=== PATIENT | male | born 1935 | race Caucasian/White ===

== ENCOUNTER → 2018-05-06 | Outpatient (REF) | payer MEDICARE, OTHER ==
[2018-05-06 18:35] LABS: APPEARANCE, URINE TURBID (CLEAR); BACTERIA, URINE AUTO 1+ (NEGATIVE); BILIRUBIN, URINE AUTO NEGATIVE (NEGATIVE); BLOOD, URINE BLOOD 2+ (NEGATIVE); COLOR, URINE YELLOW (YELLOW); GLUCOSE, URINE (UA) AUTO 2+ mg/dL (NEGATIVE); KETONE, URINE AUTO NEGATIVE (NEGATIVE); LEUKOCYTE ESTERASE, URINE AUTO 2+ (NEGATIVE); NITRITE, URINE AUTO POSITIVE (NEGATIVE); PROTEIN, URINE AUTO 2+ mg/dL (NEGATIVE); RBC, URINE AUTO 34 /HPF (0-3); SPECIFIC GRAVITY URINE AUTO 1.017 (1.002-1.035); SQUAMOUS EPITHELIAL CELL UR AU 0 /HPF (0-6); UROBILINOGEN, URINE AUTO 0.2 mg/dL (0.0-2.0); WBC, URINE AUTO TNTC /HPF (0-3)
== END ==
LOC: M SMT 16:51
DX: R35.0 Frequency of micturition (principal); R30.0 Dysuria
CPT/HCPCS: 81001

== ENCOUNTER 2018-05-11 14:02 | Inpatient (IN) | payer MEDICARE, OTHER ==
[2018-05-11 17:15] LABS: BASO # 0.1 10^3/uL (0.0-0.2); BASO % 0.5 % (0.0-1.0); EOS % 0.1 % (0.0-3.0); HEMATOCRIT 40.3 % (42.0-52.0); HEMOGLOBIN 13.3 g/dl (13.5-17.5); IMMATURE GRANULOCYTE % 0.7 % (0-3.0); LYMPH # 1.4 10^3/uL (1.5-4.5); LYMPH % 11.5 % (24.0-44.0); MEAN CORPUSCULAR HEMOGLOBIN 30.8 pg (27.0-33.0); MEAN CORPUSCULAR VOLUME 93.3 fl (80.0-96.0); MONO # 0.9 10^3/uL (0.0-0.8); MONO % 7.4 % (0.0-5.0); NEUTROPHILS # 9.8 10^3/uL (1.8-7.7); NEUTROPHILS % 79.8 % (36.0-66.0); PLATELET COUNT, AUTOMATED 272 10^3/uL (150-450); RED BLOOD COUNT 4.32 10^6/uL (4.30-6.10); RED CELL DISTRIBUTION WIDTH 12.8 % (11.5-14.5); WHITE BLOOD COUNT 12.2 10^3/uL (4.0-10.0)
[2018-05-11 17:39] LABS: ALBUMIN 3.1 GM/DL (3.2-5.2); ALKALINE PHOSPHATASE 93 U/L (45-117); ALT/SGPT 15 U/L (12-78); ANION GAP 5 MEQ/L (8-16); AST/SGOT 10 U/L (7-37); BILIRUBIN,DIRECT 0.2 MG/DL (0.0-0.2); BILIRUBIN,TOTAL 0.8 MG/DL (0.2-1.0); BLOOD UREA NITROGEN 14 MG/DL (7-18); CALCIUM LEVEL 8.6 MG/DL (8.8-10.2); CARBON DIOXIDE LEVEL 30 MEQ/L (21-32); CHLORIDE LEVEL 103 MEQ/L (98-107); CPK CREATINE PHOSPHOKINASE 40 U/L (39-308); CREATININE FOR GFR 0.97 MG/DL (0.70-1.30); GLOMERULAR FILTRATION RATE > 60.0 (>35); GLUCOSE, FASTING 208 MG/DL (70-100); POTASSIUM SERUM 3.8 MEQ/L (3.5-5.1); SODIUM LEVEL 138 MEQ/L (136-145); TOTAL PROTEIN 7.5 GM/DL (6.4-8.2)
[2018-05-11 17:52] LABS: ERYTHROCYTE SEDIMENTATION RATE 59 mm/hr (0-30)
[2018-05-11] MEDS: PIPERACILLIN/TAZOBACTAM SOD 3.375 GM in D5W MINI-BAG PLUS 50 ML IV (19:23)
[2018-05-11] MEDS: HumaLOG INSULIN (NovoLOG) PER UNIT SC (21:00)
[2018-05-11 21:22] LABS: KETONE, URINE AUTO RFX NEGATIVE (NEGATIVE); NITRITE, URINE AUTO RFX NEGATIVE (NEGATIVE); RBC, URINE AUTO RFX 8 /HPF (0-3); SPECIFIC GRAVITY UR AUTO RFX 1.016 (1.002-1.035); SQUAM EPITHELIAL CELL UR AURFX 1 /HPF (0-6)
[2018-05-11 21:26] LABS: LEUKOCYTE ESTERASE UR AUTO RFX 3+ (NEGATIVE); WBC, URINE AUTO RFX 130 /HPF (0-3)
[2018-05-12] MEDS ORDERED: GLUCAGON FOR INJ 1 MG VIAL (J1610) SC (00:15)
[2018-05-12] MEDS ORDERED: GLUCOSE 4 GM CHEW TABLET PO (00:15)
[2018-05-12] MEDS ORDERED: DEXTROSE 50% 50 ML SYRINGE IV (00:15)
[2018-05-12 00:28] LABS: URIC ACID 4.1 MG/DL (3.5-7.2)
[2018-05-12] MEDS ORDERED: cefTRIAXone SOD 2 GM VIAL (J0696) IM (02:00)
[2018-05-12] MEDS: VANCOMYCIN HCL 1,000 MG, VIAL MATE ADAPTER 1 EACH in D5W 250 ML IV ×2 (02:10→12:20)
[2018-05-12] MEDS: NS 1,000 ML IV ×3 (02:10→19:53)
[2018-05-12 02:15] LABS: BEDSIDE GLUCOSE 176 MG/DL (83-110)
[2018-05-12] MEDS: TAMSULOSIN 0.4 MG CAP PO ×2 (02:27→20:02)
[2018-05-12] MEDS: ATORVASTATIN 20 MG TAB PO ×2 (02:27→20:02)
[2018-05-12] MEDS: FINASTERIDE 5 MG TAB PO ×2 (02:27→20:02)
[2018-05-12] MEDS: cefTRIAXone SOD 2 GM in D5W MINI-BAG PLUS 50 ML IV (03:25)
[2018-05-12 06:14] LABS: BASO % 0.3 % (0.0-1.0); HEMATOCRIT 36.9 % (42.0-52.0); HEMOGLOBIN 12.5 g/dl (13.5-17.5); LYMPH # 1.2 10^3/uL (1.5-4.5); LYMPH % 8.7 % (24.0-44.0); MEAN CORPUSCULAR HEMOGLOBIN 30.9 pg (27.0-33.0); MEAN CORPUSCULAR HGB CONC 33.9 g/dl (32.0-36.5); MEAN CORPUSCULAR VOLUME 91.1 fl (80.0-96.0); MONO # 1.1 10^3/uL (0.0-0.8); MONO % 8.1 % (0.0-5.0); NEUTROPHILS # 11.4 10^3/uL (1.8-7.7); NEUTROPHILS % 81.9 % (36.0-66.0); PLATELET COUNT, AUTOMATED 252 10^3/uL (150-450); RED BLOOD COUNT 4.05 10^6/uL (4.30-6.10); RED CELL DISTRIBUTION WIDTH 12.8 % (11.5-14.5); WHITE BLOOD COUNT 13.9 10^3/uL (4.0-10.0)
[2018-05-12 06:39] LABS: ANION GAP 10 MEQ/L (8-16); BLOOD UREA NITROGEN 13 MG/DL (7-18); CALCIUM LEVEL 8.3 MG/DL (8.8-10.2); CARBON DIOXIDE LEVEL 26 MEQ/L (21-32); CHLORIDE LEVEL 102 MEQ/L (98-107); CREATININE FOR GFR 0.81 MG/DL (0.70-1.30); GLOMERULAR FILTRATION RATE > 60.0 (>35); GLUCOSE, FASTING 179 MG/DL (70-100); POTASSIUM SERUM 3.5 MEQ/L (3.5-5.1); SODIUM LEVEL 138 MEQ/L (136-145)
[2018-05-12] MEDS ORDERED: LIDOCAINE 1% MDV 20ML VIAL As Ordered (08:08)
[2018-05-12] MEDS: LIDOCAINE 1% MDV 20ML VIAL SC (08:23)
[2018-05-12] MEDS: ENOXAPARIN 40 MG/0.4 ML SYRINGE (J1650) SC (09:09)
[2018-05-12] MEDS: HumaLOG INSULIN (NovoLOG) PER UNIT SC ×4 (09:09→20:14)
[2018-05-12] MEDS: FOLIC ACID 1 MG TAB PO (09:22)
[2018-05-12] MEDS: OMEGA-3 1050MG CAPSULE PO (09:22)
[2018-05-12] MEDS: CEFEPIME HCL 1 GM in D5W MINI-BAG PLUS 50 ML IV ×2 (09:23→20:02)
[2018-05-12] MEDS: ACETAMINOPHEN TAB 650MG DOSE (2X325MG) PO (09:23)
[2018-05-12 09:34] LABS: CRYSTALS, BODY FLUID NONE SEEN (NONE SEEN); SOURCE, BODY FLUID CRYSTALS LFT KNEE
[2018-05-12 09:35] LABS: SOURCE, BODY FLUID GLUCOSE LFT KNEE; SOURCE, BODY FLUID URIC ACID LFT KNEE; URIC ACID, BODY FLUID 4.7 MG/DL (NOT ESTABLISHED)
[2018-05-12] MEDS: ASPIRIN 81 MG ENTERIC TAB PO (09:46)
[2018-05-12 09:54] LABS: RBC BODY FLUID 8 10^3/uL (<2); WBC BODY FLUID 42691 /uL (0-10)
[2018-05-12 09:57] LABS: APPEARANCE, BODY FLUID TURBID (CLEAR); BF DIFF IF INDICATED? YES (NO); SYNOVIAL FLUID COLOR YELLOW (YELLOW)
[2018-05-12 09:58] LABS: SOURCE, BODY FLUID LFT KNEE
[2018-05-12] MEDS ORDERED: NS 1,000 ML IV (10:45)
[2018-05-12 11:07] LABS: BF MONONUCLEAR CELL % 8.2 % (0-0); BF POLYMORPHONUCLEAR CELL % 91.8 % (0-0); RBC BODY FLUID 3 10^3/uL (<2); WBC BODY FLUID 27794 /uL (0-10)
[2018-05-12 11:09] LABS: APPEARANCE, BODY FLUID TURBID (CLEAR); BF DIFF IF INDICATED? YES (NO); SOURCE, BODY FLUID RT KNEE; SYNOVIAL FLUID COLOR YELLOW (YELLOW)
[2018-05-12 11:28] LABS: CRYSTALS, BODY FLUID NONE SEEN (NONE SEEN); SOURCE, BODY FLUID CRYSTALS RT KNEE
[2018-05-12 11:33] LABS: BEDSIDE GLUCOSE 187 MG/DL (83-110)
[2018-05-12 11:40] LABS: SOURCE, BODY FLUID GLUCOSE RT KNEE; SOURCE, BODY FLUID URIC ACID RT KNEE; URIC ACID, BODY FLUID 4.6 MG/DL (NOT ESTABLISHED)
[2018-05-12] MEDS: PERCOCET 5MG/325MG TAB PO (12:21)
[2018-05-12 14:03] LABS: BODY FLUID RHEUMATOID SCREEN NEGATIVE (NEGATIVE); MUCIN CLOT TEST 4+ (4+)
[2018-05-12 14:04] LABS: BODY FLUID RHEUMATOID SCREEN NEGATIVE (NEGATIVE); MUCIN CLOT TEST 4+ (4+)
[2018-05-12 16:38] LABS: BEDSIDE GLUCOSE 194 MG/DL (83-110)
[2018-05-12 19:57] LABS: BEDSIDE GLUCOSE 152 MG/DL (83-110)
[2018-05-13] MEDS: NS 1,000 ML IV ×2 (01:52→15:00)
[2018-05-13 06:07] LABS: BEDSIDE GLUCOSE 149 MG/DL (83-110)
[2018-05-13 08:35] LABS: HEMATOCRIT 34.9 % (42.0-52.0); HEMOGLOBIN 11.5 g/dl (13.5-17.5); MEAN CORPUSCULAR HEMOGLOBIN 30.2 pg (27.0-33.0); MEAN CORPUSCULAR VOLUME 91.6 fl (80.0-96.0); PLATELET COUNT, AUTOMATED 231 10^3/uL (150-450); RED BLOOD COUNT 3.81 10^6/uL (4.30-6.10); RED CELL DISTRIBUTION WIDTH 12.7 % (11.5-14.5); WHITE BLOOD COUNT 10.8 10^3/uL (4.0-10.0)
[2018-05-13 08:40] LABS: ANION GAP 8 MEQ/L (8-16); BLOOD UREA NITROGEN 14 MG/DL (7-18); CALCIUM LEVEL 7.8 MG/DL (8.8-10.2); CARBON DIOXIDE LEVEL 25 MEQ/L (21-32); CHLORIDE LEVEL 107 MEQ/L (98-107); CREATININE FOR GFR 0.71 MG/DL (0.70-1.30); GLOMERULAR FILTRATION RATE > 60.0 (>35); GLUCOSE, FASTING 148 MG/DL (70-100); POTASSIUM SERUM 3.4 MEQ/L (3.5-5.1); RHEUMATOID FACTOR QUANT 10.6 IU/ML (<15.0); SODIUM LEVEL 140 MEQ/L (136-145)
[2018-05-13 08:54] LABS: ERYTHROCYTE SEDIMENTATION RATE 84 mm/hr (0-30)
[2018-05-13] MEDS: ENOXAPARIN 40 MG/0.4 ML SYRINGE (J1650) SC (09:23)
[2018-05-13] MEDS: ACETAMINOPHEN TAB 650MG DOSE (2X325MG) PO (09:23)
[2018-05-13] MEDS: HumaLOG INSULIN (NovoLOG) PER UNIT SC ×4 (09:23→21:00)
[2018-05-13] MEDS: OMEGA-3 1050MG CAPSULE PO (09:24)
[2018-05-13] MEDS: CEFEPIME HCL 1 GM in D5W MINI-BAG PLUS 50 ML IV ×2 (09:24→21:23)
[2018-05-13] MEDS: ASPIRIN 81 MG ENTERIC TAB PO (09:24)
[2018-05-13] MEDS: FOLIC ACID 1 MG TAB PO (09:24)
[2018-05-13 11:31] LABS: BEDSIDE GLUCOSE 160 MG/DL (83-110)
[2018-05-13 11:49] LABS: VANCOMYCIN LEVEL TROUGH 3.6 UG/ML (10.0-20.0)
[2018-05-13 12:05] LABS: BEDSIDE GLUCOSE 154 MG/DL (83-110)
[2018-05-13] MEDS: DICLOFENAC EPOLAMINE 1.3 % PATCH TOP ×2 (12:22→21:25)
[2018-05-13] MEDS: VANCOMYCIN HCL 1,000 MG, VIAL MATE ADAPTER 1 EACH in D5W 250 ML IV (12:22)
[2018-05-13 16:31] LABS: BEDSIDE GLUCOSE 148 MG/DL (83-110)
[2018-05-13 20:33] LABS: BEDSIDE GLUCOSE 197 MG/DL (83-110)
[2018-05-13] MEDS: TAMSULOSIN 0.4 MG CAP PO (21:25)
[2018-05-13] MEDS: ATORVASTATIN 20 MG TAB PO (21:25)
[2018-05-13] MEDS: FINASTERIDE 5 MG TAB PO (21:25)
[2018-05-14 00:07] LABS: Lyme Disease IgG/IgM Antibodie <0.91 ISR (0.00-0.90); Lyme Disease IgM Ab Quantitati <0.80 index (0.00-0.79)
[2018-05-14] MEDS: NS 1,000 ML IV ×2 (00:14→13:39)
[2018-05-14 06:25] LABS: HEMATOCRIT 33.8 % (42.0-52.0); HEMOGLOBIN 11.3 g/dl (13.5-17.5); MEAN CORPUSCULAR HEMOGLOBIN 30.1 pg (27.0-33.0); MEAN CORPUSCULAR HGB CONC 33.4 g/dl (32.0-36.5); MEAN CORPUSCULAR VOLUME 90.1 fl (80.0-96.0); PLATELET COUNT, AUTOMATED 228 10^3/uL (150-450); RED BLOOD COUNT 3.75 10^6/uL (4.30-6.10); RED CELL DISTRIBUTION WIDTH 12.7 % (11.5-14.5); WHITE BLOOD COUNT 8.7 10^3/uL (4.0-10.0)
[2018-05-14 06:58] LABS: ANION GAP 7 MEQ/L (8-16); BLOOD UREA NITROGEN 13 MG/DL (7-18); CALCIUM LEVEL 7.9 MG/DL (8.8-10.2); CARBON DIOXIDE LEVEL 25 MEQ/L (21-32); CHLORIDE LEVEL 108 MEQ/L (98-107); GLOMERULAR FILTRATION RATE > 60.0 (>35); GLUCOSE, FASTING 161 MG/DL (70-100); POTASSIUM SERUM 3.4 MEQ/L (3.5-5.1); SODIUM LEVEL 140 MEQ/L (136-145)
[2018-05-14 07:12] LABS: ERYTHROCYTE SEDIMENTATION RATE 73 mm/hr (0-30)
[2018-05-14] MEDS: OMEGA-3 1050MG CAPSULE PO (08:04)
[2018-05-14] MEDS: DICLOFENAC EPOLAMINE 1.3 % PATCH TOP ×2 (08:04→20:34)
[2018-05-14] MEDS: FOLIC ACID 1 MG TAB PO (08:04)
[2018-05-14] MEDS: CEFEPIME HCL 1 GM in D5W MINI-BAG PLUS 50 ML IV ×2 (08:04→20:34)
[2018-05-14] MEDS: ASPIRIN 81 MG ENTERIC TAB PO (08:04)
[2018-05-14] MEDS: ENOXAPARIN 40 MG/0.4 ML SYRINGE (J1650) SC (08:04)
[2018-05-14] MEDS: POTASSIUM CHLORIDE 10 MEQ SR TABLET PO (08:23)
[2018-05-14] MEDS: HumaLOG INSULIN (NovoLOG) PER UNIT SC ×4 (08:24→20:33)
[2018-05-14 11:26] LABS: BEDSIDE GLUCOSE 180 MG/DL (83-110)
[2018-05-14 16:37] LABS: BEDSIDE GLUCOSE 154 MG/DL (83-110)
[2018-05-14 20:19] LABS: BEDSIDE GLUCOSE 290 MG/DL (83-110)
[2018-05-14] MEDS: FINASTERIDE 5 MG TAB PO (20:33)
[2018-05-14] MEDS: ATORVASTATIN 20 MG TAB PO (20:33)
[2018-05-14] MEDS: amLODIPine 5 MG TAB PO (20:33)
[2018-05-14] MEDS: TAMSULOSIN 0.4 MG CAP PO (20:33)
[2018-05-14] MEDS: ACETAMINOPHEN TAB 650MG DOSE (2X325MG) PO (22:18)
[2018-05-15] MEDS: ACETAMINOPHEN TAB 650MG DOSE (2X325MG) PO (03:11)
[2018-05-15] MEDS: NS 1,000 ML IV ×2 (05:09→22:07)
[2018-05-15 05:54] LABS: ANION GAP 7 MEQ/L (8-16); BLOOD UREA NITROGEN 14 MG/DL (7-18); CALCIUM LEVEL 7.8 MG/DL (8.8-10.2); CARBON DIOXIDE LEVEL 27 MEQ/L (21-32); CHLORIDE LEVEL 110 MEQ/L (98-107); CREATININE FOR GFR 0.61 MG/DL (0.70-1.30); GLOMERULAR FILTRATION RATE > 60.0 (>35); GLUCOSE, FASTING 172 MG/DL (70-100); POTASSIUM SERUM 3.7 MEQ/L (3.5-5.1); SODIUM LEVEL 144 MEQ/L (136-145)
[2018-05-15] MEDS: ASPIRIN 81 MG ENTERIC TAB PO (08:09)
[2018-05-15] MEDS: amLODIPine 10 MG TAB PO (08:09)
[2018-05-15] MEDS: FOLIC ACID 1 MG TAB PO (08:09)
[2018-05-15] MEDS: OMEGA-3 1050MG CAPSULE PO (08:09)
[2018-05-15] MEDS: HumaLOG INSULIN (NovoLOG) PER UNIT SC ×4 (08:10→21:05)
[2018-05-15] MEDS: DICLOFENAC EPOLAMINE 1.3 % PATCH TOP ×2 (08:10→21:06)
[2018-05-15] MEDS: traMADol 50 MG TAB PO (09:58)
[2018-05-15 11:37] LABS: BEDSIDE GLUCOSE 290 MG/DL (83-110)
[2018-05-15 12:12] LABS: HEMOGLOBIN 11.4 g/dl (13.5-17.5); MEAN CORPUSCULAR HEMOGLOBIN 30.3 pg (27.0-33.0); MEAN CORPUSCULAR HGB CONC 33.5 g/dl (32.0-36.5); MEAN CORPUSCULAR VOLUME 90.4 fl (80.0-96.0); PLATELET COUNT, AUTOMATED 233 10^3/uL (150-450); RED BLOOD COUNT 3.76 10^6/uL (4.30-6.10); RED CELL DISTRIBUTION WIDTH 12.8 % (11.5-14.5); WHITE BLOOD COUNT 7.9 10^3/uL (4.0-10.0)
[2018-05-15 12:32] LABS: ERYTHROCYTE SEDIMENTATION RATE 77 mm/hr (0-30)
[2018-05-15] MEDS: HYDROCORTISONE 1% CREAM 30 GM TOP ×2 (13:21→21:06)
[2018-05-15] MEDS: ACETAMINOPHEN 500 MG TAB PO (15:12)
[2018-05-15 16:51] LABS: BEDSIDE GLUCOSE 135 MG/DL (83-110)
[2018-05-15 20:21] LABS: BEDSIDE GLUCOSE 245 MG/DL (83-110)
[2018-05-15] MEDS: TAMSULOSIN 0.4 MG CAP PO (21:05)
[2018-05-15] MEDS: FINASTERIDE 5 MG TAB PO (21:05)
[2018-05-15] MEDS: ATORVASTATIN 20 MG TAB PO (21:05)
[2018-05-16] MEDS: ACETAMINOPHEN 500 MG TAB PO ×2 (04:54→22:08)
[2018-05-16 06:58] LABS: HEMATOCRIT 32.4 % (42.0-52.0); HEMOGLOBIN 10.9 g/dl (13.5-17.5); MEAN CORPUSCULAR HEMOGLOBIN 30.1 pg (27.0-33.0); MEAN CORPUSCULAR HGB CONC 33.6 g/dl (32.0-36.5); MEAN CORPUSCULAR VOLUME 89.5 fl (80.0-96.0); PLATELET COUNT, AUTOMATED 250 10^3/uL (150-450); RED BLOOD COUNT 3.62 10^6/uL (4.30-6.10); RED CELL DISTRIBUTION WIDTH 12.6 % (11.5-14.5); WHITE BLOOD COUNT 7.3 10^3/uL (4.0-10.0)
[2018-05-16 07:21] LABS: ANION GAP 8 MEQ/L (8-16); BLOOD UREA NITROGEN 13 MG/DL (7-18); C REACTIVE PROTEIN QUANTITATIV 9.31 MG/DL (0.00-0.30); CALCIUM LEVEL 8.3 MG/DL (8.8-10.2); CARBON DIOXIDE LEVEL 25 MEQ/L (21-32); CHLORIDE LEVEL 105 MEQ/L (98-107); CREATININE FOR GFR 0.56 MG/DL (0.70-1.30); GLOMERULAR FILTRATION RATE > 60.0 (>35); GLUCOSE, FASTING 176 MG/DL (70-100); POTASSIUM SERUM 3.7 MEQ/L (3.5-5.1); SODIUM LEVEL 138 MEQ/L (136-145)
[2018-05-16 07:31] LABS: ERYTHROCYTE SEDIMENTATION RATE 77 mm/hr (0-30)
[2018-05-16] MEDS: OMEGA-3 1050MG CAPSULE PO (07:42)
[2018-05-16] MEDS: ASPIRIN 81 MG ENTERIC TAB PO (07:42)
[2018-05-16] MEDS: HYDROCORTISONE 1% CREAM 30 GM TOP ×2 (07:43→20:20)
[2018-05-16] MEDS: FOLIC ACID 1 MG TAB PO (07:43)
[2018-05-16] MEDS: amLODIPine 10 MG TAB PO (07:43)
[2018-05-16] MEDS: HumaLOG INSULIN (NovoLOG) PER UNIT SC ×4 (07:44→20:19)
[2018-05-16] MEDS: DICLOFENAC EPOLAMINE 1.3 % PATCH TOP ×2 (07:44→20:20)
[2018-05-16] MEDS: PERCOCET 5MG/325MG TAB PO (07:45)
[2018-05-16] MEDS ORDERED: traMADol 50 MG TAB PO (08:30)
[2018-05-16 11:47] LABS: BEDSIDE GLUCOSE 214 MG/DL (83-110)
[2018-05-16 16:15] LABS: BEDSIDE GLUCOSE 256 MG/DL (83-110)
[2018-05-16 20:13] LABS: BEDSIDE GLUCOSE 146 MG/DL (83-110)
[2018-05-16] MEDS: FINASTERIDE 5 MG TAB PO (20:19)
[2018-05-16] MEDS: TAMSULOSIN 0.4 MG CAP PO (20:19)
[2018-05-16] MEDS: ATORVASTATIN 20 MG TAB PO (20:19)
[2018-05-17] MEDS: ACETAMINOPHEN 500 MG TAB PO (06:30)
[2018-05-17 06:45] LABS: HEMATOCRIT 35.3 % (42.0-52.0); HEMOGLOBIN 11.7 g/dl (13.5-17.5); MEAN CORPUSCULAR HEMOGLOBIN 30.1 pg (27.0-33.0); MEAN CORPUSCULAR HGB CONC 33.1 g/dl (32.0-36.5); MEAN CORPUSCULAR VOLUME 90.7 fl (80.0-96.0); PLATELET COUNT, AUTOMATED 300 10^3/uL (150-450); RED BLOOD COUNT 3.89 10^6/uL (4.30-6.10); RED CELL DISTRIBUTION WIDTH 12.7 % (11.5-14.5); WHITE BLOOD COUNT 6.5 10^3/uL (4.0-10.0)
[2018-05-17 07:07] LABS: ANION GAP 9 MEQ/L (8-16); BLOOD UREA NITROGEN 13 MG/DL (7-18); C REACTIVE PROTEIN QUANTITATIV 7.22 MG/DL (0.00-0.30); CALCIUM LEVEL 8.5 MG/DL (8.8-10.2); CARBON DIOXIDE LEVEL 29 MEQ/L (21-32); CHLORIDE LEVEL 106 MEQ/L (98-107); CREATININE FOR GFR 0.66 MG/DL (0.70-1.30); GLOMERULAR FILTRATION RATE > 60.0 (>35); GLUCOSE, FASTING 165 MG/DL (70-100); POTASSIUM SERUM 3.7 MEQ/L (3.5-5.1); SODIUM LEVEL 144 MEQ/L (136-145)
[2018-05-17 07:10] LABS: ERYTHROCYTE SEDIMENTATION RATE 73 mm/hr (0-30)
[2018-05-17] MEDS: ASPIRIN 81 MG ENTERIC TAB PO (08:08)
[2018-05-17] MEDS: OMEGA-3 1050MG CAPSULE PO (08:08)
[2018-05-17] MEDS: FOLIC ACID 1 MG TAB PO (08:09)
[2018-05-17] MEDS: amLODIPine 10 MG TAB PO (08:09)
[2018-05-17] MEDS: HumaLOG INSULIN (NovoLOG) PER UNIT SC ×2 (08:10→12:48)
[2018-05-17] MEDS: DICLOFENAC EPOLAMINE 1.3 % PATCH TOP (08:10)
[2018-05-17] MEDS: HYDROCORTISONE 1% CREAM 30 GM TOP (08:11)
[2018-05-17 11:58] LABS: BEDSIDE GLUCOSE 205 MG/DL (83-110)
== END 2018-05-17 14:34 | DRG 872 ==
LOC: M ED INP 23:53 → M MSPAV 05-12 00:52 → M ED 14:02
PROC: 0S9D3ZZ Drainage of Left Knee Joint, Percutaneous Approach (ICD-10-PCS; principal; 2018-05-12)
PROC: 0S9C3ZZ Drainage of Right Knee Joint, Percutaneous Approach (ICD-10-PCS; 2018-05-12)
DX: A41.9 Sepsis, unspecified organism (principal); N39.0 Urinary tract infection, site not specified; E11.9 Type 2 diabetes mellitus without complications; N40.0 Benign prostatic hyperplasia without lower urinary tract symptoms; Z79.82 Long term (current) use of aspirin; Z79.84 Long term (current) use of oral hypoglycemic drugs; Z79.899 Other long term (current) drug therapy; Z88.2 Allergy status to sulfonamides; Z98.1 Arthrodesis status; M25.461 Effusion, right knee; M25.462 Effusion, left knee; M17.0 Bilateral primary osteoarthritis of knee

== ENCOUNTER 2018-05-17 14:38 | Inpatient (IN) | payer MEDICARE, OTHER ==
[2018-05-17] MEDS ORDERED: BISACODYL 10 MG SUPP PR (15:15)
[2018-05-17] MEDS ORDERED: ONDANSETRON 4 MG TAB (S0181) PO (15:15)
[2018-05-17] MEDS ORDERED: FLEET ENEMA PR (15:15)
[2018-05-17] MEDS ORDERED: SIMETHICONE 80 MG CHEW TAB PO (15:15)
[2018-05-17] MEDS: MAGNESIUM CITRATE 300 ML BTL PO (17:00)
[2018-05-17] MEDS: ACETAMINOPHEN 500 MG TAB PO ×2 (17:01→21:51)
[2018-05-17] MEDS: MIRALAX *UNIT DOSE* 17GM PACKET PO (17:01)
[2018-05-17] MEDS: metFORMIN (GLUCOPHAGE) 500 MG TAB PO (17:01)
[2018-05-17] MEDS: ATORVASTATIN 20 MG TAB PO (21:50)
[2018-05-17] MEDS: DICLOFENAC EPOLAMINE 1.3 % PATCH TOP (21:51)
[2018-05-17] MEDS: HEPARIN SOD (PORCINE) 5000 UNITS/ML VIAL SC (21:51)
[2018-05-17] MEDS: FINASTERIDE 5 MG TAB PO (21:51)
[2018-05-17] MEDS: SENOKOT S TAB PO (21:51)
[2018-05-17] MEDS: TAMSULOSIN 0.4 MG CAP PO (21:51)
[2018-05-18 07:03] LABS: BASO # 0.1 10^3/uL (0.0-0.2); BASO % 0.7 % (0.0-1.0); EOS # 0.5 10^3/uL (0.0-0.50); EOS % 6.2 % (0.0-3.0); HEMATOCRIT 35.9 % (42.0-52.0); HEMOGLOBIN 11.9 g/dl (13.5-17.5); IMMATURE GRANULOCYTE % 0.4 % (0-3.0); LYMPH # 1.5 10^3/uL (1.5-4.5); LYMPH % 19.6 % (24.0-44.0); MEAN CORPUSCULAR HGB CONC 33.1 g/dl (32.0-36.5); MEAN CORPUSCULAR VOLUME 90.4 fl (80.0-96.0); MONO # 0.6 10^3/uL (0.0-0.8); MONO % 7.3 % (0.0-5.0); NEUTROPHILS % 65.8 % (36.0-66.0); PLATELET COUNT, AUTOMATED 360 10^3/uL (150-450); RED BLOOD COUNT 3.97 10^6/uL (4.30-6.10); RED CELL DISTRIBUTION WIDTH 12.8 % (11.5-14.5); WHITE BLOOD COUNT 7.5 10^3/uL (4.0-10.0)
[2018-05-18 07:34] LABS: ALBUMIN 2.1 GM/DL (3.2-5.2); ALBUMIN/GLOBULIN RATIO 0.46 (1.00-1.93); ALKALINE PHOSPHATASE 88 U/L (45-117); ALT/SGPT 43 U/L (12-78); ANION GAP 6 MEQ/L (8-16); AST/SGOT 28 U/L (7-37); BILIRUBIN,TOTAL 0.4 MG/DL (0.2-1.0); BLOOD UREA NITROGEN 12 MG/DL (7-18); CALCIUM LEVEL 8.5 MG/DL (8.8-10.2); CARBON DIOXIDE LEVEL 31 MEQ/L (21-32); CHLORIDE LEVEL 105 MEQ/L (98-107); CREATININE FOR GFR 0.64 MG/DL (0.70-1.30); GLOMERULAR FILTRATION RATE > 60.0 (>35); GLUCOSE, FASTING 159 MG/DL (70-100); SODIUM LEVEL 142 MEQ/L (136-145); TOTAL PROTEIN 6.7 GM/DL (6.4-8.2)
[2018-05-18] MEDS: DICLOFENAC EPOLAMINE 1.3 % PATCH TOP ×2 (08:04→21:26)
[2018-05-18] MEDS: HEPARIN SOD (PORCINE) 5000 UNITS/ML VIAL SC ×2 (08:04→21:26)
[2018-05-18] MEDS: metFORMIN (GLUCOPHAGE) 500 MG TAB PO ×2 (08:05→17:08)
[2018-05-18] MEDS: ACETAMINOPHEN 500 MG TAB PO ×3 (08:05→21:25)
[2018-05-18] MEDS: amLODIPine 10 MG TAB PO (08:05)
[2018-05-18] MEDS: SENOKOT S TAB PO ×2 (08:05→21:00)
[2018-05-18] MEDS: OMEGA-3 1050MG CAPSULE PO (08:05)
[2018-05-18] MEDS: MIRALAX *UNIT DOSE* 17GM PACKET PO (08:06)
[2018-05-18] MEDS: ASPIRIN 81 MG ENTERIC TAB PO (08:06)
[2018-05-18] MEDS: FOLIC ACID 1 MG TAB PO (08:06)
[2018-05-18] MEDS ORDERED: traZODone 50 MG TAB PO (15:15)
[2018-05-18] MEDS: traZODone 50 MG TAB PO (21:25)
[2018-05-18] MEDS: FINASTERIDE 5 MG TAB PO (21:25)
[2018-05-18] MEDS: ATORVASTATIN 20 MG TAB PO (21:25)
[2018-05-18] MEDS: TAMSULOSIN 0.4 MG CAP PO (21:25)
[2018-05-19] MEDS: metFORMIN (GLUCOPHAGE) 500 MG TAB PO ×2 (07:59→17:58)
[2018-05-19] MEDS: HEPARIN SOD (PORCINE) 5000 UNITS/ML VIAL SC ×2 (07:59→20:39)
[2018-05-19] MEDS: amLODIPine 10 MG TAB PO (07:59)
[2018-05-19] MEDS: OMEGA-3 1050MG CAPSULE PO (07:59)
[2018-05-19] MEDS: FOLIC ACID 1 MG TAB PO (07:59)
[2018-05-19] MEDS: ACETAMINOPHEN 500 MG TAB PO ×3 (08:00→20:38)
[2018-05-19] MEDS: DICLOFENAC EPOLAMINE 1.3 % PATCH TOP ×2 (08:00→20:38)
[2018-05-19] MEDS: MIRALAX *UNIT DOSE* 17GM PACKET PO (08:00)
[2018-05-19] MEDS: ASPIRIN 81 MG ENTERIC TAB PO (08:00)
[2018-05-19] MEDS: SENOKOT S TAB PO ×2 (08:01→20:39)
[2018-05-19] MEDS: ANUSOL HC CREAM 30GM TOP (11:20)
[2018-05-19] MEDS: HYDROCORTISONE 1% CREAM 30 GM TOP ×2 (12:10→20:40)
[2018-05-19] MEDS ORDERED: PILL CRUSHER/CUTTER 1 EACH XX (14:45)
[2018-05-19] MEDS: zolPIDEM TARTRATE 5 MG TAB PO (20:39)
[2018-05-19] MEDS: FINASTERIDE 5 MG TAB PO (20:39)
[2018-05-19] MEDS: ATORVASTATIN 20 MG TAB PO (20:39)
[2018-05-19] MEDS: TAMSULOSIN 0.4 MG CAP PO (20:39)
[2018-05-19] MEDS ORDERED: zolPIDEM TARTRATE 5 MG TAB PO (21:00)
[2018-05-20] MEDS: SENOKOT S TAB PO ×2 (08:40→21:44)
[2018-05-20] MEDS: metFORMIN (GLUCOPHAGE) 500 MG TAB PO ×2 (08:40→18:55)
[2018-05-20] MEDS: amLODIPine 10 MG TAB PO (08:40)
[2018-05-20] MEDS: ASPIRIN 81 MG ENTERIC TAB PO (08:40)
[2018-05-20] MEDS: ACETAMINOPHEN 500 MG TAB PO ×3 (08:40→18:56)
[2018-05-20] MEDS: OMEGA-3 1050MG CAPSULE PO (08:40)
[2018-05-20] MEDS: FOLIC ACID 1 MG TAB PO (08:41)
[2018-05-20] MEDS: MIRALAX *UNIT DOSE* 17GM PACKET PO (08:41)
[2018-05-20] MEDS: DICLOFENAC EPOLAMINE 1.3 % PATCH TOP ×2 (08:42→21:44)
[2018-05-20] MEDS: HYDROCORTISONE 1% CREAM 30 GM TOP ×2 (08:42→21:44)
[2018-05-20] MEDS: HEPARIN SOD (PORCINE) 5000 UNITS/ML VIAL SC ×2 (08:42→21:44)
[2018-05-20] MEDS: traMADol 50 MG TAB PO (11:55)
[2018-05-20] MEDS: FINASTERIDE 5 MG TAB PO (21:44)
[2018-05-20] MEDS: ATORVASTATIN 20 MG TAB PO (21:44)
[2018-05-20] MEDS: zolPIDEM TARTRATE 5 MG TAB PO (21:44)
[2018-05-20] MEDS: TAMSULOSIN 0.4 MG CAP PO (21:44)
[2018-05-21] MEDS: ACETAMINOPHEN 500 MG TAB PO ×3 (06:47→17:45)
[2018-05-21] MEDS: HYDROCORTISONE 1% CREAM 30 GM TOP ×2 (09:00→20:57)
[2018-05-21] MEDS: HEPARIN SOD (PORCINE) 5000 UNITS/ML VIAL SC ×2 (09:01→20:55)
[2018-05-21] MEDS: DICLOFENAC EPOLAMINE 1.3 % PATCH TOP ×2 (09:01→20:56)
[2018-05-21] MEDS: MIRALAX *UNIT DOSE* 17GM PACKET PO (09:02)
[2018-05-21] MEDS: FOLIC ACID 1 MG TAB PO (09:02)
[2018-05-21] MEDS: SENOKOT S TAB PO ×2 (09:02→20:55)
[2018-05-21] MEDS: metFORMIN (GLUCOPHAGE) 500 MG TAB PO ×2 (09:02→17:45)
[2018-05-21] MEDS: OMEGA-3 1050MG CAPSULE PO (09:02)
[2018-05-21] MEDS: ASPIRIN 81 MG ENTERIC TAB PO (09:02)
[2018-05-21] MEDS: amLODIPine 10 MG TAB PO (09:02)
[2018-05-21] MEDS: ATORVASTATIN 20 MG TAB PO (20:55)
[2018-05-21] MEDS: FINASTERIDE 5 MG TAB PO (20:55)
[2018-05-21] MEDS: TAMSULOSIN 0.4 MG CAP PO (20:56)
[2018-05-21] MEDS: zolPIDEM TARTRATE 5 MG TAB PO (21:00)
[2018-05-22] MEDS: traMADol 50 MG TAB PO ×2 (05:07→18:14)
[2018-05-22] MEDS: ACETAMINOPHEN 500 MG TAB PO ×3 (06:27→18:13)
[2018-05-22] MEDS: HEPARIN SOD (PORCINE) 5000 UNITS/ML VIAL SC ×2 (08:39→21:16)
[2018-05-22] MEDS: SENOKOT S TAB PO ×2 (08:39→21:15)
[2018-05-22] MEDS: MIRALAX *UNIT DOSE* 17GM PACKET PO (08:39)
[2018-05-22] MEDS: metFORMIN (GLUCOPHAGE) 500 MG TAB PO ×2 (08:40→18:14)
[2018-05-22] MEDS: amLODIPine 10 MG TAB PO (08:40)
[2018-05-22] MEDS: FOLIC ACID 1 MG TAB PO (08:40)
[2018-05-22] MEDS: ASPIRIN 81 MG ENTERIC TAB PO (08:40)
[2018-05-22] MEDS: OMEGA-3 1050MG CAPSULE PO (08:40)
[2018-05-22] MEDS: HYDROCORTISONE 1% CREAM 30 GM TOP ×2 (08:40→21:16)
[2018-05-22] MEDS: DICLOFENAC EPOLAMINE 1.3 % PATCH TOP ×2 (08:41→21:16)
[2018-05-22] MEDS: BISACODYL 5 MG TAB PO (18:13)
[2018-05-22] MEDS: TAMSULOSIN 0.4 MG CAP PO (21:15)
[2018-05-22] MEDS: zolPIDEM TARTRATE 5 MG TAB PO (21:15)
[2018-05-22] MEDS: FINASTERIDE 5 MG TAB PO (21:15)
[2018-05-22] MEDS: ATORVASTATIN 20 MG TAB PO (21:15)
[2018-05-23] MEDS: ACETAMINOPHEN 500 MG TAB PO ×3 (06:14→17:28)
[2018-05-23] MEDS: amLODIPine 10 MG TAB PO (09:47)
[2018-05-23] MEDS: metFORMIN (GLUCOPHAGE) 500 MG TAB PO ×2 (09:47→17:28)
[2018-05-23] MEDS: OMEGA-3 1050MG CAPSULE PO (09:48)
[2018-05-23] MEDS: HEPARIN SOD (PORCINE) 5000 UNITS/ML VIAL SC ×2 (09:48→21:02)
[2018-05-23] MEDS: MOM 30ML SUSPENSION UDC PO (09:48)
[2018-05-23] MEDS: MIRALAX *UNIT DOSE* 17GM PACKET PO (09:48)
[2018-05-23] MEDS: ASPIRIN 81 MG ENTERIC TAB PO (09:48)
[2018-05-23] MEDS: SENOKOT S TAB PO ×2 (09:48→21:02)
[2018-05-23] MEDS: FOLIC ACID 1 MG TAB PO (09:48)
[2018-05-23] MEDS: DICLOFENAC EPOLAMINE 1.3 % PATCH TOP ×2 (09:49→21:11)
[2018-05-23] MEDS: HYDROCORTISONE 1% CREAM 30 GM TOP ×2 (09:49→21:12)
[2018-05-23] MEDS: MAGNESIUM CITRATE 300 ML BTL PO (11:38)
[2018-05-23] MEDS: FINASTERIDE 5 MG TAB PO (21:02)
[2018-05-23] MEDS: ATORVASTATIN 20 MG TAB PO (21:02)
[2018-05-23] MEDS: TAMSULOSIN 0.4 MG CAP PO (21:02)
[2018-05-24] MEDS: ACETAMINOPHEN 500 MG TAB PO ×3 (06:02→18:02)
[2018-05-24] MEDS: MOM 30ML SUSPENSION UDC PO (08:37)
[2018-05-24] MEDS: OMEGA-3 1050MG CAPSULE PO (08:38)
[2018-05-24] MEDS: amLODIPine 10 MG TAB PO (08:38)
[2018-05-24] MEDS: DICLOFENAC EPOLAMINE 1.3 % PATCH TOP ×2 (08:38→20:52)
[2018-05-24] MEDS: SENOKOT S TAB PO ×2 (08:38→20:50)
[2018-05-24] MEDS: BISACODYL 5 MG TAB PO (08:38)
[2018-05-24] MEDS: HEPARIN SOD (PORCINE) 5000 UNITS/ML VIAL SC ×2 (08:38→20:51)
[2018-05-24] MEDS: ASPIRIN 81 MG ENTERIC TAB PO (08:38)
[2018-05-24] MEDS: MIRALAX *UNIT DOSE* 17GM PACKET PO (08:39)
[2018-05-24] MEDS: metFORMIN (GLUCOPHAGE) 500 MG TAB PO ×2 (08:39→18:02)
[2018-05-24] MEDS: HYDROCORTISONE 1% CREAM 30 GM TOP ×2 (08:39→20:51)
[2018-05-24] MEDS: FOLIC ACID 1 MG TAB PO (08:39)
[2018-05-24] MEDS: MAGNESIUM CITRATE 300 ML BTL PO (10:26)
[2018-05-24] MEDS: MECLIZINE 12.5 MG TAB PO (10:26)
[2018-05-24] MEDS: FINASTERIDE 5 MG TAB PO (20:50)
[2018-05-24] MEDS: ATORVASTATIN 20 MG TAB PO (20:50)
[2018-05-24] MEDS: TAMSULOSIN 0.4 MG CAP PO (20:50)
[2018-05-25] MEDS: ACETAMINOPHEN 500 MG TAB PO ×3 (06:08→17:53)
[2018-05-25] MEDS: DICLOFENAC EPOLAMINE 1.3 % PATCH TOP ×2 (08:33→20:57)
[2018-05-25] MEDS: HEPARIN SOD (PORCINE) 5000 UNITS/ML VIAL SC ×2 (08:34→20:56)
[2018-05-25] MEDS: ASPIRIN 81 MG ENTERIC TAB PO (08:34)
[2018-05-25] MEDS: SENOKOT S TAB PO ×2 (08:34→20:56)
[2018-05-25] MEDS: OMEGA-3 1050MG CAPSULE PO (08:34)
[2018-05-25] MEDS: HYDROCORTISONE 1% CREAM 30 GM TOP ×2 (08:34→20:57)
[2018-05-25] MEDS: MIRALAX *UNIT DOSE* 17GM PACKET PO (08:34)
[2018-05-25] MEDS: FOLIC ACID 1 MG TAB PO (08:34)
[2018-05-25] MEDS: amLODIPine 10 MG TAB PO (08:34)
[2018-05-25] MEDS: metFORMIN (GLUCOPHAGE) 500 MG TAB PO ×2 (08:34→17:53)
[2018-05-25] MEDS: FINASTERIDE 5 MG TAB PO (20:56)
[2018-05-25] MEDS: ATORVASTATIN 20 MG TAB PO (20:57)
[2018-05-25] MEDS: TAMSULOSIN 0.4 MG CAP PO (20:57)
[2018-05-26] MEDS: ACETAMINOPHEN 500 MG TAB PO ×3 (06:09→17:41)
[2018-05-26] MEDS: DICLOFENAC EPOLAMINE 1.3 % PATCH TOP ×2 (08:53→20:13)
[2018-05-26] MEDS: MIRALAX *UNIT DOSE* 17GM PACKET PO (08:53)
[2018-05-26] MEDS: metFORMIN (GLUCOPHAGE) 500 MG TAB PO ×2 (08:54→17:42)
[2018-05-26] MEDS: OMEGA-3 1050MG CAPSULE PO (08:54)
[2018-05-26] MEDS: ASPIRIN 81 MG ENTERIC TAB PO (08:54)
[2018-05-26] MEDS: SENOKOT S TAB PO ×2 (08:54→20:12)
[2018-05-26] MEDS: FOLIC ACID 1 MG TAB PO (08:54)
[2018-05-26] MEDS: amLODIPine 10 MG TAB PO (08:56)
[2018-05-26] MEDS: HEPARIN SOD (PORCINE) 5000 UNITS/ML VIAL SC ×2 (08:56→20:13)
[2018-05-26] MEDS: HYDROCORTISONE 1% CREAM 30 GM TOP ×2 (08:59→20:14)
[2018-05-26] MEDS: FINASTERIDE 5 MG TAB PO (20:12)
[2018-05-26] MEDS: TAMSULOSIN 0.4 MG CAP PO (20:12)
[2018-05-26] MEDS: ATORVASTATIN 20 MG TAB PO (20:12)
[2018-05-27] MEDS: SENOKOT S TAB PO ×2 (10:42→20:56)
[2018-05-27] MEDS: ASPIRIN 81 MG ENTERIC TAB PO (10:43)
[2018-05-27] MEDS: HEPARIN SOD (PORCINE) 5000 UNITS/ML VIAL SC ×2 (10:43→20:55)
[2018-05-27] MEDS: amLODIPine 5 MG TAB PO (10:43)
[2018-05-27] MEDS: OMEGA-3 1050MG CAPSULE PO (10:43)
[2018-05-27] MEDS: metFORMIN (GLUCOPHAGE) 500 MG TAB PO ×2 (10:43→18:25)
[2018-05-27] MEDS: MIRALAX *UNIT DOSE* 17GM PACKET PO (10:44)
[2018-05-27] MEDS: FOLIC ACID 1 MG TAB PO (10:44)
[2018-05-27] MEDS: HYDROCORTISONE 1% CREAM 30 GM TOP ×2 (10:44→20:57)
[2018-05-27] MEDS: DICLOFENAC EPOLAMINE 1.3 % PATCH TOP ×2 (10:44→20:56)
[2018-05-27] MEDS: ATORVASTATIN 20 MG TAB PO (20:55)
[2018-05-27] MEDS: FINASTERIDE 5 MG TAB PO (20:55)
[2018-05-27] MEDS: TAMSULOSIN 0.4 MG CAP PO (20:56)
[2018-05-28] MEDS: SENOKOT S TAB PO ×2 (09:48→20:12)
[2018-05-28] MEDS: OMEGA-3 1050MG CAPSULE PO (09:48)
[2018-05-28] MEDS: HEPARIN SOD (PORCINE) 5000 UNITS/ML VIAL SC ×2 (09:48→20:13)
[2018-05-28] MEDS: MIRALAX *UNIT DOSE* 17GM PACKET PO (09:48)
[2018-05-28] MEDS: ASPIRIN 81 MG ENTERIC TAB PO (09:49)
[2018-05-28] MEDS: metFORMIN (GLUCOPHAGE) 500 MG TAB PO ×2 (09:49→18:23)
[2018-05-28] MEDS: FOLIC ACID 1 MG TAB PO (09:49)
[2018-05-28] MEDS: DICLOFENAC EPOLAMINE 1.3 % PATCH TOP ×2 (09:50→20:13)
[2018-05-28] MEDS: amLODIPine 5 MG TAB PO (09:50)
[2018-05-28] MEDS: HYDROCORTISONE 1% CREAM 30 GM TOP ×2 (09:51→20:14)
[2018-05-28] MEDS: ATORVASTATIN 20 MG TAB PO (20:12)
[2018-05-28] MEDS: FINASTERIDE 5 MG TAB PO (20:12)
[2018-05-28] MEDS: TAMSULOSIN 0.4 MG CAP PO (20:12)
[2018-05-29] MEDS: HYDROCORTISONE 1% CREAM 30 GM TOP ×2 (09:00→21:17)
[2018-05-29] MEDS: amLODIPine 5 MG TAB PO (10:14)
[2018-05-29] MEDS: OMEGA-3 1050MG CAPSULE PO (10:14)
[2018-05-29] MEDS: metFORMIN (GLUCOPHAGE) 500 MG TAB PO ×2 (10:14→17:42)
[2018-05-29] MEDS: ASPIRIN 81 MG ENTERIC TAB PO (10:14)
[2018-05-29] MEDS: MIRALAX *UNIT DOSE* 17GM PACKET PO (10:14)
[2018-05-29] MEDS: FOLIC ACID 1 MG TAB PO (10:15)
[2018-05-29] MEDS: HEPARIN SOD (PORCINE) 5000 UNITS/ML VIAL SC ×2 (10:15→21:16)
[2018-05-29] MEDS: SENOKOT S TAB PO ×2 (10:15→21:15)
[2018-05-29] MEDS: BISACODYL 5 MG TAB PO (10:18)
[2018-05-29] MEDS: DICLOFENAC EPOLAMINE 1.3 % PATCH TOP ×2 (10:23→21:16)
[2018-05-29] MEDS: FINASTERIDE 5 MG TAB PO (21:15)
[2018-05-29] MEDS: ATORVASTATIN 20 MG TAB PO (21:15)
[2018-05-29] MEDS: TAMSULOSIN 0.4 MG CAP PO (21:15)
[2018-05-30] MEDS: OMEGA-3 1050MG CAPSULE PO (08:23)
[2018-05-30] MEDS: FOLIC ACID 1 MG TAB PO (08:23)
[2018-05-30] MEDS: metFORMIN (GLUCOPHAGE) 500 MG TAB PO (08:23)
[2018-05-30] MEDS: HYDROCORTISONE 1% CREAM 30 GM TOP (08:25)
[2018-05-30] MEDS: DICLOFENAC EPOLAMINE 1.3 % PATCH TOP (08:25)
[2018-05-30] MEDS: ASPIRIN 81 MG ENTERIC TAB PO (08:25)
[2018-05-30] MEDS: SENOKOT S TAB PO (08:25)
[2018-05-30] MEDS: HEPARIN SOD (PORCINE) 5000 UNITS/ML VIAL SC (08:25)
[2018-05-30] MEDS: amLODIPine 5 MG TAB PO (08:25)
[2018-05-30] MEDS: MIRALAX *UNIT DOSE* 17GM PACKET PO (09:00)
== END 2018-05-30 14:20 | disposition home health service (06) | DRG 948 ==
LOC: M PM&R 14:38
DX: R53.81 Other malaise (principal); M25.461 Effusion, right knee; M25.462 Effusion, left knee; M17.0 Bilateral primary osteoarthritis of knee; E11.9 Type 2 diabetes mellitus without complications; I10 Essential (primary) hypertension; E78.5 Hyperlipidemia, unspecified; R91.8 Other nonspecific abnormal finding of lung field; R32 Unspecified urinary incontinence; N40.1 Benign prostatic hyperplasia with lower urinary tract symptoms; G47.00 Insomnia, unspecified; K59.00 Constipation, unspecified; H91.93 Unspecified hearing loss, bilateral; Z79.82 Long term (current) use of aspirin; Z79.84 Long term (current) use of oral hypoglycemic drugs; Z79.899 Other long term (current) drug therapy; Z88.2 Allergy status to sulfonamides; Z97.4 Presence of external hearing-aid; Z98.1 Arthrodesis status

== ENCOUNTER → 2018-06-16 | Outpatient (REF) | payer MEDICARE, OTHER ==
[2018-06-16 19:57] LABS: APPEARANCE, URINE TURBID (CLEAR); BACTERIA, URINE AUTO 2+ (NEGATIVE); BILIRUBIN, URINE AUTO NEGATIVE (NEGATIVE); BLOOD, URINE BLOOD NEGATIVE (NEGATIVE); COLOR, URINE YELLOW (YELLOW); GLUCOSE, URINE (UA) AUTO NEGATIVE (NEGATIVE); KETONE, URINE AUTO NEGATIVE (NEGATIVE); LEUKOCYTE ESTERASE, URINE AUTO 3+ (NEGATIVE); MUCUS, URINE SMALL (NEGATIVE); NITRITE, URINE AUTO POSITIVE (NEGATIVE); PROTEIN, URINE AUTO 2+ mg/dL (NEGATIVE); RBC, URINE AUTO 15 /HPF (0-3); SPECIFIC GRAVITY URINE AUTO 1.013 (1.002-1.035); SQUAMOUS EPITHELIAL CELL UR AU 6 /HPF (0-6); UROBILINOGEN, URINE AUTO 0.2 mg/dL (0.0-2.0); WBC, URINE AUTO TNTC /HPF (0-3)
== END ==
LOC: M SMT 16:59
DX: R35.0 Frequency of micturition (principal)
CPT/HCPCS: 81001

== ENCOUNTER → 2018-06-27 | Outpatient (CLI) | payer MEDICARE, OTHER ==
[2018-06-27 16:55] LABS: BASO # 0.1 10^3/uL (0.0-0.2); BASO % 0.9 % (0.0-1.0); EOS # 0.2 10^3/uL (0.0-0.50); EOS % 2.8 % (0.0-3.0); HEMATOCRIT 38.2 % (42.0-52.0); HEMOGLOBIN 12.2 g/dl (13.5-17.5); IMMATURE GRANULOCYTE % 0.4 % (0-3.0); LYMPH # 1.8 10^3/uL (1.5-4.5); LYMPH % 25.8 % (24.0-44.0); MEAN CORPUSCULAR HEMOGLOBIN 29.8 pg (27.0-33.0); MEAN CORPUSCULAR HGB CONC 31.9 g/dl (32.0-36.5); MEAN CORPUSCULAR VOLUME 93.4 fl (80.0-96.0); MONO # 0.8 10^3/uL (0.0-0.8); MONO % 11.3 % (0.0-5.0); NEUTROPHILS % 58.8 % (36.0-66.0); PLATELET COUNT, AUTOMATED 321 10^3/uL (150-450); RED BLOOD COUNT 4.09 10^6/uL (4.30-6.10); WHITE BLOOD COUNT 6.8 10^3/uL (4.0-10.0)
[2018-06-27 17:06] LABS: ANION GAP 10 MEQ/L (8-16); BLOOD UREA NITROGEN 10 MG/DL (7-18); CALCIUM LEVEL 8.8 MG/DL (8.8-10.2); CARBON DIOXIDE LEVEL 29 MEQ/L (21-32); CHLORIDE LEVEL 104 MEQ/L (98-107); CREATININE FOR GFR 1.02 MG/DL (0.70-1.30); GLOMERULAR FILTRATION RATE > 60.0 (>35); GLUCOSE, FASTING 116 MG/DL (70-100); POTASSIUM SERUM 4.5 MEQ/L (3.5-5.1); SODIUM LEVEL 143 MEQ/L (136-145)
== END ==
LOC: M WUC 13:40
DX: I95.89 Other hypotension (principal); S20.211A Contusion of right front wall of thorax, initial encounter; X58.XXXA Exposure to other specified factors, initial encounter; Y92.89 Other specified places as the place of occurrence of the external cause; Y93.9 Activity, unspecified; Y99.9 Unspecified external cause status
CPT/HCPCS: 80048

== ENCOUNTER → 2018-07-07 | Outpatient (CLI) | payer MEDICARE, OTHER | LOC: M RAD 15:46 | DX: N39.0 Urinary tract infection, site not specified (principal); Z85.46 Personal history of malignant neoplasm of prostate; N40.1 Benign prostatic hyperplasia with lower urinary tract symptoms | CPT/HCPCS: 74176 ==

== ENCOUNTER → 2018-07-07 | Outpatient (REF) | payer MEDICARE, OTHER | LOC: M SMT 16:09 | DX: N39.0 Urinary tract infection, site not specified (principal) | CPT/HCPCS: 87186 ==

== ENCOUNTER 2018-07-15 11:13 | Outpatient (CLI) | payer MEDICARE, OTHER ==
[2018-07-15] MEDS: SODIUM CHLORIDE 0.9% INJ 10 ML SYR IV (11:20)
[2018-07-15] MEDS: CEFEPIME HCL 1 GM in D5W MINI-BAG PLUS 50 ML IV (11:21)
[2018-07-15] MEDS ORDERED: SODIUM CHLORIDE 0.9% INJ 10 ML SYR IV (18:00)
== END 2018-07-15 12:00 | disposition home or self-care (01) ==
LOC: M INFU 11:13 → M MSPAV 20:50
DX: N39.0 Urinary tract infection, site not specified (principal); Z79.899 Other long term (current) drug therapy; Z88.2 Allergy status to sulfonamides

== ENCOUNTER 2018-07-15 21:06 | Outpatient (CLI) | payer MEDICARE, OTHER ==
[2018-07-15] MEDS: SODIUM CHLORIDE 0.9% INJ 10 ML SYR IV (21:37)
[2018-07-15] MEDS: CEFEPIME HCL 1 GM in D5W MINI-BAG PLUS 50 ML IV (21:37)
[2018-07-16] MEDS ORDERED: SODIUM CHLORIDE 0.9% INJ 10 ML SYR IV (06:00)
== END 2018-07-15 22:24 | disposition home or self-care (01) ==
LOC: M OPCLIPED 21:06 → M MSPAV 21:06 → M OPCLIPED 22:24
DX: N39.0 Urinary tract infection, site not specified (principal); Z79.899 Other long term (current) drug therapy; Z88.2 Allergy status to sulfonamides
CPT/HCPCS: J0692

== ENCOUNTER → 2018-07-15 | Outpatient (CLI) | payer MEDICARE, OTHER | LOC: M RADPRO 09:44 | DX: N39.0 Urinary tract infection, site not specified (principal) | CPT/HCPCS: 36569 ==

== ENCOUNTER 2018-07-16 08:49 | Outpatient (CLI) | payer MEDICARE, OTHER ==
[2018-07-16] MEDS: CEFEPIME HCL 1 GM in D5W MINI-BAG PLUS 50 ML IV (09:40)
[2018-07-16] MEDS: SODIUM CHLORIDE 0.9% INJ 10 ML SYR IV (10:27)
[2018-07-16] MEDS ORDERED: CEFEPIME HCL 1 GM in D5W MINI-BAG PLUS 50 ML IV ×2 (12:00→21:00)
== END 2018-07-16 10:37 | disposition home or self-care (01) ==
LOC: M OPCLIPED 08:49 → M MSPAV 09:00 → M OPCLIPED 10:37
DX: N39.0 Urinary tract infection, site not specified (principal); Z79.899 Other long term (current) drug therapy; Z79.82 Long term (current) use of aspirin

== ENCOUNTER 2018-07-16 20:34 | Outpatient (CLI) | payer MEDICARE, OTHER ==
[2018-07-16] MEDS: SODIUM CHLORIDE 0.9% INJ 10 ML SYR IV (21:00)
[2018-07-16] MEDS: CEFEPIME HCL 1 GM in D5W MINI-BAG PLUS 50 ML IV (21:00)
[2018-07-17] MEDS ORDERED: SODIUM CHLORIDE 0.9% INJ 10 ML SYR IV (06:00)
== END 2018-07-16 21:45 | disposition home or self-care (01) ==
LOC: M OPCLI4PV 20:34 → M MSPAV 20:44 → M OPCLI4PV 21:45
DX: N39.0 Urinary tract infection, site not specified (principal); Z79.899 Other long term (current) drug therapy; Z79.82 Long term (current) use of aspirin
CPT/HCPCS: J0692

== ENCOUNTER 2018-07-17 08:48 | Outpatient (CLI) | payer MEDICARE, OTHER ==
[2018-07-17] MEDS: CEFEPIME HCL 1 GM in D5W MINI-BAG PLUS 50 ML IV (10:12)
[2018-07-17] MEDS ORDERED: SODIUM CHLORIDE 0.9% INJ 10 ML SYR IV (10:45)
[2018-07-17] MEDS: SODIUM CHLORIDE 0.9% INJ 10 ML SYR IV (11:02)
== END 2018-07-17 11:11 | disposition home or self-care (01) ==
LOC: M OPCLI4PV 08:48 → M MSPAV 08:56 → M OPCLI4PV 11:11
DX: N39.0 Urinary tract infection, site not specified (principal)

== ENCOUNTER 2018-07-17 20:37 | Outpatient (CLI) | payer MEDICARE, OTHER ==
[2018-07-17] MEDS: CEFEPIME HCL 1 GM in D5W MINI-BAG PLUS 50 ML IV (21:13)
[2018-07-17] MEDS: SODIUM CHLORIDE 0.9% INJ 10 ML SYR IV (21:14)
[2018-07-18] MEDS ORDERED: SODIUM CHLORIDE 0.9% INJ 10 ML SYR IV (06:00)
== END 2018-07-17 22:15 | disposition home or self-care (01) ==
LOC: M OPCLI4PV 20:37 → M MSPAV 20:45 → M OPCLI4PV 22:15
DX: N39.0 Urinary tract infection, site not specified (principal); Z79.899 Other long term (current) drug therapy; Z79.82 Long term (current) use of aspirin; Z79.84 Long term (current) use of oral hypoglycemic drugs; Z88.2 Allergy status to sulfonamides
CPT/HCPCS: J0692

== ENCOUNTER 2018-07-18 08:32 | Outpatient (CLI) | payer MEDICARE, OTHER ==
[2018-07-18] MEDS: CEFEPIME HCL 1 GM in D5W MINI-BAG PLUS 50 ML IV (09:22)
[2018-07-18] MEDS: SODIUM CHLORIDE 0.9% INJ 10 ML SYR IV (09:52)
[2018-07-18] MEDS ORDERED: SODIUM CHLORIDE 0.9% INJ 10 ML SYR IV (18:00)
== END 2018-07-18 10:10 | disposition home or self-care (01) ==
LOC: M INFU 08:32
DX: N39.0 Urinary tract infection, site not specified (principal); Z88.2 Allergy status to sulfonamides; Z79.82 Long term (current) use of aspirin; Z79.899 Other long term (current) drug therapy; Z79.84 Long term (current) use of oral hypoglycemic drugs

== ENCOUNTER 2018-07-18 20:31 | Outpatient (CLI) | payer MEDICARE, OTHER ==
[~2018-07-18 20:31] MED LIST: CEFEPIME HCL 1 GM in D5W MINI-BAG PLUS 50 ML IV; SODIUM CHLORIDE 0.9% INJ 10 ML SYR IV
[2018-07-18] MEDS: CEFEPIME HCL 1 GM in D5W MINI-BAG PLUS 50 ML IV (21:11)
[2018-07-18] MEDS: SODIUM CHLORIDE 0.9% INJ 10 ML SYR IV (21:13)
[2018-07-19] MEDS ORDERED: SODIUM CHLORIDE 0.9% INJ 10 ML SYR IV (06:00)
== END 2018-07-18 22:08 | disposition home or self-care (01) ==
LOC: M OPCLI4PV 20:31 → M MSPAV 20:37 → M OPCLI4PV 22:08
DX: N39.0 Urinary tract infection, site not specified (principal); Z88.2 Allergy status to sulfonamides; Z79.82 Long term (current) use of aspirin; Z79.899 Other long term (current) drug therapy; Z79.84 Long term (current) use of oral hypoglycemic drugs
CPT/HCPCS: J0692

== ENCOUNTER 2018-07-19 08:35 | Outpatient (CLI) | payer MEDICARE, OTHER ==
[2018-07-19] MEDS ORDERED: SODIUM CHLORIDE 0.9% INJ 10 ML SYR IV (09:00)
[2018-07-19] MEDS: CEFEPIME HCL 1 GM in D5W MINI-BAG PLUS 50 ML IV (09:05)
[2018-07-19] MEDS: SODIUM CHLORIDE 0.9% INJ 10 ML SYR IV (09:06)
== END 2018-07-19 09:45 | disposition home or self-care (01) ==
LOC: M INFU 08:35
DX: N39.0 Urinary tract infection, site not specified (principal)

== ENCOUNTER 2018-07-19 20:22 | Outpatient (CLI) | payer MEDICARE, OTHER ==
[2018-07-19] MEDS: CEFEPIME HCL 1 GM in D5W MINI-BAG PLUS 50 ML IV (21:00)
[2018-07-19] MEDS: SODIUM CHLORIDE 0.9% INJ 10 ML SYR IV (21:57)
[2018-07-20] MEDS ORDERED: SODIUM CHLORIDE 0.9% INJ 10 ML SYR IV (06:00)
== END 2018-07-19 22:01 | disposition home or self-care (01) ==
LOC: M OPCLI4PV 20:22 → M MSPAV 20:35 → M OPCLI4PV 22:01
DX: N39.0 Urinary tract infection, site not specified (principal); Z79.82 Long term (current) use of aspirin; Z79.84 Long term (current) use of oral hypoglycemic drugs; Z79.899 Other long term (current) drug therapy
CPT/HCPCS: J0692

== ENCOUNTER 2018-07-20 08:32 | Outpatient (CLI) | payer MEDICARE, OTHER ==
[2018-07-20] MEDS ORDERED: SODIUM CHLORIDE 0.9% INJ 10 ML SYR IV (08:45)
[2018-07-20] MEDS: CEFEPIME HCL 1 GM in D5W MINI-BAG PLUS 50 ML IV (08:54)
[2018-07-20] MEDS: SODIUM CHLORIDE 0.9% INJ 10 ML SYR IV (09:02)
== END 2018-07-20 09:40 | disposition home or self-care (01) ==
LOC: M INFU 08:32
DX: N39.0 Urinary tract infection, site not specified (principal); Z88.2 Allergy status to sulfonamides; Z79.82 Long term (current) use of aspirin; Z79.899 Other long term (current) drug therapy; Z79.84 Long term (current) use of oral hypoglycemic drugs

== ENCOUNTER 2018-07-20 20:30 | Outpatient (CLI) | payer MEDICARE, OTHER ==
[2018-07-20] MEDS: SODIUM CHLORIDE 0.9% INJ 10 ML SYR IV ×2 (21:16→21:47)
[2018-07-20] MEDS: CEFEPIME HCL 1 GM in D5W MINI-BAG PLUS 50 ML IV (21:16)
[2018-07-21] MEDS ORDERED: SODIUM CHLORIDE 0.9% INJ 10 ML SYR IV (06:00)
== END 2018-07-20 22:00 | disposition home or self-care (01) ==
LOC: M OPCLI4PV 20:30 → M MSPAV 20:34 → M OPCLI4PV 22:00
DX: N39.0 Urinary tract infection, site not specified (principal); Z88.2 Allergy status to sulfonamides; Z79.899 Other long term (current) drug therapy; Z79.82 Long term (current) use of aspirin; Z79.84 Long term (current) use of oral hypoglycemic drugs
CPT/HCPCS: J0692

== ENCOUNTER 2018-07-21 08:40 | Outpatient (CLI) | payer MEDICARE, OTHER ==
[2018-07-21] MEDS: CEFEPIME HCL 1 GM in D5W MINI-BAG PLUS 50 ML IV (09:05)
[2018-07-21] MEDS: SODIUM CHLORIDE 0.9% INJ 10 ML SYR IV ×2 (09:06→09:40)
[2018-07-21] MEDS ORDERED: SODIUM CHLORIDE 0.9% INJ 10 ML SYR IV (18:00)
== END 2018-07-21 09:45 | disposition home or self-care (01) ==
LOC: M INFU 08:40
DX: N39.0 Urinary tract infection, site not specified (principal); Z88.2 Allergy status to sulfonamides; Z79.899 Other long term (current) drug therapy; Z79.82 Long term (current) use of aspirin; Z79.84 Long term (current) use of oral hypoglycemic drugs

== ENCOUNTER 2018-07-21 20:37 | Outpatient (CLI) | payer MEDICARE, OTHER ==
[2018-07-21] MEDS: CEFEPIME HCL 1 GM in D5W MINI-BAG PLUS 50 ML IV (21:20)
[2018-07-21] MEDS: SODIUM CHLORIDE 0.9% INJ 10 ML SYR IV ×2 (21:20→22:06)
[2018-07-22] MEDS ORDERED: SODIUM CHLORIDE 0.9% INJ 10 ML SYR IV (06:00)
== END 2018-07-21 22:11 | disposition home or self-care (01) ==
LOC: M OPCLI4PV 20:37 → M MSPAV 20:40 → M OPCLI4PV 22:11
DX: N39.0 Urinary tract infection, site not specified (principal); Z88.2 Allergy status to sulfonamides; Z79.82 Long term (current) use of aspirin; Z79.899 Other long term (current) drug therapy; Z79.84 Long term (current) use of oral hypoglycemic drugs
CPT/HCPCS: J0692

== ENCOUNTER 2018-07-22 08:33 | Outpatient (CLI) | payer MEDICARE, OTHER ==
[~2018-07-22 08:33] MED LIST changes: -CEFEPIME HCL 1 GM in D5W MINI-BAG PLUS 50 ML IV
[2018-07-22] MEDS: CEFEPIME HCL 1 GM in D5W MINI-BAG PLUS 50 ML IV (08:42)
[2018-07-22] MEDS: SODIUM CHLORIDE 0.9% INJ 10 ML SYR IV (08:43)
== END 2018-07-22 09:35 | disposition home or self-care (01) ==
LOC: M INFU 08:33
DX: N39.0 Urinary tract infection, site not specified (principal); Z88.2 Allergy status to sulfonamides; Z79.899 Other long term (current) drug therapy; Z79.82 Long term (current) use of aspirin; Z79.84 Long term (current) use of oral hypoglycemic drugs
CPT/HCPCS: J0692

== ENCOUNTER 2018-07-22 20:36 | Outpatient (CLI) | payer MEDICARE, OTHER ==
[2018-07-22] MEDS: SODIUM CHLORIDE 0.9% INJ 10 ML SYR IV ×2 (21:00→22:04)
[2018-07-22] MEDS: CEFEPIME HCL 1 GM in D5W MINI-BAG PLUS 50 ML IV (21:00)
[2018-07-23] MEDS ORDERED: SODIUM CHLORIDE 0.9% INJ 10 ML SYR IV (06:00)
== END 2018-07-22 22:08 | disposition home or self-care (01) ==
LOC: M OPCLI4PV 20:36 → M MSPAV 20:39
DX: N39.0 Urinary tract infection, site not specified (principal)

== ENCOUNTER 2018-07-23 08:50 | Outpatient (CLI) | payer MEDICARE, OTHER ==
[2018-07-23] MEDS: CEFEPIME HCL 1 GM in D5W MINI-BAG PLUS 50 ML IV (09:30)
[2018-07-23] MEDS: SODIUM CHLORIDE 0.9% INJ 10 ML SYR IV (09:51)
== END 2018-07-23 22:15 | disposition home or self-care (01) ==
LOC: M OPCLI4PV 08:50 → M MSPAV 08:55 → M OPCLI4PV 11:20
DX: N39.0 Urinary tract infection, site not specified (principal); C61 Malignant neoplasm of prostate; Z79.899 Other long term (current) drug therapy; Z79.82 Long term (current) use of aspirin; Z79.84 Long term (current) use of oral hypoglycemic drugs; Z88.2 Allergy status to sulfonamides

== ENCOUNTER 2018-07-23 20:30 | Outpatient (CLI) | payer MEDICARE, OTHER ==
[2018-07-23] MEDS ORDERED: SODIUM CHLORIDE 0.9% INJ 10 ML SYR IV (21:00)
[2018-07-23] MEDS: CEFEPIME HCL 1 GM in D5W MINI-BAG PLUS 50 ML IV (21:34)
[2018-07-23] MEDS: SODIUM CHLORIDE 0.9% INJ 10 ML SYR IV (22:09)
== END 2018-07-23 22:15 ==
LOC: M OPCLI4PV 22:15 → M MSPAV 20:45
DX: N39.0 Urinary tract infection, site not specified (principal); C61 Malignant neoplasm of prostate; Z88.2 Allergy status to sulfonamides; Z79.899 Other long term (current) drug therapy; Z79.82 Long term (current) use of aspirin; Z79.84 Long term (current) use of oral hypoglycemic drugs
CPT/HCPCS: J0692

== ENCOUNTER 2018-07-24 08:35 | Outpatient (CLI) | payer MEDICARE, OTHER ==
[2018-07-24] MEDS ORDERED: SODIUM CHLORIDE 0.9% INJ 10 ML SYR IV (09:00)
[2018-07-24] MEDS: CEFEPIME HCL 1 GM in D5W MINI-BAG PLUS 50 ML IV (09:21)
== END 2018-07-24 10:10 | disposition home or self-care (01) ==
LOC: M OPCLI4PV 08:35 → M MSPAV 08:44 → M OPCLI4PV 10:10
DX: N39.0 Urinary tract infection, site not specified (principal)

== ENCOUNTER 2018-07-24 20:33 | Outpatient (CLI) | payer MEDICARE, OTHER ==
[2018-07-24] MEDS ORDERED: SODIUM CHLORIDE 0.9% INJ 10 ML SYR IV (21:15)
[2018-07-24] MEDS: CEFEPIME HCL 1 GM in D5W MINI-BAG PLUS 50 ML IV (21:38)
[2018-07-24] MEDS: SODIUM CHLORIDE 0.9% INJ 10 ML SYR IV (21:39)
== END 2018-07-24 22:15 | disposition home or self-care (01) ==
LOC: M OPCLI4PV 20:33 → M MSPAV 21:10
DX: N39.0 Urinary tract infection, site not specified (principal); C61 Malignant neoplasm of prostate; Z79.899 Other long term (current) drug therapy; Z79.82 Long term (current) use of aspirin; Z79.84 Long term (current) use of oral hypoglycemic drugs; Z88.2 Allergy status to sulfonamides
CPT/HCPCS: J0692

== ENCOUNTER → 2018-08-08 | Outpatient (REF) | payer MEDICARE, OTHER | LOC: M SMT 17:12 | DX: N39.0 Urinary tract infection, site not specified (principal) | CPT/HCPCS: 88108 ==

== ENCOUNTER → 2018-08-22 | Outpatient (CLI) | payer MEDICARE, OTHER ==
[2018-08-22 14:34] LABS: PROSTATIC SPECIFIC AG MONITOR < 0.01 NG/ML (< 4.0)
== END ==
LOC: M SMT 10:25
DX: N39.0 Urinary tract infection, site not specified (principal); Z85.46 Personal history of malignant neoplasm of prostate; N40.1 Benign prostatic hyperplasia with lower urinary tract symptoms
CPT/HCPCS: 84153

== ENCOUNTER → 2018-08-23 | Outpatient (REF) | payer MEDICARE, OTHER ==
[2018-08-23 19:03] LABS: APPEARANCE, URINE HAZY (CLEAR); BACTERIA, URINE AUTO 1+ (NEGATIVE); BILIRUBIN, URINE AUTO NEGATIVE (NEGATIVE); BLOOD, URINE BLOOD NEGATIVE (NEGATIVE); COLOR, URINE YELLOW (YELLOW); GLUCOSE, URINE (UA) AUTO 1+ mg/dL (NEGATIVE); KETONE, URINE AUTO NEGATIVE (NEGATIVE); LEUKOCYTE ESTERASE, URINE AUTO 3+ (NEGATIVE); MUCUS, URINE SMALL (NEGATIVE); NITRITE, URINE AUTO NEGATIVE (NEGATIVE); PROTEIN, URINE AUTO NEGATIVE (NEGATIVE); RBC, URINE AUTO 1 /HPF (0-3); SPECIFIC GRAVITY URINE AUTO 1.013 (1.002-1.035); SQUAMOUS EPITHELIAL CELL UR AU 0 /HPF (0-6); UROBILINOGEN, URINE AUTO 0.2 mg/dL (0.0-2.0); WBC, URINE AUTO 75 /HPF (0-3)
== END ==
LOC: M SMT 17:14
DX: N39.0 Urinary tract infection, site not specified (principal)
CPT/HCPCS: 81001

== ENCOUNTER → 2018-08-29 | Outpatient (REF) | payer MEDICARE, OTHER ==
[2018-08-29 18:50] LABS: APPEARANCE, URINE CLEAR (CLEAR); BACTERIA, URINE AUTO NEGATIVE (NEGATIVE); BILIRUBIN, URINE AUTO NEGATIVE (NEGATIVE); BLOOD, URINE BLOOD NEGATIVE (NEGATIVE); COLOR, URINE YELLOW (YELLOW); GLUCOSE, URINE (UA) AUTO NEGATIVE (NEGATIVE); KETONE, URINE AUTO NEGATIVE (NEGATIVE); LEUKOCYTE ESTERASE, URINE AUTO NEGATIVE (NEGATIVE); NITRITE, URINE AUTO NEGATIVE (NEGATIVE); PROTEIN, URINE AUTO NEGATIVE (NEGATIVE); RBC, URINE AUTO 0 /HPF (0-3); SPECIFIC GRAVITY URINE AUTO 1.009 (1.002-1.035); SQUAMOUS EPITHELIAL CELL UR AU 0 /HPF (0-6); UROBILINOGEN, URINE AUTO 0.2 mg/dL (0.0-2.0); WBC, URINE AUTO 8 /HPF (0-3)
== END ==
LOC: M SMT 17:13
DX: N39.0 Urinary tract infection, site not specified (principal)
CPT/HCPCS: 81001

== ENCOUNTER → 2018-12-01 | Outpatient (REF) | payer MEDICARE, OTHER ==
[~2018-12-01] MED LIST changes: +AMLO5TAB6 PO; +ASPI81TAEC PO; +ATOR40TA75 PO; +BISA10SU PR; +BISAC5TA PO; +CINN500C9 PO; +CINN500T PO; +CIPR500T3; +CIPR500T3 PO; +DICL13PA TOP; +ECOT81TA5 PO; +FINA5TAB2; +FINA5TAB2 PO; +FLOM0.4C39 PO; +FOLI1TAB11; +FOLI1TAB11 PO; +MAPA500T2 PO; +METF500T13 PO; +MILK120011 PO; +OMEG100011 PO; +PEG1POW PO; +SENN1TAB2 PO; -SODIUM CHLORIDE 0.9% INJ 10 ML SYR IV; +TAMSULOSIN PO; +TRAM50TA2 PO
[2018-12-01 19:44] LABS: APPEARANCE, URINE MANUAL HAZY (CLEAR); COLOR, URINE MANUAL YELLOW (YELLOW)
[2018-12-01 19:45] LABS: BILIRUBIN, URINE MANUAL NEGATIVE (NEGATIVE); BLOOD URINE MANUAL POSITIVE (NEGATIVE); GLUCOSE, URINE (UA) MANUAL TRACE(50 MG/DL) mg/dL (NEGATIVE); KETONE, URINE MANUAL NEGATIVE (NEGATIVE); LEUKOCYTE ESTERASE, URINE MAN POSITIVE (NEGATIVE); NITRITE, URINE MANUAL NEGATIVE (NEGATIVE); PROTEIN, URINE MANUAL 3+ mg/dL (NEGATIVE); UROBILINOGEN, URINE MANUAL NORMAL (NORMAL); WBC, URINE TNTC /hpf (0-3)
[2018-12-01 19:46] LABS: BACTERIA, URINE SMALL AMOUNT; HYALINE CAST, URINE NONE SEEN /lpf (0-1); SQUAMOUS EPITHELIAL CELL URINE NONE SEEN /hpf (SMALL AMT); WHITE BLOOD CELL CAST, URINE 0-1 /lpf
== END ==
LOC: M SMT 18:09
PROVIDERS: ATTEND Nurse Practitioner Women's Health
DX: N28.89 Other specified disorders of kidney and ureter (principal)

== ENCOUNTER → 2019-01-26 | Outpatient (REF) | payer MEDICARE, OTHER | LOC: M SMT 16:55 | PROVIDERS: ATTEND Nurse Practitioner Women's Health | DX: N28.89 Other specified disorders of kidney and ureter (principal) ==

== ENCOUNTER → 2019-02-23 | Outpatient (REF) | payer MEDICARE, OTHER ==
[~2019-02-23] MED LIST changes: -SENN1TAB2 PO; +SENN1TAB40 PO
== END ==
LOC: M SMT 12:59
PROVIDERS: ATTEND Nurse Practitioner Women's Health
DX: N39.0 Urinary tract infection, site not specified (principal)

== ENCOUNTER 2019-05-30 17:37 | Inpatient (IN) | payer MEDICARE, OTHER ==
[~2019-05-30] VITALS: Ht 188 cm; Wt 91.4 kg
[2019-05-30] MEDS ORDERED: CEFEPIME HCL 2 GM in D5W MINI-BAG PLUS 50 ML IV ONE (18:30)
[2019-05-30 18:49] LABS: BASO # 0.1 10^3/uL (0.0-0.2); BASO % 1.2 % (0.0-1.0); EOS # 0.3 10^3/uL (0.0-0.50); HEMATOCRIT 41.7 % (42.0-52.0); HEMOGLOBIN 13.6 g/dl (13.5-17.5); LYMPH # 2.2 10^3/uL (1.5-4.5); LYMPH % 32.3 % (24.0-44.0); MEAN CORPUSCULAR HEMOGLOBIN 31.1 pg (27.0-33.0); MEAN CORPUSCULAR HGB CONC 32.6 g/dl (32.0-36.5); MEAN CORPUSCULAR VOLUME 95.4 fl (80.0-96.0); MONO # 0.7 10^3/uL (0.0-0.8); MONO % 9.8 % (0.0-5.0); NEUTROPHILS # 3.6 10^3/uL (1.8-7.7); NEUTROPHILS % 52.1 % (36.0-66.0); PLATELET COUNT, AUTOMATED 265 10^3/uL (150-450); RED BLOOD COUNT 4.37 10^6/uL (4.30-6.10); WHITE BLOOD COUNT 6.9 10^3/uL (4.0-10.0)
[2019-05-30] MEDS ORDERED: CINN500C12 PO (18:54)
[2019-05-30] MEDS ORDERED: METF500T13 PO (18:54)
[2019-05-30] MEDS ORDERED: RAPA8CAP4 PO (18:54)
[2019-05-30] MEDS ORDERED: VITMTA PO (18:54)
[2019-05-30] MEDS ORDERED: BAYE325T13 PO (18:54)
[2019-05-30] MEDS ORDERED: VITA100014 PO (18:54)
[2019-05-30] MEDS ORDERED: ASCO500T PO (18:54)
[2019-05-30] MEDS ORDERED: IBUP200T45 PO (18:55)
[2019-05-30] MEDS ORDERED: NEOSOI EXT (18:56)
[2019-05-30 19:29] LABS: ALBUMIN 3.5 GM/DL (3.2-5.2); ALT/SGPT 15 U/L (12-78); BILIRUBIN,DIRECT 0.1 MG/DL (0.0-0.2); BILIRUBIN,TOTAL 0.6 MG/DL (0.2-1.0); BLOOD UREA NITROGEN 16 MG/DL (7-18); CARBON DIOXIDE LEVEL 28 MEQ/L (21-32); CHLORIDE LEVEL 106 MEQ/L (98-107); GLOMERULAR FILTRATION RATE > 60.0 (>35); GLUCOSE, FASTING 87 MG/DL (70-100); SODIUM LEVEL 140 MEQ/L (136-145)
[2019-05-30] MEDS ORDERED: MAALOX 30 ML SUSP *UDC PO PRN (19:30)
[2019-05-30] MEDS ORDERED: ACETAMINOPHEN TAB 650MG DOSE (2X325MG) PO PRN (19:30)
[2019-05-30] MEDS ORDERED: MOM 30ML SUSPENSION UDC PO PRN (19:30)
[2019-05-30] MEDS ORDERED: GLUCAGON FOR INJ 1 MG VIAL (J1610) SC PRN (19:45)
[2019-05-30] MEDS ORDERED: GLUCOSE 4 GM CHEW TABLET PO PRN (19:45)
[2019-05-30] MEDS ORDERED: DEXTROSE 50% 50 ML SYRINGE IV PRN (19:45)
[2019-05-30] MEDS: HumaLOG INSULIN (NovoLOG) PER UNIT SC SCH (21:00)
[2019-05-30] MEDS: DOCUSATE SODIUM 100 MG CAP PO SCH (21:00)
[2019-05-30 21:05] LABS: APPEARANCE, URINE TURBID (CLEAR); BACTERIA, URINE AUTO NEGATIVE (NEGATIVE); BILIRUBIN, URINE AUTO NEGATIVE (NEGATIVE); BLOOD, URINE BLOOD 1+ (NEGATIVE); COLOR, URINE AMBER (YELLOW); GLUCOSE, URINE (UA) AUTO NEGATIVE (NEGATIVE); KETONE, URINE AUTO NEGATIVE (NEGATIVE); LEUKOCYTE ESTERASE, URINE AUTO 3+ (NEGATIVE); MUCUS, URINE SMALL (NEGATIVE); NITRITE, URINE AUTO NEGATIVE (NEGATIVE); PROTEIN, URINE AUTO 1+ mg/dL (NEGATIVE); RBC, URINE AUTO 36 /HPF (0-3); RENAL EPITHELIAL CELLS 1 /HPF; SQUAMOUS EPITHELIAL CELL UR AU 0 /HPF (0-6); UROBILINOGEN, URINE AUTO 0.2 mg/dL (0.0-2.0); WBC, URINE AUTO TNTC /HPF (0-3)
[2019-05-30 21:20] VITALS: BP 180/100
[2019-05-30] MEDS ORDERED: IBUPROFEN 200 MG TAB PO PRN (21:45)
[2019-05-30] MEDS ORDERED: **hydrALAZINE** 10 MG TAB PO PRN (21:45)
[2019-05-30] MEDS: PHENAZOPYRIDINE 100 MG TAB PO SCH (22:25)
[2019-05-30] MEDS: NEOSPORIN TOP OINT 15GM TOP SCH (22:25)
[2019-05-31 00:10] VITALS: BP 175/109
[2019-05-31] MEDS: CEFEPIME HCL 2 GM in D5W MINI-BAG PLUS 50 ML IV SCH ×3 (03:21→18:09)
[2019-05-31 03:30] VITALS: BP 163/114
[2019-05-31] MEDS ORDERED: METOPROLOL TART 12.5 MG PER 1/2 TAB PO ONE (05:00)
[2019-05-31 05:10] VITALS: BP 157/112
--- NOTE | 2019-05-31 05:34 | HPEPDOC ---
General Date of Admission 05/30/19 Date of Service: May 30, 2019 Primary Care Physician: Jr Hooks Collins Attending Physician: GRISELDA PAINTER DO Chief Complaint The patient is a 84-year-old male admitted with a reason for visit of Urinary Symptoms. Source: Patient Exam Limitations: No limitations Timing/Duration: Week(s), Getting worse Severity: Moderate Associated Symptoms: Other (dysuria, urgency, hesitency) History of Present Illness 84 yo male with history of urinary retention, present with increasing dysuria over the past 6 months and worsening urinary incontinence. Patient is followed by urology - Dr Domenico Chavez and states that wymna cath first placed in Sep 2018 because of urine retention, then 1 week ago cathetar removed because of pain at the tip of penis. He states he was told the dysuria was due to penile irritation from prior foleyFriday he had repeat urine culture and notified today that he had psueodomonas . Patient sent for ID consult and Dr Mao sent over for ER evaluation and admission for IV Cefepime and PICC line.. Patient is adamantly refusing wyman, post void residual bladder scan or straight cath. Patient states no fever, no back pain. normal stool this AM without difficulty. Home Medications Scheduled Ascorbic Acid (Ascorbic Acid) 500 Mg Tablet, 500 MG PO DAILY, (Reported) Aspirin (Aspirin) 325 Mg Tablet, 325 MG PO DAILY, (Reported) Atorvastatin Calcium (Atorvastatin Calcium) 40 Mg Tab, 40 MG PO DAILY, (Reported) Cinnamon Bark (Cinnamon) 500 Mg Capsule, 500 MG PO QPM, (Reported) Cyanocobalamin (Vitamin B-12) (Vitamin B-12) 1,000 Mcg Tablet, 1,000 MCG PO DAILY, (Reported) Finasteride (Finasteride) 5 Mg Tab, 5 MG PO DAILY, (Reported) Folic Acid (Folic Acid) 1 Mg Tab, 1 MG PO DAILY, (Reported) Metformin HCl (Metformin HCl) 500 Mg Tab, 500 MG PO QAM, (Reported) Metformin HCl (Metformin HCl) 500 Mg Tablet, 1,000 MG PO QPM, (Reported) Multivitamins (Thera M Plus Tablet) 1 Each Tablet, 1 TAB PO DAILY, (Reported) [place]-3 Fatty Acids/Fish Oil ([place] 3 1,000 mg Softgel) 1 Cap Cap, 1 CAP PO DAILY, (Reported) Silodosin (Rapaflo) 8 Mg Capsule, 8 MG PO DAILY, (Reported) Scheduled PRN Ibuprofen (Ibu-200) 200 Mg Tablet, 200 MG PO Q4H PRN for PAIN, (Reported) Neomycin/Bacitracin/Polymyxinb (Triple Antibiotic Ointment) 1 Each Oint.pack, 1 APLCT EXT DAILY PRN for URINARY CATHETER IRRITATION, (Reported) Allergies Coded Allergies: Sulfa (Sulfonamide Antibiotics) (Verified Allergy, Severe, MOUTH SWELLING, 05/30/19) ciprofloxacin (Verified Allergy, Severe, JOINT PAIN/SWELLING, 05/30/19) Past Medical History Medical History HTN BPH NIDDM Hyperlipidemia PSHX: Cervical spinal fusion Left trigger finger repair Family History: Mother/father from "heart problems" Social History: no tobacco use, occasional glass wine with dinner A-FIB/CHADSVASC A-FIB History Current/History of A-Fib/PAF?: No Current PO Anticoag Therapy: No Review of Systems Other systems 10 comprehensive systems reviewed and negative except as per HPI Physical Examination General Exam: Positive: Alert, Cooperative, Mild Distress Eye Exam: Positive: PERRLA, Conjunctiva & lids normal, EOMI ENT Exam: Positive: Atraumatic, Mucous membr. moist/pink, Pharynx Normal Neck Exam: Positive: Supple, +2 carotid pulse wo bruit Chest Exam: Positive: Clear to auscultation, Normal air movement; Negative: Rales, Rhonchi, Wheezing Heart Exam: Positive: Rate Normal, Regular Rhythm Abdomen Exam: Positive: Normal bowel sounds, Soft (NT ND, no CVA tenderness) Extremity Exam: Positive: Edema (trace ankle edema non pitting), Normal pulses; Negative: Clubbing, Cyanosis Skin Exam: Positive: Nl turgor and temperature Neuro Exam: Positive: Normal Gait (seen walking to and from ED restroom across the cameron), Normal Speech, Strength at 5/5 X4 ext, Normal Tone, Sensation Intact Psych Exam: Positive: Mental status NL, Mood NL, Oriented x 3 Other physical findings EXAM: uncircumsized male, tip of penis with mild irritation, no phimosis, no bleeding Vital Signs Vital Signs Date Time Temp Pulse Resp B/P (MAP) Pulse Ox O2 Delivery O2 Flow Rate FiO2 05/30/19 18:26 05/30/19 17:37 96.6 87 16 95 Room Air Laboratory Data Labs 24H Laboratory Tests 2 05/30/19 18:40: Immature Granulocyte % (Auto) 0.6, White Blood Count 6.9, Red Blood Count 4.37, Hemoglobin 13.6, Hematocrit 41.7L, Mean Corpuscular Volume 95.4, Mean Corpuscular Hemoglobin 31.1, Mean Corpuscular Hemoglobin Concent 32.6, Red Cell Distribution Width 13.0, Platelet Count 265, Neutrophils (%) (Auto) 52.1, Lymphocytes (%) (Auto) 32.3, Monocytes (%) (Auto) 9.8H, Eosinophils (%) (Auto) 4.0H, Basophils (%) (Auto) 1.2H, Neutrophils # (Auto) 3.6, Lymphocytes # (Auto) 2.2, Monocytes # (Auto) 0.7, Eosinophils # (Auto) 0.3, Basophils # (Auto) 0.1, Nucleated Red Blood Cells % (auto) 0.0, Anion Gap 6L, Glomerular Filtration Rate > 60.0, Calcium Level 9.0, Aspartate Amino Transf (AST/SGOT) 21, Alanine Aminotransferase (ALT/SGPT) 15, Alkaline Phosphatase 79, Total Bilirubin 0.6, Direct Bilirubin 0.1, Total Protein 7.0, Albumin 3.5, Albumin/Globulin Ratio 1.00 CBC/BMP Laboratory Tests 05/30/19 18:40 Red Blood Count 4.37, Mean Corpuscular Volume 95.4, Mean Corpuscular Hemoglobin 31.1, Mean Corpuscular Hemoglobin Concent 32.6, Red Cell Distribution Width 13.0, Neutrophils (%) (Auto) 52.1, Lymphocytes (%) (Auto) 32.3, Monocytes (%) (Auto) 9.8 H, Eosinophils (%) (Auto) 4.0 H, Basophils (%) (Auto) 1.2 H, Neutrophils # (Auto) 3.6, Lymphocytes # (Auto) 2.2, Monocytes # (Auto) 0.7, Eosinophils # (Auto) 0.3, Basophils # (Auto) 0.1 RAD Interpretation STUDY: no imaging performed Assessment/Plan OBSERVATION 1) Pseudomonas UTI Sent into hospital by Dr Mao who is currently out of town and recommended PICC line and IV cefepime based on urine culture from [facility]. Urine culture report requested prn pyridium Possible discharge after PICC line and home infusion/outpatient infusion [place] PFS consult 2) HTN - prn hydralazine and scheduled low dose metoprolol with hold parameters. Patient is on NSAID for pain and may need to be adjusted if Blood pressure elevated despite pain control 3) DM - continue SSI, hold oral agents CODE STATUS: FULL DVT PROPHYLAXIS: enoxaprin Plan / VTE VTE Prophylaxis Ordered?: Yes GRISELDA PAINTER DO May 30, 2019 19:32
[2019-05-31] MEDS: PHENAZOPYRIDINE 100 MG TAB PO SCH ×3 (06:43→21:07)
[2019-05-31 07:14] LABS: BLOOD UREA NITROGEN 15 MG/DL (7-18); CARBON DIOXIDE LEVEL 26 MEQ/L (21-32); CHLORIDE LEVEL 107 MEQ/L (98-107); CREATININE FOR GFR 1.02 MG/DL (0.70-1.30); GLOMERULAR FILTRATION RATE > 60.0 (>35); GLUCOSE, FASTING 120 MG/DL (70-100); POTASSIUM SERUM 3.8 MEQ/L (3.5-5.1); SODIUM LEVEL 140 MEQ/L (136-145)
[2019-05-31] MEDS: HumaLOG INSULIN (NovoLOG) PER UNIT SC SCH ×4 (07:30→20:06)
[2019-05-31] MEDS: FINASTERIDE 5 MG TAB PO SCH (08:05)
[2019-05-31] MEDS: FOLIC ACID 1 MG TAB PO SCH (08:05)
[2019-05-31] MEDS: ATORVASTATIN 20 MG TAB PO SCH (08:06)
[2019-05-31] MEDS: MULTIVITAMINS/MINERALS THERAP 1 TAB PO SCH (08:06)
[2019-05-31] MEDS: OMEGA-3 1000MG CAPSULE PO SCH (08:06)
[2019-05-31] MEDS: ASPIRIN 325 MG TAB PO SCH (08:07)
[2019-05-31] MEDS: METOPROLOL TART 12.5 MG PER 1/2 TAB PO SCH ×2 (08:07→20:07)
[2019-05-31] MEDS: ASCORBIC ACID 500 MG TAB PO SCH (08:07)
[2019-05-31] MEDS: TAMSULOSIN 0.4 MG CAP PO SCH (08:07)
[2019-05-31] MEDS: NEOSPORIN TOP OINT 15GM TOP SCH ×3 (08:08→20:08)
[2019-05-31] MEDS: DOCUSATE SODIUM 100 MG CAP PO SCH ×2 (08:08→20:08)
[2019-05-31 08:09] VITALS: BP 154/80
[2019-05-31] MEDS ORDERED: KETOROLAC 30 MG/ML VIAL (J1885) IV PRN (10:15)
[2019-05-31 10:43] LABS: HEMATOCRIT 40.4 % (42.0-52.0); HEMOGLOBIN 13.2 g/dl (13.5-17.5); MEAN CORPUSCULAR HEMOGLOBIN 31.1 pg (27.0-33.0); MEAN CORPUSCULAR HGB CONC 32.7 g/dl (32.0-36.5); MEAN CORPUSCULAR VOLUME 95.3 fl (80.0-96.0); PLATELET COUNT, AUTOMATED 265 10^3/uL (150-450); RED BLOOD COUNT 4.24 10^6/uL (4.30-6.10); WHITE BLOOD COUNT 7.4 10^3/uL (4.0-10.0)
[2019-05-31 13:00] VITALS: BP 129/75
[2019-05-31] MEDS ORDERED: LIDOCAINE 1% MDV 20ML VIAL As Ordered ONE (14:45)
[2019-05-31] MEDS ORDERED: SODIUM CHLORIDE 0.9% INJ 10 ML SYR IV PRN (15:45)
[2019-05-31] MEDS: SODIUM CHLORIDE 0.9% INJ 10 ML SYR IV SCH (18:09)
[2019-05-31 22:00] VITALS: BP 125/77
[2019-06-01] MEDS: CEFEPIME HCL 2 GM in D5W MINI-BAG PLUS 50 ML IV SCH ×3 (03:10→17:23)
[2019-06-01 06:00] VITALS: BP 125/82
[2019-06-01] MEDS: PHENAZOPYRIDINE 100 MG TAB PO SCH ×2 (06:04→15:19)
[2019-06-01] MEDS: SODIUM CHLORIDE 0.9% INJ 10 ML SYR IV SCH ×2 (06:04→17:24)
[2019-06-01 06:05] VITALS: BP 125/82
[2019-06-01] MEDS: HumaLOG INSULIN (NovoLOG) PER UNIT SC SCH ×4 (07:30→20:18)
[2019-06-01] MEDS: OMEGA-3 1000MG CAPSULE PO SCH (08:58)
[2019-06-01] MEDS: ASPIRIN 325 MG TAB PO SCH (08:58)
[2019-06-01] MEDS: FINASTERIDE 5 MG TAB PO SCH (08:58)
[2019-06-01] MEDS: METOPROLOL TART 12.5 MG PER 1/2 TAB PO SCH ×2 (08:58→20:17)
[2019-06-01] MEDS: TAMSULOSIN 0.4 MG CAP PO SCH (08:59)
[2019-06-01] MEDS: DOCUSATE SODIUM 100 MG CAP PO SCH ×2 (08:59→20:18)
[2019-06-01] MEDS: ASCORBIC ACID 500 MG TAB PO SCH (08:59)
[2019-06-01] MEDS: FOLIC ACID 1 MG TAB PO SCH (08:59)
[2019-06-01] MEDS: ATORVASTATIN 20 MG TAB PO SCH (08:59)
[2019-06-01] MEDS: MULTIVITAMINS/MINERALS THERAP 1 TAB PO SCH (08:59)
[2019-06-01] MEDS: NEOSPORIN TOP OINT 15GM TOP SCH ×3 (09:00→20:18)
[2019-06-01 14:00] VITALS: BP 133/74
--- NOTE | 2019-06-01 19:02 | IPNPDOC ---
Text Note Date of Service The patient was seen on 06/01/19. NOTE Pt was seen and examined at bedside. Pt is afebrile. Denies any tachypnea dyspnea. Pt is comfortable. No new complaints. PHE General Exam: Positive: Alert, Cooperative, Mild Distress Eye Exam: Positive: PERRLA, Conjunctiva & lids normal, EOMI ENT Exam: Positive: Atraumatic, Mucous membr. moist/pink, Pharynx Normal Neck Exam: Positive: Supple, +2 carotid pulse wo bruit Chest Exam: Positive: Clear to auscultation, Normal air movement; Negative: Rales, Rhonchi, Wheezing Heart Exam: Positive: Rate Normal, Regular Rhythm Abdomen Exam: Positive: Normal bowel sounds, Soft (NT ND, no CVA tenderness) Extremity Exam: Positive: Edema (trace ankle edema non pitting), Normal pulses; Negative: Clubbing, Cyanosis Skin Exam: Positive: Nl turgor and temperature Neuro Exam: Positive: Normal Gait (seen walking to and from ED restroom across the cameron), Normal Speech, Strength at 5/5 X4 ext, Normal Tone, Sensation Intact Psych Exam: Positive: Mental status NL, Mood NL, Oriented x 3 Other physical findings EXAM: uncircumsized male, tip of penis with mild irritation, no phimosis, no bleeding Vital Signs Date Time Temp Pulse Resp B/P (MAP) Pulse Ox O2 Delivery O2 Flow Rate FiO2 06/01/19 14:00 98.7 63 17 133/74 (93) 95 06/01/19 08:58 78 125/82 06/01/19 06:00 97.2 78 18 125/82 (96) 94 05/31/19 22:00 97.3 80 18 125/77 (93) 97 05/31/19 20:07 88 125/77 Intake & Output 06/01/19 06:00 Intake Total 1910 ml Output Total 1100 ml Balance 810 ml Laboratory Tests 05/31/19 20:06: Bedside Glucose (Misc Panel) 238H 06/01/19 06:07: Bedside Glucose (Misc Panel) 151H 06/01/19 11:54: Bedside Glucose (Misc Panel) 131H 06/01/19 16:47: Bedside Glucose (Misc Panel) 156H Microbiology 05/30/19 Urine Culture - Final, Complete Pseudomonas Aeruginosa Current Medications Medications (Trade) Dose Ordered Sig/Taqueria Route PRN Reason Start Time Stop Time Status Last Admin Dose Admin Acetaminophen (Tylenol Tab) 650 mg Q4H PRN PO PAIN OR FEVER 05/30/19 19:30 05/31/19 06:38 650 MG Ascorbic Acid (Vitamin C) 500 mg DAILY PO 05/31/19 09:00 06/01/19 08:59 500 MG Aspirin (Aspirin) 325 mg DAILY PO 05/31/19 09:00 06/01/19 08:58 325 MG Atorvastatin Calcium (Lipitor) 40 mg DAILY PO 05/31/19 09:00 06/01/19 08:59 40 MG Cefepime HCl 2 gm/ Dextrose 50 ml @ 100 mls/hr Q8H IV 05/31/19 03:00 06/01/19 17:23 100 MLS/HR Docusate Sodium (Colace) 100 mg BID PO 05/30/19 21:00 06/01/19 08:59 100 MG Finasteride (Proscar) 5 mg DAILY PO 05/31/19 09:00 06/01/19 08:58 5 MG Fish Oil ([place]-3 (1000mg)) 1 cap DAILY PO 05/31/19 09:00 06/01/19 08:58 1 CAP Folic Acid (Folic Acid) 1 mg DAILY PO 05/31/19 09:00 06/01/19 08:59 1 MG Heparin Sodium (Heparin (Flush)) 200 units PICC IV 05/31/19 18:00 06/01/19 17:24 200 UNITS Hydralazine HCl (Apresoline) 10 mg BID PRN PO SBP above 170 05/30/19 21:45 05/31/19 00:14 10 MG Metoprolol Tartrate (Lopressor) 12.5 mg BID PO 05/31/19 09:00 06/01/19 08:58 12.5 MG Multivitamins (Theragram-M) 1 tab DAILY PO 05/31/19 09:00 06/01/19 08:59 1 TAB Neomycin/ Polymyxin/ Bacitracin (Neosporin) 1 dose TID TOP 05/30/19 21:00 06/01/19 15:19 1 DOSE Phenazopyridine HCl (Pyridium) 200 mg Q8H PO 05/30/19 22:00 06/01/19 21:59 06/01/19 15:19 200 MG Sodium Chloride (Saline Lock Flush) 10 ML PICC IV 05/31/19 18:00 06/01/19 17:24 10 ML Tamsulosin HCl (Flomax) 0.8 mg DAILY PO 05/31/19 09:00 06/01/19 08:59 0.8 MG A/P 1-Complicated UTI sec to Pseudomonas referred into hospital by Dr Mao who is currently out of town and recommended PICC line and IV cefepime based on urine culture from [facility]. Urine culture report requested prn pyridium Possible discharge after PICC line and home infusion/outpatient infusion arrange d PFS consult 2-HTN - prn hydralazine and scheduled low dose metoprolol with hold parameters. Patient is on NSAID for pain and may need to be adjusted if Blood pressure elevated despite pain control 3-T2DM - continue SSI, hold oral agents CODE STATUS: FULL DVT PROPHYLAXIS: enoxaprin VS,Fishbone, I+O VS, Fishbone, I+O Vital Signs Date Time Temp Pulse Resp B/P (MAP) Pulse Ox O2 Delivery O2 Flow Rate FiO2 06/01/19 14:00 98.7 63 17 133/74 (93) 95 05/30/19 17:37 Room Air I&O- Last 24 Hours up to 6 AM 06/01/19 06:00 Intake Total 1910 ml Output Total 1100 ml Balance 810 ml LAMIN KENNEDY MD Jun 01, 2019 19:02
[2019-06-01 19:43] VITALS: BP 132/71
[2019-06-01 19:44] VITALS: BP 132/71
[2019-06-02] MEDS: CEFEPIME HCL 2 GM in D5W MINI-BAG PLUS 50 ML IV SCH ×2 (03:23→11:19)
[2019-06-02] MEDS: SODIUM CHLORIDE 0.9% INJ 10 ML SYR IV SCH (05:43)
[2019-06-02 06:50] VITALS: BP 130/71
[2019-06-02] MEDS: HumaLOG INSULIN (NovoLOG) PER UNIT SC SCH ×2 (07:30→13:16)
[2019-06-02] MEDS: FOLIC ACID 1 MG TAB PO SCH (09:24)
[2019-06-02] MEDS: MULTIVITAMINS/MINERALS THERAP 1 TAB PO SCH (09:24)
[2019-06-02] MEDS: ASCORBIC ACID 500 MG TAB PO SCH (09:24)
[2019-06-02] MEDS: DOCUSATE SODIUM 100 MG CAP PO SCH (09:24)
[2019-06-02 09:25] VITALS: BP 130/71
[2019-06-02] MEDS: ATORVASTATIN 20 MG TAB PO SCH (09:25)
[2019-06-02] MEDS: FINASTERIDE 5 MG TAB PO SCH (09:25)
[2019-06-02] MEDS: NEOSPORIN TOP OINT 15GM TOP SCH (09:25)
[2019-06-02] MEDS: METOPROLOL TART 12.5 MG PER 1/2 TAB PO SCH (09:25)
[2019-06-02] MEDS: ASPIRIN 325 MG TAB PO SCH (09:25)
[2019-06-02] MEDS: OMEGA-3 1000MG CAPSULE PO SCH (09:26)
[2019-06-02] MEDS: TAMSULOSIN 0.4 MG CAP PO SCH (09:27)
[2019-06-02 14:00] VITALS: BP 118/62
[2019-06-02] MEDS ORDERED: CEFE2INJ2 IV ×2 (15:06→23:01)
[2019-06-02] MEDS ORDERED: RAPA8CAP4 PO (22:51)
[2019-06-02] MEDS ORDERED: HYDR10TAB PO (22:59)
[2019-06-02] MEDS ORDERED: METF500T13 PO ×2 (22:59)
[2019-06-02] MEDS ORDERED: METO1TAB87 PO (22:59)
[2019-06-02] MEDS ORDERED: FLOM0.4C39 PO (22:59)
[2019-06-02] MEDS ORDERED: DOCU100C16 PO (23:01)
--- NOTE | 2019-06-05 00:36 | DS.PDOC ---
Discharge Summary General Date of Admission May 31, 2019 at 18:59 Date of Discharge May Discharge Summary PROCEDURES PERFORMED DURING STAY: PICC line insertion ADMITTING DIAGNOSES: 1. Complicated UTI sec to Pseudomonas infection 2. s/p PICC line insertion DISCHARGE DIAGNOSES: same as above COMPLICATIONS/CHIEF COMPLAINT: Pseudomonas Urinary Tract Infection. HISTORY OF PRESENT ILLNESS: 84 yo male with history of urinary retention, present with increasing dysuria over the past 6 months and worsening urinary incontinence. Patient is followed by urology - Dr Domenico Chavez and states that wyman cath first placed in Sep 2018 because of urine retention, then 1 week ago cathetar removed because of pain at the tip of penis. He states he was told the dysuria was due to penile irritation from prior foleyFriday he had repeat urine culture and notified today that he had psueodomonas . Patient sent for ID consult and Dr Mao sent over for ER evaluation and admission for IV Cefepime and PICC line.. Patient is adamantly refusing wyman, post void residual bladder scan or straight cath. Patient states no fever, no back pain. normal stool this AM without difficulty. HOSPITAL COURSE: 1) Pseudomonas UTI s/p PICC insertion, IV cefepime based on urine culture from [facility]. Urine culture report requested. Home meds for T2DM and HTN were resumed. PFS consult obtained to arrange for infusion of IV cefepime for two weeks at home. Arrangements have been made. Visiting RN to administer cefepime IV q12hr. DVT PROPHYLAXIS: enoxaprin given. Pain was controlled. Pt is clinically optimized to dc home on IV Abx via PICC for two weeks for pseudomonas UTI. Pt to f/u with Dr [facility] to f/u cultures and need for continuation of treatment. DISCHARGE MEDICATIONS: Please see below. ALLERGIES: Please see below. PHYSICAL EXAMINATION ON DISCHARGE: VITAL SIGNS: Please see below. General Exam: Positive: Alert, Cooperative, Mild Distress Eye Exam: Positive: PERRLA, Conjunctiva & lids normal, EOMI ENT Exam: Positive: Atraumatic, Mucous membr. moist/pink, Pharynx Normal Neck Exam: Positive: Supple, +2 carotid pulse wo bruit Chest Exam: Positive: Clear to auscultation, Normal air movement; Negative: Rales, Rhonchi, Wheezing Heart Exam: Positive: Rate Normal, Regular Rhythm Abdomen Exam: Positive: Normal bowel sounds, Soft (NT ND, no CVA tenderness) Extremity Exam: Positive: Edema (trace ankle edema non pitting), Normal pulses; Negative: Clubbing, Cyanosis Skin Exam: Positive: Nl turgor and temperature Neuro Exam: Positive: Normal Gait (seen walking to and from ED restroom across the cameron), Normal Speech, Strength at 5/5 X4 ext, Normal Tone, Sensation Intact Psych Exam: Positive: Mental status NL, Mood NL, Oriented x 3 Other physical findings EXAM: uncircumsized male, tip of penis with mild irritation, no phimosis, no bleeding LABORATORY DATA: Please see below. PROGNOSIS: fair ACTIVITY: [As tolerated]. DIET: diabetic low cholesterol DISCHARGE PLAN: DISPOSITION: 01 Home, Self-Care. DISCHARGE INSTRUCTIONS: 1. return to ED for fever chest pain shortness of breath ITEMS TO FOLLOWUP ON ON OUTPATIENT: 1. Infectious disease clinic in one week DISCHARGE CONDITION: [Stable]. TIME SPENT ON DISCHARGE: Greater than 30 minutes. Vital Signs/I&Os Vital Signs Date Time Temp Pulse Resp B/P (MAP) Pulse Ox O2 Delivery O2 Flow Rate FiO2 06/02/19 14:00 97.4 64 20 118/62 (80) 94 05/30/19 17:37 Room Air Microbiology Microbiology 05/30/19 Urine Culture - Final, Complete Pseudomonas Aeruginosa Discharge Medications Scheduled Ascorbic Acid (Ascorbic Acid) 500 Mg Tablet, 500 MG PO DAILY, (Reported) Aspirin (Aspirin) 325 Mg Tablet, 325 MG PO DAILY, (Reported) Atorvastatin Calcium (Atorvastatin Calcium) 40 Mg Tab, 40 MG PO DAILY, (Reported) Cefepime in Iso-Osm Dextrose (Cefepime 2 gm Injection) 2 Gm/100 Ml Froz.piggy, 2 GM IV Q8H, (Reported) Cinnamon Bark (Cinnamon) 500 Mg Capsule, 500 MG PO QPM, (Reported) Docusate Sodium (Docusate Sodium) 100 Mg Capsule, 100 MG PO BID, (Reported) Finasteride (Finasteride) 5 Mg Tab, 5 MG PO DAILY, (Reported) Folic Acid (Folic Acid) 1 Mg Tab, 1 MG PO DAILY, (Reported) Metformin HCl (Metformin HCl) 500 Mg Tablet, 500 MG PO QAM, (Reported) Metformin HCl (Metformin HCl) 500 Mg Tablet, 1,000 MG PO QPM, (Reported) Metoprolol Tartrate (Metoprolol Tartrate) 25 Mg Tablet, 12.5 MG PO BID, (Reported) Multivitamins (Thera M Plus Tablet) 1 Each Tablet, 1 TAB PO DAILY, (Reported) [place]-3 Fatty Acids/Fish Oil ([place] 3 1,000 mg Softgel) 1 Cap Cap, 1 CAP PO DAILY, (Reported) Silodosin (Rapaflo) 8 Mg Capsule, 8 MG PO DAILY, (Reported) Scheduled PRN Hydralazine HCl (Hydralazine HCl) 10 Mg Tablet, 10 MG PO BID PRN for BLOOD PRESSURE, (Reported) FOR SBP >170 Ibuprofen (Ibu-200) 200 Mg Tablet, 200 MG PO Q4H PRN for PAIN, (Reported) Neomycin/Bacitracin/Polymyxinb (Triple Antibiotic Ointment) 1 Each Oint.pack, 1 APLCT EXT DAILY PRN for URINARY CATHETER IRRITATION, (Reported) Allergies Coded Allergies: Sulfa (Sulfonamide Antibiotics) (Verified Allergy, Severe, MOUTH SWELLING, 06/02/19) ciprofloxacin (Verified Allergy, Severe, JOINT PAIN/SWELLING, 06/02/19) LAMIN KNENEDY MD Jun 05, 2019 00:36
--- NOTE | 2019-06-06 17:45 | REP ---
Procedure: PICC line insertion with Za The procedure was performed under the direct supervision of Dr. Quinones. The risks and benefits of the procedure were explained to the patient and informed consent was obtained. The right basilic vein was localized using ultrasound guidance. The skin was prepped and draped in a sterile fashion. 2% lidocaine was used as a local anesthetic. Using ultrasound guidance the basilic vein was cannulated and a 0.018 guidewire was inserted and advanced to the SVC using fluoroscopic guidance. The needle was removed and a 4.5 Fijian dilator and peel-away sheath was inserted over the guide wire. A 4.5 Fijian single lumen catheter was cut to length of 43 cm. The dilator was removed and the catheter was inserted over the guide wire with the tip ending in the SVC. The peel-away sheath was removed and the catheter was flushed with heparinized saline as per Hospital protocol. The catheter was affixed to the skin and a sterile dressing was applied. The patient tolerated the procedure well and there were no immediate complications. 0.2 minutes of fluoro time was utilized for this procedure. Reviewed by ELAINE Gordon 05/31/2019 05:01 P Electronically Signed by rEic Quinones MD 06/06/2019 05:36 P
== END 2019-06-02 16:10 | disposition home health service (06) | DRG 690 ==
LOC: M ED 19:44 → M ED INP 19:58 → M MS5PR 21:10 → OBSVTOIN 05-31 18:59
PROVIDERS: ADMIT Family Medicine; ATTEND Hospitalist
PROC: 02HV33Z Insertion of Infusion Device into Superior Vena Cava, Percutaneous Approach (ICD-10-PCS; principal; 2019-05-31)
DX: N39.0 Urinary tract infection, site not specified (principal); B96.5 Pseudomonas (aeruginosa) (mallei) (pseudomallei) as the cause of diseases classified elsewhere; N40.1 Benign prostatic hyperplasia with lower urinary tract symptoms; E11.9 Type 2 diabetes mellitus without complications; I10 Essential (primary) hypertension; R33.9 Retention of urine, unspecified; R32 Unspecified urinary incontinence; E78.5 Hyperlipidemia, unspecified; Z79.82 Long term (current) use of aspirin; Z79.84 Long term (current) use of oral hypoglycemic drugs; Z79.899 Other long term (current) drug therapy; Z88.1 Allergy status to other antibiotic agents; Z88.2 Allergy status to sulfonamides; Z98.1 Arthrodesis status

== ENCOUNTER 2019-06-02 21:16 | Observation (INO) | payer MEDICARE, OTHER ==
[~2019-06-02] VITALS: Ht 182.9 cm; Wt 90.2 kg
[2019-06-02] MEDS: METOPROLOL TART 25 MG TABLET PO SCH (21:00)
[2019-06-02] MEDS: DOCUSATE SODIUM 100 MG CAP PO SCH (21:00)
[~2019-06-02 21:16] MED LIST changes: +ASCO500T PO; +BAYE325T13 PO; +CEFE2INJ2 IV; +CINN500C12 PO; +CYAN100050 PO; +DOCUSATE SODIUM 100 MG CAP PO SCH; +IBUP200T45 PO; +NEOSOI EXT; +RAPA8CAP4 PO; +VITMTA PO
[2019-06-02] MEDS ORDERED: NS 1,000 ML IV ONE (21:45)
[2019-06-02 22:02] LABS: BASO # 0.1 10^3/uL (0.0-0.2); BASO % 0.9 % (0.0-1.0); EOS # 0.4 10^3/uL (0.0-0.50); EOS % 6.5 % (0.0-3.0); HEMATOCRIT 36.8 % (42.0-52.0); HEMOGLOBIN 11.9 g/dl (13.5-17.5); LYMPH # 1.5 10^3/uL (1.5-4.5); LYMPH % 26.5 % (24.0-44.0); MEAN CORPUSCULAR HEMOGLOBIN 30.8 pg (27.0-33.0); MEAN CORPUSCULAR HGB CONC 32.3 g/dl (32.0-36.5); MEAN CORPUSCULAR VOLUME 95.3 fl (80.0-96.0); MONO # 0.7 10^3/uL (0.0-0.8); MONO % 12.5 % (0.0-5.0); NEUTROPHILS % 52.9 % (36.0-66.0); PLATELET COUNT, AUTOMATED 193 10^3/uL (150-450); RED BLOOD COUNT 3.86 10^6/uL (4.30-6.10); WHITE BLOOD COUNT 5.7 10^3/uL (4.0-10.0)
[2019-06-02] MEDS ORDERED: RAPA8CAP4 PO (22:51)
[2019-06-02 22:57] LABS: ACETAMINOPHEN LEVEL < 2.0 UG/ML (10.0-30.0); ALBUMIN 3.2 GM/DL (3.2-5.2); ALT/SGPT 14 U/L (12-78); BILIRUBIN,DIRECT 0.2 MG/DL (0.0-0.2); BILIRUBIN,TOTAL 0.4 MG/DL (0.2-1.0); BLOOD UREA NITROGEN 24 MG/DL (7-18); CALCIUM LEVEL 8.5 MG/DL (8.8-10.2); CARBON DIOXIDE LEVEL 28 MEQ/L (21-32); CHLORIDE LEVEL 108 MEQ/L (98-107); CK-MB VALUE MASS 1.1 NG/ML (<3.6); CPK CREATINE PHOSPHOKINASE 67 U/L (39-308); CREATININE FOR GFR 1.05 MG/DL (0.70-1.30); ETHYL ALCOHOL (ETHANOL) < 0.003 % (0.000-0.010); GLOMERULAR FILTRATION RATE > 60.0 (>35); GLUCOSE, FASTING 123 MG/DL (70-100); MB/CK RELATIVE INDEX 1.64 (< OR =4); POTASSIUM SERUM 4.2 MEQ/L (3.5-5.1); SALICYLATE LEVEL < 1.7 MG/DL (5.0-30.0); SODIUM LEVEL 142 MEQ/L (136-145); TOTAL PROTEIN 6.2 GM/DL (6.4-8.2); TROPONIN I < 0.02 NG/ML (< 0.10)
[2019-06-02] MEDS ORDERED: HYDR10TAB PO (22:59)
[2019-06-02] MEDS ORDERED: METF500T13 PO ×2 (22:59)
[2019-06-02] MEDS ORDERED: METO1TAB87 PO (22:59)
[2019-06-02] MEDS ORDERED: FLOM0.4C39 PO (22:59)
[2019-06-02] MEDS ORDERED: DOCU100C16 PO (23:01)
[2019-06-02] MEDS ORDERED: CEFE2INJ2 IV (23:01)
[2019-06-03] MEDS ORDERED: MOM 30ML SUSPENSION UDC PO PRN
[2019-06-03] MEDS ORDERED: ACETAMINOPHEN TAB 650MG DOSE (2X325MG) PO PRN
[2019-06-03] MEDS ORDERED: MAALOX 30 ML SUSP *UDC PO PRN
[2019-06-03] MEDS ORDERED: NEOSPORIN TOP OINT 15GM TOP PRN (00:15)
[2019-06-03] MEDS ORDERED: **hydrALAZINE** 10 MG TAB PO PRN (00:15)
[2019-06-03] MEDS ORDERED: diphenhydrAMINE INJ 50MG/ML VIAL (J1200) IV PRN (00:15)
--- NOTE | 2019-06-03 00:16 | HPEPDOC ---
General Date of Admission 06/02/19 Date of Service: Jun 02, 2019 Other Providers H&P performed by Dr Mace Attending Physician: LAMIN KENNEDY MD Chief Complaint The patient is a 84-year-old male admitted with a reason for visit of AMS. Source: Patient, Family, Old records Exam Limitations: No limitations Timing/Duration: Intermittent, Resolved prior to arrival Severity: Moderate Associated Symptoms: Other (confusion, repetative questions) History of Present Illness 84 yo male discharged earlier today with PICC line and pseudomonas UTI requiring cefepime q12h, was brought back to ED by EMS after visiting nurse found them in a house with no air conditioning, above 100 degrees room temperature, confused. Patient states he feels fine and wants to go home. , daughter state his mentation is back to normal except that sometimes he is repeating questions and doesn't remember why he came to hospital. Daughter states that patient did not sleep well for past 3 days in hospital. Currently patient is alert , oriented to time, place, date but does not recall much of hospitalization or reason he was hospitalized 3 days ago. He does recall the admitting doctors name and conversation we had at time of his admission on 05/30/19 Patient states no fever, no ARAIZA, no N, no V, no dysuria, no urgency, no CP, no SOB. Home Medications Scheduled Ascorbic Acid (Ascorbic Acid) 500 Mg Tablet, 500 MG PO DAILY, (Reported) Aspirin (Aspirin) 325 Mg Tablet, 325 MG PO DAILY, (Reported) Atorvastatin Calcium (Atorvastatin Calcium) 40 Mg Tab, 40 MG PO DAILY, (Reported) Cefepime in Iso-Osm Dextrose (Cefepime 2 gm Injection) 2 Gm/100 Ml Froz.piggy, 2 GM IV Q8H, (Reported) Cinnamon Bark (Cinnamon) 500 Mg Capsule, 500 MG PO QPM, (Reported) Docusate Sodium (Docusate Sodium) 100 Mg Capsule, 100 MG PO BID, (Reported) Finasteride (Finasteride) 5 Mg Tab, 5 MG PO DAILY, (Reported) Folic Acid (Folic Acid) 1 Mg Tab, 1 MG PO DAILY, (Reported) Metformin HCl (Metformin HCl) 500 Mg Tablet, 500 MG PO QAM, (Reported) Metformin HCl (Metformin HCl) 500 Mg Tablet, 1,000 MG PO QPM, (Reported) Metoprolol Tartrate (Metoprolol Tartrate) 25 Mg Tablet, 12.5 MG PO BID, (Reported) Multivitamins (Thera M Plus Tablet) 1 Each Tablet, 1 TAB PO DAILY, (Reported) [place]-3 Fatty Acids/Fish Oil ([place] 3 1,000 mg Softgel) 1 Cap Cap, 1 CAP PO MITZI LY, (Reported) Silodosin (Rapaflo) 8 Mg Capsule, 8 MG PO DAILY, (Reported) Scheduled PRN Hydralazine HCl (Hydralazine HCl) 10 Mg Tablet, 10 MG PO BID PRN for BLOOD PRESSURE, (Reported) FOR SBP >170 Ibuprofen (Ibu-200) 200 Mg Tablet, 200 MG PO Q4H PRN for PAIN, (Reported) Neomycin/Bacitracin/Polymyxinb (Triple Antibiotic Ointment) 1 Each Oint.pack, 1 APLCT EXT DAILY PRN for URINARY CATHETER IRRITATION, (Reported) Allergies Coded Allergies: Sulfa (Sulfonamide Antibiotics) (Verified Allergy, Severe, MOUTH SWELLING, 06/02/19) ciprofloxacin (Verified Allergy, Severe, JOINT PAIN/SWELLING, 06/02/19) Past Medical History Medical History HTN BPH NIDDM Hyperlipidemia Pseudomonas UTI PSHX: Cervical spinal fusion Left trigger finger repair Family History: Mother/father from "heart problems" Social History: no tobacco use, occasional glass wine with dinner A-FIB/CHADSVASC A-FIB History Current/History of A-Fib/PAF?: No Current PO Anticoag Therapy: No Review of Systems Other systems 10 systems reviewed and negative except as per HPI. Physical Examination General Exam: Positive: Alert, Cooperative, No Acute Distress Eye Exam: Positive: PERRLA, Conjunctiva & lids normal, EOMI ENT Exam: Positive: Atraumatic, Mucous membr. moist/pink, Pharynx Normal, Other ENT (hard of hearing) Neck Exam: Positive: Supple, +2 carotid pulse wo bruit Chest Exam: Positive: Clear to auscultation, Normal air movement Heart Exam: Positive: Rate Normal, Regular Rhythm Abdomen Exam: Positive: Normal bowel sounds, Soft Extremity Exam: Positive: Normal pulses; Negative: Clubbing, Cyanosis, Edema Skin Exam: Positive: Nl turgor and temperature Neuro Exam: Positive: Normal Speech, Strength at 5/5 X4 ext, Normal Tone, Sensation Intact, Cranial Nerves 3-12 NL Psych Exam: Positive: Mental status NL, Mood NL, Oriented x 3, Other (poor memory of reason for recent hospitalization, no recall of prior dysuria or UTI) Vital Signs Vital Signs Date Time Temp Pulse Resp B/P (MAP) Pulse Ox O2 Delivery O2 Flow Rate FiO2 06/02/19 21:27 97.8 70 18 177/83 (114) 93 Room Air Laboratory Data Labs 24H Laboratory Tests 2 06/02/19 21:48: Immature Granulocyte % (Auto) 0.7, White Blood Count 5.7, Red Blood Count 3.86L, Hemoglobin 11.9L, Hematocrit 36.8L, Mean Corpuscular Volume 95.3, Mean Corpuscular Hemoglobin 30.8, Mean Corpuscular Hemoglobin Concent 32.3, Red Cell Distribution Width 13.1, Platelet Count 193, Neutrophils (%) (Auto) 52.9, Lymphocytes (%) (Auto) 26.5, Monocytes (%) (Auto) 12.5H, Eosinophils (%) (Auto) 6.5H, Basophils (%) (Auto) 0.9, Neutrophils # (Auto) 3.0, Lymphocytes # (Auto) 1.5, Monocytes # (Auto) 0.7, Eosinophils # (Auto) 0.4, Basophils # (Auto) 0.1, Nucleated Red Blood Cells % (auto) 0.0, Anion Gap 6L, Glomerular Filtration Rate > 60.0, Calcium Level 8.5L, Aspartate Amino Transf (AST/SGOT) 16, Alanine Aminotransferase (ALT/SGPT) 14, Alkaline Phosphatase 71, Total Bilirubin 0.4, Direct Bilirubin 0.2, Ammonia < 10, Total Creatine Kinase 67, Creatine Kinase MB 1.1, Creatine Kinase MB Relative Index 1.64, Troponin I < 0.02, Total Protein 6.2L, Albumin 3.2, Albumin/Globulin Ratio 1.07, Salicylates Level < 1.7L, Acetaminophen Level < 2.0L, Ethyl Alcohol Level < 0.003 CBC/BMP Laboratory Tests 06/02/19 21:48 Red Blood Count 3.86 L, Mean Corpuscular Volume 95.3, Mean Corpuscular Hemoglobin 30.8, Mean Corpuscular Hemoglobin Concent 32.3, Red Cell Distribution Width 13.1, Neutrophils (%) (Auto) 52.9, Lymphocytes (%) (Auto) 26.5, Monocytes (%) (Auto) 12.5 H, Eosinophils (%) (Auto) 6.5 H, Basophils (%) (Auto) 0.9, Neutrophils # (Auto) 3.0, Lymphocytes # (Auto) 1.5, Monocytes # (Auto) 0.7, Eosinophils # (Auto) 0.4, Basophils # (Auto) 0.1 Assessment/Plan [place] - resolving- OBSERVATION Most likely a combination of hard of hearing, early heat exhaustion with poor sleep/exhaustion from recent hospitalization and underlying pseudomonas UTI . continue current meds. neuro check Pseudomonas UTI - continue PICC line/cefepime q12h HTN - restart home meds (did not take evening metoprolol or hydralazine) Disposition: son is working on getting AC for home; anticipate d/c tomorrow if back to baseline. Plan / VTE VTE Prophylaxis Ordered?: Yes GRISELDA MACE DO Jun 02, 2019 23:59
[2019-06-03] MEDS ORDERED: METOPROLOL TART 12.5 MG PER 1/2 TAB PO ONE (00:45)
[2019-06-03 01:30] VITALS: BP 171/89
[2019-06-03 01:45] VITALS: BP 160/90
[2019-06-03] MEDS: **hydrALAZINE** 10 MG TAB PO SCH ×2 (01:57→10:07)
[2019-06-03] MEDS ORDERED: CEFEPIME HCL 2 GM in D5W MINI-BAG PLUS 50 ML IV SCH ×2 (02:00→20:00)
[2019-06-03 06:00] VITALS: BP 147/82
--- NOTE | 2019-06-03 07:02 | REP ---
Clinical: Altered mental status. Comparison: 05/18/2019. Findings: Mediastinum and cardiac silhouette are stable. Chronic elevation to the left hemidiaphragm along with linear scarring in the left mid lung zone remains stable. No obvious acute consolidation, effusion, or pneumothorax. Right PICC line with tip in the SVC. Impression: Chronic changes. No acute cardiopulmonary process appreciated. Electronically Signed by Alan Lee MD 06/03/2019 06:54 A
[2019-06-03] MEDS ORDERED: ASCORBIC ACID 500 MG TAB PO SCH (09:00)
[2019-06-03] MEDS ORDERED: TAMSULOSIN 0.4 MG CAP PO SCH ×2 (09:00)
[2019-06-03] MEDS ORDERED: OMEGA-3 1000MG CAPSULE PO SCH (09:00)
[2019-06-03] MEDS ORDERED: ASPIRIN 325 MG TAB PO SCH (09:00)
[2019-06-03] MEDS ORDERED: FOLIC ACID 1 MG TAB PO SCH (09:00)
[2019-06-03] MEDS ORDERED: FINASTERIDE 5 MG TAB PO SCH (09:00)
[2019-06-03] MEDS ORDERED: MULTIVITAMINS/MINERALS THERAP 1 TAB PO SCH (09:00)
[2019-06-03] MEDS ORDERED: ENOXAPARIN 40 MG/0.4 ML SYRINGE (J1650) SC SCH (09:00)
[2019-06-03] MEDS ORDERED: ATORVASTATIN 20 MG TAB PO SCH (09:00)
[2019-06-03 10:05] VITALS: BP 147/82
[2019-06-03] MEDS: METOPROLOL TART 25 MG TABLET PO SCH (10:05)
[2019-06-03] MEDS: DOCUSATE SODIUM 100 MG CAP PO SCH (10:07)
--- NOTE | 2019-06-03 11:19 | ECGEPIP ---
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
--- NOTE | 2019-06-05 00:40 | DS.PDOC ---
Discharge Summary General Date of Admission Jun 02, 2019 at 23:54 Date of Discharge Jun 03, 2019 Discharge Summary PROCEDURES PERFORMED DURING STAY: [None]. ADMITTING DIAGNOSES: 1. Confusion 2. Pseudomonas UTI DISCHARGE DIAGNOSES: same COMPLICATIONS/CHIEF COMPLAINT: Delirium. HISTORY OF PRESENT ILLNESS: 84 yo male discharged earlier today with PICC line and pseudomonas UTI requiring cefepime q12h, was brought back to ED by EMS after visiting nurse found them in a house with no air conditioning, above 100 degrees room temperature, confused. Patient states he feels fine and wants to go home. , daughter state his mentation is back to normal except that sometimes he is repeating questions and doesn't remember why he came to hospital. Daughter states that patient did not sleep well for past 3 days in hospital. Currently patient is alert , oriented to time, place, date but does not recall much of hospitalization or reason he wa s hospitalized 3 days ago. He does recall the admitting doctors name and conversation we had at time of his admission on 05/30/19 Patient states no fever, no ARAIZA, no N, no V, no dysuria, no urgency, no CP, no SOB. HOSPITAL COURSE: Pt was discharged on Jun 02 with PICC line and IV antibiotics, RN from [employer] found pt at home with no air condition and no memory of his recent hospitalization, pt returned to ED, in AM pt clinically optimized to dc home with improved mental status and resolved home situation for air condition. Delerium - resolved- OBSERVATION likely a combination of hard of hearing, early heat exhaustion with poor sleep/exhaustion from recent hospitalization and underlying pseudomonas UTI continue current meds. neuro check Pseudomonas UTI - continue PICC line/cefepime q12h HTN - restart home meds (did not take evening metoprolol or hydralazine) DISCHARGE MEDICATIONS: Please see below. ALLERGIES: Please see below. PHYSICAL EXAMINATION ON DISCHARGE: VITAL SIGNS: Please see below. General Exam: Positive: Alert, Cooperative, No Acute Distress Eye Exam: Positive: PERRLA, Conjunctiva & lids normal, EOMI ENT Exam: Positive: Atraumatic, Mucous membr. moist/pink, Pharynx Normal, Other ENT (hard of hearing) Neck Exam: Positive: Supple, +2 carotid pulse wo bruit Chest Exam: Positive: Clear to auscultation, Normal air movement Heart Exam: Positive: Rate Normal, Regular Rhythm Abdomen Exam: Positive: Normal bowel sounds, Soft Extremity Exam: Positive: Normal pulses; Negative: Clubbing, Cyanosis, Edema Skin Exam: Positive: Nl turgor and temperature Neuro Exam: Positive: Normal Speech, Strength at 5/5 X4 ext, Normal Tone, Sensation Intact, Cranial Nerves 3-12 NL Psych Exam: Positive: Mental status NL, Mood NL, Oriented x 3, Other (poor memory of reason for recent hospitalization, no recall of prior dysuria or UTI) LABORATORY DATA: Please see below. IMAGING: NA PROGNOSIS:fair ACTIVITY: [As tolerated]. DIET: diabetic low cholesterol DISCHARGE PLAN: DISPOSITION: Home, Self-Care. DISCHARGE INSTRUCTIONS: Return to ED with fever chest pain shortness of breath ITEMS TO FOLLOWUP ON ON OUTPATIENT: 1. ID Clinic in one week DISCHARGE CONDITION: [Stable]. TIME SPENT ON DISCHARGE: 20 minutes. Vital Signs/I&Os Vital Signs Date Time Temp Pulse Resp B/P (MAP) Pulse Ox O2 Delivery O2 Flow Rate FiO2 06/03/19 10:05 65 147/82 06/03/19 06:00 97.8 12 91 06/03/19 01:16 Room Air Discharge Medications Scheduled Ascorbic Acid (Ascorbic Acid) 500 Mg Tablet, 500 MG PO DAILY, (Reported) Aspirin (Aspirin) 325 Mg Tablet, 325 MG PO DAILY, (Reported) Atorvastatin Calcium (Atorvastatin Calcium) 40 Mg Tab, 40 MG PO DAILY, (Reported) Cefepime in Iso-Osm Dextrose (Cefepime 2 gm Injection) 2 Gm/100 Ml Froz.piggy, 2 GM IV Q8H, (Reported) Cinnamon Bark (Cinnamon) 500 Mg Capsule, 500 MG PO QPM, (Reported) Docusate Sodium (Docusate Sodium) 100 Mg Capsule, 100 MG PO BID, (Reported) Finasteride (Finasteride) 5 Mg Tab, 5 MG PO DAILY, (Reported) Folic Acid (Folic Acid) 1 Mg Tab, 1 MG PO DAILY, (Reported) Metformin HCl (Metformin HCl) 500 Mg Tablet, 500 MG PO QAM, (Reported) Metformin HCl (Metformin HCl) 500 Mg Tablet, 1,000 MG PO QPM, (Reported) Metoprolol Tartrate (Metoprolol Tartrate) 25 Mg Tablet, 12.5 MG PO BID, (Reported) Multivitamins (Thera M Plus Tablet) 1 Each Tablet, 1 TAB PO DAILY, (Reported) [place]-3 Fatty Acids/Fish Oil ([place] 3 1,000 mg Softgel) 1 Cap Cap, 1 CAP PO DAILY, (Reported) Silodosin (Rapaflo) 8 Mg Capsule, 8 MG PO DAILY, (Reported) Scheduled PRN Hydralazine HCl (Hydralazine HCl) 10 Mg Tablet, 10 MG PO BID PRN for BLOOD PRESSURE, (Reported) FOR SBP >170 Ibuprofen (Ibu-200) 200 Mg Tablet, 200 MG PO Q4H PRN for PAIN, (Reported) Neomycin/Bacitracin/Polymyxinb (Triple Antibiotic Ointment) 1 Each Oint.pack, 1 APLCT EXT DAILY PRN for URINARY CATHETER IRRITATION, (Reported) Allergies Coded Allergies: Sulfa (Sulfonamide Antibiotics) (Verified Allergy, Severe, MOUTH SWELLING, 06/02/19) ciprofloxacin (Verified Allergy, Severe, JOINT PAIN/SWELLING, 06/02/19) LAMIN KENNEDY MD Jun 05, 2019 00:40
== END 2019-06-03 12:33 | disposition home or self-care (01) ==
LOC: M ED 21:16 → M ED INP 23:54 → M MS5PR 06-03 01:44
PROVIDERS: ADMIT Family Medicine; ATTEND Family Medicine
DX: R41.0 Disorientation, unspecified (principal); N39.0 Urinary tract infection, site not specified; B96.5 Pseudomonas (aeruginosa) (mallei) (pseudomallei) as the cause of diseases classified elsewhere; I10 Essential (primary) hypertension; N40.0 Benign prostatic hyperplasia without lower urinary tract symptoms; E11.9 Type 2 diabetes mellitus without complications; E78.49 Other hyperlipidemia; Z79.82 Long term (current) use of aspirin; Z79.84 Long term (current) use of oral hypoglycemic drugs; Z79.899 Other long term (current) drug therapy; Z88.2 Allergy status to sulfonamides
CPT/HCPCS: 71045; 80048; 80076; 82140; 82550; 82553; 84484; 85025; 93005; 93041; 94760; 96361; 96365; 96366; 96372; 99285; G0378; G0480; J0692; J1650

== ENCOUNTER → 2019-06-13 | Outpatient (REF) | payer MEDICARE, OTHER ==
[~2019-06-13] MED LIST changes: +DOCU100C16 PO; -DOCUSATE SODIUM 100 MG CAP PO SCH; +HYDR10TAB PO; +METO1TAB87 PO
[2019-06-13 16:08] LABS: BASO # 0.1 10^3/uL (0.0-0.2); BASO % 1.5 % (0.0-1.0); EOS # 0.4 10^3/uL (0.0-0.50); EOS % 6.7 % (0.0-3.0); HEMATOCRIT 42.7 % (42.0-52.0); HEMOGLOBIN 13.7 g/dl (13.5-17.5); LYMPH # 1.7 10^3/uL (1.5-4.5); LYMPH % 29.7 % (24.0-44.0); MEAN CORPUSCULAR HEMOGLOBIN 30.9 pg (27.0-33.0); MEAN CORPUSCULAR HGB CONC 32.1 g/dl (32.0-36.5); MEAN CORPUSCULAR VOLUME 96.4 fl (80.0-96.0); MONO # 0.5 10^3/uL (0.0-0.8); MONO % 8.6 % (0.0-5.0); NEUTROPHILS # 3.1 10^3/uL (1.8-7.7); PLATELET COUNT, AUTOMATED 239 10^3/uL (150-450); RED BLOOD COUNT 4.43 10^6/uL (4.30-6.10); WHITE BLOOD COUNT 5.8 10^3/uL (4.0-10.0)
[2019-06-13 16:15] LABS: ALBUMIN 3.8 GM/DL (3.2-5.2); ALT/SGPT 18 U/L (12-78); BILIRUBIN,TOTAL 0.6 MG/DL (0.2-1.0); BLOOD UREA NITROGEN 11 MG/DL (7-18); CALCIUM LEVEL 9.2 MG/DL (8.8-10.2); CARBON DIOXIDE LEVEL 31 MEQ/L (21-32); CHLORIDE LEVEL 105 MEQ/L (98-107); CREATININE FOR GFR 0.97 MG/DL (0.70-1.30); GLOMERULAR FILTRATION RATE > 60.0 (>35); GLUCOSE, FASTING 135 MG/DL (70-100); POTASSIUM SERUM 4.6 MEQ/L (3.5-5.1); SODIUM LEVEL 141 MEQ/L (136-145); TOTAL PROTEIN 7.1 GM/DL (6.4-8.2)
== END ==
LOC: M SFHCPLAZ 12:04
PROVIDERS: ATTEND Internal Medicine Infectious Disease
DX: N39.0 Urinary tract infection, site not specified (principal)
CPT/HCPCS: 80053; 85025; G0463

== ENCOUNTER → 2019-06-15 | Outpatient (CLI) | payer MEDICARE, OTHER ==
[~2019-06-15] MED LIST changes: +ISOVUE-370 76% 100ML VIAL (Q9967) As Ordered ONE
--- NOTE | 2019-06-15 17:11 | REP ---
CT of the abdomen pelvis with IV and bowel contrast for urinary tract infection: Comparison is 07/07/2018. There is normal renal cortical enhancement bilaterally. There is no evidence of renal abscess, mass or cyst. There is no perinephric stranding or perinephric fluid collection. There is no hydronephrosis or hydroureter. No renal or ureteral calculi are identified. The bladder is more optimally distended today. There is bladder wall thickening posteriorly. This could be infectious or neoplastic. Cystoscopy might be considered. There are surgical clips in the prostate. The visualized lung ching demonstrate curvilinear parenchymal scarring in the left lower lobe. This was excluded from the prior scan. The left hemidiaphragm is elevated. This was also excluded from the prior scan. The hepatic parenchyma, gallbladder, pancreas, spleen, adrenals, and abdominal aorta, unremarkable and unchanged. There is wall thickening of the descending colon and sigmoid colon compatible with colitis in the appropriate clinical setting, not present previously. Pelvis: The bowel and mesentery are unremarkable. There is no ascites or adenopathy. There is bilateral hip osteoarthritis, unchanged. The lucency identified previously in the L4 vertebral body is unchanged, likely a large Schmorl's node. There is a small Schmorl's node in the L3 vertebral body, unchanged. There is advanced degenerative disc disease at L1-2 and L5 S1. This has progressed. Impression: Wall thickening of the posterior bladder wall seen to better advantage on the current study with better of improved distension. This could be infectious or neoplastic. Cystoscopy might be considered. The kidneys and ureters are unchanged unremarkable. There are findings compatible with the descending colon/sigmoid colon colitis in the appropriate clinical setting. The O for lucent lesion identified previously is unchanged, likely a large Schmorl's node. There is also an L3 small Schmorl's node. Degenerative disc disease at L1-2 and L5 S1 has progressed. Bilateral hip osteoarthritis, not significantly changed. Electronically Signed by Eric Ríos MD 06/15/2019 05:02 P
== END ==
LOC: M RAD 12:02
PROVIDERS: ATTEND Internal Medicine Infectious Disease
DX: N39.0 Urinary tract infection, site not specified (principal); M51.46 Schmorl's nodes, lumbar region; M51.36 Other intervertebral disc degeneration, lumbar region; M51.37 Other intervertebral disc degeneration, lumbosacral region; M16.0 Bilateral primary osteoarthritis of hip
CPT/HCPCS: 74177; Q9967

== ENCOUNTER → 2019-06-16 | Outpatient (REF) | payer MEDICARE, OTHER ==
[~2019-06-16] MED LIST changes: -ISOVUE-370 76% 100ML VIAL (Q9967) As Ordered ONE
[2019-06-16 13:33] LABS: APPEARANCE, URINE HAZY (CLEAR); BACTERIA, URINE AUTO NEGATIVE (NEGATIVE); BILIRUBIN, URINE AUTO NEGATIVE (NEGATIVE); BLOOD, URINE BLOOD 1+ (NEGATIVE); COLOR, URINE YELLOW (YELLOW); GLUCOSE, URINE (UA) AUTO NEGATIVE (NEGATIVE); KETONE, URINE AUTO TRACE mg/dL (NEGATIVE); LEUKOCYTE ESTERASE, URINE AUTO 3+ (NEGATIVE); MUCUS, URINE SMALL (NEGATIVE); NITRITE, URINE AUTO NEGATIVE (NEGATIVE); PROTEIN, URINE AUTO 1+ mg/dL (NEGATIVE); RBC, URINE AUTO 10 /HPF (0-3); SPECIFIC GRAVITY URINE AUTO 1.044 (1.002-1.035); SQUAMOUS EPITHELIAL CELL UR AU 1 /HPF (0-6); UROBILINOGEN, URINE AUTO 0.2 mg/dL (0.0-2.0); WBC, URINE AUTO 158 /HPF (0-3)
== END ==
LOC: M SHH 13:16 → M SFHCPLAZ 13:16
PROVIDERS: ATTEND Internal Medicine Infectious Disease
DX: N39.0 Urinary tract infection, site not specified (principal)

== ENCOUNTER → 2019-07-03 | Outpatient (REF) | payer MEDICARE, OTHER | LOC: M SHH 16:38 | PROVIDERS: ATTEND Nurse Practitioner Family | DX: R33.8 Other retention of urine (principal); N39.41 Urge incontinence ==

== ENCOUNTER → 2020-05-15 | Outpatient (REF) | payer MEDICARE, OTHER ==
[~2020-05-15] MED LIST changes: +AMLO1TAB24 PO; -AMLO5TAB6 PO; +SENN-53 PO; -SENN1TAB40 PO
[2020-05-15 14:47] LABS: BACTERIA, URINE AUTO 3+ (NEGATIVE); RBC, URINE AUTO 40 /HPF (0-3); SQUAMOUS EPITHELIAL CELL UR AU 0 /HPF (0-6); WBC, URINE AUTO TNTC /HPF (0-3)
== END ==
LOC: M LAB REF 11:52
PROVIDERS: ATTEND Physician Assistant Medical
DX: C61 Malignant neoplasm of prostate (principal); N39.0 Urinary tract infection, site not specified

== ENCOUNTER → 2020-07-11 | Emergency (ER) | payer MEDICARE, OTHER ==
--- NOTE | 2020-08-14 14:41 | ECGEPIP ---
SINUS RHYTHM NORMAL ECG SEE SCANNED DOWNTIME REPORT MTDD
[2020-08-26 01:02] LABS: HEMATOCRIT 41.1 % (42.0-52.0); HEMOGLOBIN 13.4 g/dl (13.5-17.5); MEAN CORPUSCULAR HEMOGLOBIN 31.4 pg (27.0-33.0); MEAN CORPUSCULAR HGB CONC 32.6 g/dl (32.0-36.5); MEAN CORPUSCULAR VOLUME 96.3 fl (80.0-96.0); PLATELET COUNT, AUTOMATED 224 10^3/uL (150-450); RED BLOOD COUNT 4.27 10^6/uL (4.30-6.10)
[2020-08-26 01:20] LABS: INR 0.98; PROTHROMBIN TIME 13.2 SECONDS (12.5-14.3)
== END | disposition home or self-care (01) ==
LOC: M ED 23:00
DX: S01.111A Laceration without foreign body of right eyelid and periocular area, initial encounter (principal); R42 Dizziness and giddiness; W18.30XA Fall on same level, unspecified, initial encounter; Y92.098 Other place in other non-institutional residence as the place of occurrence of the external cause; I11.9 Hypertensive heart disease without heart failure; E11.9 Type 2 diabetes mellitus without complications; Z79.899 Other long term (current) drug therapy; Z79.84 Long term (current) use of oral hypoglycemic drugs; Z79.82 Long term (current) use of aspirin

== ENCOUNTER → 2020-12-20 | Outpatient (REF) | payer MEDICARE, OTHER ==
[2020-12-20 17:28] LABS: BASO # 0.1 10^3/uL (0.0-0.2); BASO % 1.2 % (0.0-1.0); EOS # 0.2 10^3/uL (0.0-0.5); EOS % 3.3 % (0.0-3.0); HEMATOCRIT 42.8 % (42.0-52.0); HEMOGLOBIN 13.3 g/dl (13.5-17.5); LYMPH # 1.6 10^3/uL (1.5-5.0); LYMPH % 27.5 % (24.0-44.0); MEAN CORPUSCULAR HEMOGLOBIN 30.3 pg (27.0-33.0); MEAN CORPUSCULAR HGB CONC 31.1 g/dl (32.0-36.5); MEAN CORPUSCULAR VOLUME 97.5 fl (80.0-96.0); MONO # 0.5 10^3/uL (0.0-0.8); MONO % 8.5 % (0.0-5.0); NEUTROPHILS # 3.4 10^3/uL (1.5-8.5); NEUTROPHILS % 59.2 % (36.0-66.0); PLATELET COUNT, AUTOMATED 280 10^3/uL (150-450); RED BLOOD COUNT 4.39 10^6/uL (4.30-6.10); WHITE BLOOD COUNT 5.7 10^3/uL (4.0-10.0)
[2020-12-20 17:57] LABS: HEMOGLOBIN A1c 7.1 %
[2020-12-20 18:16] LABS: ALBUMIN 3.5 GM/DL (3.2-5.2); ALT/SGPT 11 U/L (12-78); BILIRUBIN,TOTAL 0.4 MG/DL (0.2-1.0); BLOOD UREA NITROGEN 18 MG/DL (7-18); CALCIUM LEVEL 9.1 MG/DL (8.8-10.2); CARBON DIOXIDE LEVEL 32 MEQ/L (21-32); CHLORIDE LEVEL 101 MEQ/L (98-107); CREATININE FOR GFR 1.12 MG/DL (0.70-1.30); GLOMERULAR FILTRATION RATE > 60.0 (>35); GLUCOSE, FASTING 141 MG/DL (70-100); POTASSIUM SERUM 4.7 MEQ/L (3.5-5.1); SODIUM LEVEL 140 MEQ/L (136-145); TOTAL PROTEIN 6.7 GM/DL (6.4-8.2)
== END ==
LOC: M LAB REF 16:20
PROVIDERS: ATTEND Nurse Practitioner Adult Health
DX: N39.0 Urinary tract infection, site not specified (principal); R42 Dizziness and giddiness; E11.42 Type 2 diabetes mellitus with diabetic polyneuropathy

== ENCOUNTER 2021-05-09 19:22 | Inpatient (IN) | payer MEDICARE, OTHER ==
[~2021-05-09] VITALS: Ht 185.4 cm; Wt 78.8 kg
[2021-05-09] MEDS: HumaLOG INSULIN (NovoLOG) PER UNIT SC SCH (00:28)
[~2021-05-09 19:22] MED LIST changes: +ASPI-569 PO; -ASPI81TAEC PO; +CEFEPIME HCL 2 GM in D5W MINI-BAG PLUS 50 ML IV SCH; -PEG1POW PO; +POLY17PO18 PO
--- NOTE | 2021-05-09 20:55 | REPVR ---
PROCEDURE INFORMATION: Exam: CT Head Without Contrast Exam date and time: 05/09/2021 8:21 PM Age: 86 years old Clinical indication: Altered mental status/memory loss; Confusion or disorientation TECHNIQUE: Imaging protocol: Computed tomography of the head without contrast. Radiation optimization: All CT scans at this facility use at least one of these dose optimization techniques: automated exposure control; mA and/or kV adjustment per patient size (includes targeted exams where dose is matched to clinical indication); or iterative reconstruction. COMPARISON: CT Head without contrast 07/11/2020 7:19 PM FINDINGS: Brain: There is moderate age related parenchymal volume loss. White matter changes are demonstrated in the subcortical, centrum semiovale and periventricular white matter consistent with chronic age related small vessel ischemic changes. Cerebral ventricles: The degree of ventricular dilatation is normal for age and/or degree of atrophy present. Paranasal sinuses: Visualized sinuses are unremarkable. No fluid levels. Mastoid air cells: Visualized mastoid air cells are well aerated. Vasculature: Atherosclerotic calcifications are demonstrated in the intracranial carotid arteries bilaterally as well as in the vertebral basilar system. Bones/joints: Unremarkable. No acute fracture. Soft tissues: Unremarkable. IMPRESSION: 1. There is moderate age related parenchymal volume loss. White matter changes are demonstrated in the subcortical, centrum semiovale and periventricular white matter consistent with chronic age related small vessel ischemic changes. 2. The degree of ventricular dilatation is normal for age and/or degree of atrophy present. 3. No acute intracranial findings. Electronically signed by: Ezio Prado On 05/09/2021 20:55:28 PM
--- NOTE | 2021-05-09 21:00 | REPVR ---
PROCEDURE INFORMATION: Exam: XR Chest Exam date and time: 05/09/2021 8:50 PM Age: 86 years old Clinical indication: Other: Altered mental status TECHNIQUE: Imaging protocol: XR of the chest. Views: 1 view. COMPARISON: CR PORTABLE CHEST X-RAY 06/02/2019 10:00 PM FINDINGS: Tubes, catheters and devices: Right-sided PICC line previously demonstrated has been removed. Lungs: Platelike atelectasis/scarring left mid lung zone remain stable. No segmental or lobar infiltrates. Pleural spaces: Unremarkable. No pleural effusion. No pneumothorax. Heart/Mediastinum: Unremarkable. No cardiomegaly. Diaphragm: Elevated left hemidiaphragm. Bones/joints: Unremarkable. IMPRESSION: No acute findings. Electronically signed by: Ezio Prado On 05/09/2021 21:00:30 PM
[2021-05-09 21:12] LABS: BASO % 0.3 % (0.0-1.0); EOS % 0.2 % (0.0-3.0); HEMATOCRIT 45.6 % (42.0-52.0); HEMOGLOBIN 14.8 g/dl (13.5-17.5); LYMPH # 0.7 10^3/uL (1.5-5.0); LYMPH % 7.6 % (24.0-44.0); MEAN CORPUSCULAR HEMOGLOBIN 30.5 pg (27.0-33.0); MEAN CORPUSCULAR HGB CONC 32.5 g/dl (32.0-36.5); MONO # 0.5 10^3/uL (0.0-0.8); MONO % 5.7 % (2.0-8.0); NEUTROPHILS # 7.9 10^3/uL (1.5-8.5); NEUTROPHILS % 85.6 % (36.0-66.0); PLATELET COUNT, AUTOMATED 258 10^3/uL (150-450); RED BLOOD COUNT 4.85 10^6/uL (4.30-6.10); WHITE BLOOD COUNT 9.3 10^3/uL (4.0-10.0)
[2021-05-09 21:45] LABS: OSMOLALITY SERUM 304 MOSM/KG (280-301)
[2021-05-09 21:51] LABS: ALT/SGPT 10 U/L (12-78); BLOOD UREA NITROGEN 19 MG/DL (7-18); CALCIUM LEVEL 9.2 MG/DL (8.8-10.2); CARBON DIOXIDE LEVEL 25 MEQ/L (21-32); CHLORIDE LEVEL 103 MEQ/L (98-107); CK-MB VALUE MASS 1.7 NG/ML (<3.6); CPK CREATINE PHOSPHOKINASE 97 U/L (39-308); CREATININE FOR GFR 1.25 MG/DL (0.70-1.30); GLUCOSE, FASTING 167 MG/DL (70-100); MB/CK RELATIVE INDEX 1.75 (< OR =4); POTASSIUM SERUM 4.3 MEQ/L (3.5-5.1); SODIUM LEVEL 139 MEQ/L (136-145)
[2021-05-09 21:52] LABS: ALBUMIN 3.6 GM/DL (3.2-5.2); BILIRUBIN,DIRECT 0.2 MG/DL (0.0-0.2); BILIRUBIN,TOTAL 0.9 MG/DL (0.2-1.0); TOTAL PROTEIN 7.2 GM/DL (6.4-8.2); TROPONIN I < 0.02 NG/ML (< 0.10)
[2021-05-09] MEDS ORDERED: cefTRIAXone SOD 1 GM in D5W MINI-BAG PLUS 50 ML IV ONE (22:40)
[2021-05-09 22:53] LABS: RSV AMPLIFICATION NEGATIVE (NEGATIVE)
[2021-05-09] MEDS ORDERED: ACETAMINOPHEN TAB 650MG DOSE (2X325MG) PO PRN (23:35)
[2021-05-09] MEDS ORDERED: MAALOX 30 ML SUSP *UDC PO PRN (23:35)
[2021-05-09] MEDS ORDERED: GLUCOSE 4GM CHEW TABLET PO PRN (23:35)
[2021-05-09] MEDS ORDERED: DEXTROSE 50% 50 ML SYRINGE IV PRN (23:35)
[2021-05-09] MEDS ORDERED: MOM 30ML SUSPENSION UDC PO PRN (23:35)
[2021-05-09] MEDS ORDERED: GLUCAGON INJ 1MG VIAL SC PRN (23:35)
--- NOTE | 2021-05-09 23:39 | HPEPDOC ---
[facility] & Physical Date of Admission May 09, 2021 Date of Service: May 09, 2021 Attending Physician: BERNADETTE FROST MD History and Physical CHIEF COMPLAINT: [86 y/o male presents with son who says he has been lethargic x1 week] HISTORY OF PRESENT ILLNESS: [This is an 86 y/o male with a pmh of NIDDM2, htn, and prostate ca who reports to the ED with his son, Balaji, who states that he has not left his bed or ate or drank much in the past week. Patient himself is pleasantly confused and oriented to person. Patient states that he does not feel sick and says he is simply tired. Son gives most of the history. Son states that his dad seems very fatigued and according to patient's , has barely left the bed. They deny fevers, vomiting, diarrhea, recent falls. ] PAST MEDICAL HISTORY: 1. [See HPI PAST SURGICAL HISTORY: 1. [Cataract removal]. 2. Acoustic neuroma gamma knife procedure. 3. [Cervical spinal fusion 4. Cystoscopy 5. Trigger finger repair]. SOCIAL HISTORY: Tobacco use:[Denies] ETOH: [Denies] Illicit drug use: [Denies] FAMILY HISTORY: Reviewed with son - none pertinent ALLERGIES: Please see below. REVIEW OF SYSTEMS: Cannot obtain accurate ros d/t mentation HOME MEDICATIONS: Please see below. PHYSICAL EXAMINATION: VITAL SIGNS: Please see below. GENERAL APPEARANCE: [This is a fatigued, frail appearing 86 y/o male. He is laying in bed and appears in no acute respiratory distress.]. HEENT: [No mass or lesion. EOMI. No scleral icterus. Nares patent. Oral mucosa dry.]. CARDIOVASCULAR: [Regular rate, rhythm. No murmurs, rubs, gallops]. LUNGS: [Good air flow appreciated b/l. No wheezing, rales, rhonchi.]. ABDOMEN: [Soft, nontender]. MUSCULOSKELETAL: [No joint deformity noted]. EXTREMITIES: [No peripheral edema. No overlying skin changes. Pulses intact.]. NEUROLOGICAL: [Speech clear. Oriented to person. No focal deficits.]. PSYCHIATRIC: [Pleasantly confused.]. LABORATORY DATA: See below. IMAGING: [Head CT: FINDINGS: Brain: There is moderate age related parenchymal volume loss. White matter changes are demonstrated in the subcortical, centrum semiovale and periventricular white matter consistent with chronic age related small vessel ischemic changes. Cerebral ventricles: The degree of ventricular dilatation is normal for age and/or degree of atrophy present. Paranasal sinuses: Visualized sinuses are unremarkable. No fluid levels. Mastoid air cells: Visualized mastoid air cells are well aerated. Vasculature: Atherosclerotic calcifications are demonstrated in the intracranial carotid arteries bilaterally as well as in the vertebral basilar system. Bones/joints: Unremarkable. No acute fracture. Soft tissues: Unremarkable. IMPRESSION: 1. There is moderate age related parenchymal volume loss. White matter changes are demonstrated in the subcortical, centrum semiovale and periventricular white matter consistent with chronic age related small vessel ischemic changes. 2. The degree of ventricular dilatation is normal for age and/or degree of atrophy present. 3. No acute intracranial findings. CXR: FINDINGS: Tubes, catheters and devices: Right-sided PICC line previously demonstrated has been removed. Lungs: Platelike atelectasis/scarring left mid lung zone remain stable. No segmental or lobar infiltrates. Pleural spaces: Unremarkable. No pleural effusion. No pneumothorax. Heart/Mediastinum: Unremarkable. No cardiomegaly. Diaphragm: Elevated left hemidiaphragm. Bones/joints: Unremarkable. IMPRESSION: No acute findings.] MICROBIOLOGY: Please see below. ASSESSMENT: [This is an 86 y/o male with a pmh of NIDDM2, htn, and prostate ca who reports to the ED with his son, Balaji, who states that he has not left his bed or ate or drank much in the past week. Patient found to have +UA in the ed.]. . PLAN: 1. [Metabolic encephalopathy - Likely 2/2 infection (UTI) - Patient has no sirs criteria, is not septic - As patient has a hx of pseudomonas uti, will begin empiric tx with cefepime - urine cx pending, can de-escalate as necessary pending results - Will give maintenance ivf d/t recent poor oral intake - Will admit to med surg for iv abx, fluids 2. DM2 - sliding scale - hypoglycemic protocol - continue asa 3. HTN - pt not on any at home meds. will monitor pressures inpatient. DVT prophylaxis - Lovenox ]. Vital Signs Vital Signs Date Time Temp Pulse Resp B/P (MAP) Pulse Ox O2 Delivery O2 Flow Rate FiO2 05/09/21 22:52 140/69 (92) 05/09/21 22:37 80 17 100 Room Air 05/09/21 19:48 97.7 Laboratory Data Labs 24H Laboratory Tests 2 05/09/21 20:08: Immature Granulocyte % (Auto) 0.6, Neutrophils (%) (Auto) 85.6H, Lymphocytes (%) (Auto) 7.6L, Monocytes (%) (Auto) 5.7, Eosinophils (%) (Auto) 0.2, Basophils (%) (Auto) 0.3, Neutrophils # (Auto) 7.9, Lymphocytes # (Auto) 0.7L, Monocytes # (Auto) 0.5, Eosinophils # (Auto) 0.0, Basophils # (Auto) 0.0, Nucleated Red Blood Cells % (auto) 0.0, Anion Gap 11, Glomerular Filtration Rate 58.0, Osmolality 304H, Lactic Acid Level 1.8, Calcium Level 9.2, Total Bilirubin 0.9, Direct Bilirubin 0.2, Aspartate Amino Transf (AST/SGOT) 11, Alanine Aminotransferase (ALT/SGPT) 10L, Alkaline Phosphatase 90, Ammonia < 10, Total Creatine Kinase 97, Creatine Kinase MB 1.7, Creatine Kinase MB Relative Index 1.75, Troponin I < 0.02, Total Protein 7.2, Albumin 3.6, Albumin/Globulin Ratio 1.0, Thyroid Stimulating Hormone (TSH) 1.070 05/09/21 21:06: Bedside Glucose ([facility]) 174H 05/09/21 21:42: Urine Color DEXTER, Urine Appearance TURBIDH, Urine pH 6.0, Urine Specific [place] 1.012, Urine Protein 2+H, Urine Glucose (UA) 1+H, Urine Ketones 2+H, Urine Blood 2+H, Urine Nitrite NEGATIVE, Urine Bilirubin NEGATIVE, Urine Urobilinogen 0.2, Urine Leukocyte Esterase 3+H, Urine WBC (Auto) TNTCH, Urine RBC (Auto) 47H, Urine Hyaline Casts (Auto) 47, Urine Bacteria (Auto) 1+H, Urine Squamous Epithelial Cells 0, Urine Mucus (Auto) SMALL, Urine Sperm (Auto) 05/09/21 22:07: Coronavirus (COVID-19)(PCR) NEGATIVE, Influenza Type A (RT-PCR) NEGATIVE, Influenza Type B (RT-PCR) NEGATIVE, Respiratory Syncytial Virus (PCR) NEGATIVE CBC/BMP Laboratory Tests 05/09/21 20:08 Microbiology Microbiology 05/09/21 Urine Culture, Received Pending Home Medications Scheduled Aspirin (Aspirin) 325 Mg Tablet, 325 MG PO DAILY unsure if pt is still taking Docusate Sodium (Docusate Sodium) 100 Mg Capsule, 100 MG PO BID Finasteride (Finasteride) 5 Mg Tab, 5 MG PO DAILY Folic Acid (Folic Acid) 1 Mg Tab, 1 MG PO DAILY Metformin HCl (Metformin HCl) 500 Mg Tablet, 500 MG PO QAM Metformin HCl (Metformin HCl) 500 Mg Tablet, 1,000 MG PO QPM Silodosin (Rapaflo) 8 Mg Capsule, 8 MG PO DAILY Miscellaneous Medications [med rec comment] used pt external med history for med rec. called to verify and she said she was going to bed. call back in the morning and hung up phone. Allergies Coded Allergies: Sulfa (Sulfonamide Antibiotics) (Verified Allergy, Severe, MOUTH SWELLING, 06/02/19) ciprofloxacin (Verified Allergy, Severe, JOINT PAIN/SWELLING, 06/02/19) A-FIB/CHADSVASC A-FIB History Current/History of A-Fib/PAF?: No Attending Note Attending Note TIME OF SERVICE 1152PM is an 86 yr M old w a PMH NIDDM, essential HTN, Prostate cancer, & UTIs who was brought to the ER by his for evaluation of lethargy. At the time of my evaluation the patient was alert but couldn't explain why he came to the hospital. PE: vitals reviewed/ he has a slim build and temporal wasting /he is A&O to person only Admitting diagnoses: #Metabolic Encephalopathy # UTI Plan: treat UTI rest per ANDRAE Umana's H&P ANGELIA UMANA May 09, 2021 23:39 BERNADETTE FROST MD May 10, 2021 00:18
[2021-05-10 00:14] VITALS: BP 138/85
[2021-05-10] MEDS ORDERED: med rec comment (00:50)
[2021-05-10] MEDS: NS 1,000 ML IV SCH ×4 (01:08→20:24)
[2021-05-10] MEDS: CEFEPIME HCL 2 GM in D5W MINI-BAG PLUS 50 ML IV SCH ×2 (05:13→17:21)
[2021-05-10 06:00] VITALS: BP 161/83
[2021-05-10 06:45] LABS: HEMATOCRIT 41.7 % (42.0-52.0); HEMOGLOBIN 13.6 g/dl (13.5-17.5); MEAN CORPUSCULAR HEMOGLOBIN 30.4 pg (27.0-33.0); MEAN CORPUSCULAR HGB CONC 32.6 g/dl (32.0-36.5); MEAN CORPUSCULAR VOLUME 93.1 fl (80.0-96.0); PLATELET COUNT, AUTOMATED 229 10^3/uL (150-450); RED BLOOD COUNT 4.48 10^6/uL (4.30-6.10); WHITE BLOOD COUNT 6.3 10^3/uL (4.0-10.0)
[2021-05-10 07:06] LABS: ALBUMIN 3.2 GM/DL (3.2-5.2); ALT/SGPT 8 U/L (12-78); BILIRUBIN,TOTAL 0.8 MG/DL (0.2-1.0); BLOOD UREA NITROGEN 23 MG/DL (7-18); CALCIUM LEVEL 8.4 MG/DL (8.8-10.2); CARBON DIOXIDE LEVEL 31 MEQ/L (21-32); CHLORIDE LEVEL 104 MEQ/L (98-107); CREATININE FOR GFR 1.14 MG/DL (0.70-1.30); GLOMERULAR FILTRATION RATE > 60.0 (>35); GLUCOSE, FASTING 141 MG/DL (70-100); MAGNESIUM LEVEL 1.9 MG/DL (1.8-2.4); POTASSIUM SERUM 3.9 MEQ/L (3.5-5.1); SODIUM LEVEL 139 MEQ/L (136-145); TOTAL PROTEIN 6.5 GM/DL (6.4-8.2)
[2021-05-10] MEDS: ASPIRIN 325 MG TAB PO SCH (09:23)
[2021-05-10] MEDS: DOCUSATE SODIUM 100MG CAPSULE PO SCH ×2 (09:23→20:24)
[2021-05-10] MEDS: FOLIC ACID 1 MG TAB PO SCH (09:24)
[2021-05-10] MEDS: FINASTERIDE 5 MG TAB PO SCH (09:25)
[2021-05-10] MEDS: HumaLOG INSULIN (NovoLOG) PER UNIT SC SCH ×4 (09:25→20:17)
[2021-05-10] MEDS: ENOXAPARIN 40MG/0.4ML SYRINGE (J1650 PER 10MG) SC SCH (09:26)
--- NOTE | 2021-05-10 12:31 | IPN ---
PROGRESS NOTE DATE: 05/10/2021 SUBJECTIVE: The patient denies fever or chills overnight. Denies dysuria, urgency, frequency, flank pain, nausea, vomiting, or abdominal pain. He is confused. Despite blood pressure of 161 systolic, he denies headache, chest pain, pressure, tightness, lightheadedness, or dizziness. Per RN, urine retention 450ml pvr. OBJECTIVE: VITAL SIGNS: Temperature 97.6, pulse 77, respiratory rate 16, blood pressure 161/83, 98% on room air. GENERAL: The patient is awake, alert, and oriented to himself only. Disoriented to time and place. In no distress. Speaks in full sentences. HEENT: No JVD. No thyromegaly. No cervical lymphadenopathy. LUNGS: Clear to auscultation. No wheezing, rales, or rhonchi. HEART: S1, S2. Sinus rhythm. ABDOMEN: Soft, nontender, and nondistended with positive bowel sounds. EXTREMITIES: No any pitting edema. DIAGNOSTIC STUDIES: Laboratory data, imaging studies, and microbiology have been reviewed. ASSESSMENT: An 86-year-old male with history of diabetes, hypertension, and prostate cancer who presented with altered mental status for one week, admitted for a urinary tract infection (UTI). IMPRESSION: 1. Acute encephalopathy secondary to urinary tract infection. 2. Urinary tract infection. 3. History of acoustic neuroma with gamma knife procedure. 4. Cervical spine fusion. 5. Chronic urine retention/BPH History of cystoscopy. 6. History of diabetes, hypertension, and prostate cancer. PLAN: The patient is continued on intravenous (IV) antibiotics. Monitor for diarrhea or Clostridium difficile infection. Await urine culture and de-escalate antibiotics. Continue with IV fluids for now. Monitor for fluid overload. Physical therapy (PT) and occupational therapy (OT) and activity as tolerated. Ambulate out of bed to the bedside for meals. q6hrs straight cath for urine retention>400.continue proscar. MTDD
[2021-05-10 14:00] VITALS: BP 110/80
[2021-05-10 22:00] VITALS: BP 153/76
[2021-05-11] MEDS: NS 1,000 ML IV SCH (04:12)
[2021-05-11] MEDS: CEFEPIME HCL 2 GM in D5W MINI-BAG PLUS 50 ML IV SCH (04:48)
[2021-05-11 06:00] VITALS: BP 153/82
[2021-05-11] MEDS: HumaLOG INSULIN (NovoLOG) PER UNIT SC SCH ×4 (07:37→21:04)
[2021-05-11] MEDS: ASPIRIN 325 MG TAB PO SCH (07:38)
[2021-05-11] MEDS: FOLIC ACID 1 MG TAB PO SCH (07:38)
[2021-05-11] MEDS: ENOXAPARIN 40MG/0.4ML SYRINGE (J1650 PER 10MG) SC SCH (07:38)
[2021-05-11] MEDS: DOCUSATE SODIUM 100MG CAPSULE PO SCH ×2 (07:38→21:36)
[2021-05-11] MEDS: FINASTERIDE 5 MG TAB PO SCH (07:39)
--- NOTE | 2021-05-11 08:46 | ECGEPIP ---
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
--- NOTE | 2021-05-11 09:41 | IPNPDOC ---
Date Seen The patient was seen on 05/11/21. Progress Note addendum to progress note: allergy to cipro E faecalis UTI -doxycycline 100 mg bid -dc cefepime. VS, I&O, 24H, Fishbone Vital Signs/I&O Vital Signs Date Time Temp Pulse Resp B/P (MAP) Pulse Ox O2 Delivery O2 Flow Rate FiO2 05/11/21 06:00 97.6 99 18 153/82 (105) 93 Room Air I&O- Last 24 Hours up to 6 AM 05/11/21 06:00 Intake Total 2940 ml Output Total 775 ml Balance 2165 ml Laboratory Data 24H LABS Laboratory Tests 2 05/10/21 11:51: Bedside Glucose (Misc Panel) 195H 05/10/21 17:08: Bedside Glucose (Misc Panel) 150H 05/10/21 19:53: Bedside Glucose (Misc Panel) 174H 05/11/21 05:15: Bedside Glucose (Misc Panel) 226H Microbiology Microbiology 05/09/21 Urine Culture - Final, Complete Enterococcus Faecalis SONIYA GONCALVES MD May 11, 2021 09:41
--- NOTE | 2021-05-11 12:36 | IPN ---
PROGRESS NOTE DATE: 05/11/2021 SUBJECTIVE: Patient is disoriented, does not even know his name today. He is cooperative, but had refused Covarrubias catheter placement yesterday, had to be straight cath'd due to urine retention with bladder scan showing 450 mL of urine post void residual. Afebrile overnight. No complaints of chills, dysuria, urgency, frequency, flank pain, nausea or vomiting. Tolerating his diet well without shortness of breath. PHYSICAL EXAMINATION: VITAL SIGNS: Temperature 97.6, pulse 99, respiratory rate 18, blood pressure 153/82, 93% on room air. GENERAL: Patient is disoriented, unable to state his name, where he is or what the date is today. He is in no distress. HEENT: No JVD. No thyromegaly. No cervical lymphadenopathy. LUNGS: Clear to auscultation. No wheezing, rales or rhonchi. HEART: S1, S2, sinus rhythm. ABDOMEN: Soft, nontender, non-distended. Positive bowel sounds. EXTREMITIES: No cyanosis, clubbing or pitting edema. LABORATORY DATA/MICROBIOLOGY: Have been reviewed. ASSESSMENT AND PLAN: This is an 86-year-old male with history of diabetes, hypertension, prostate cancer, who presented with altered mental status and found to have E. Faecalis UTI sensitive to Cipro. IMPRESSION: 1. Acute encephalopathy secondary to UTI. 2. E. Faecalis UTI. 3. History of acoustic neuroma with gamma knife procedure. 4. History of cervical spine fusion. 5. History of chronic urine retention, BPH and history of cystoscopy: Now requiring Covarrubias catheter. 6. History of diabetes, hypertension, prostate cancer. PLAN: Discontinue the I.V. antibiotics. Start on Cipro. Renal function is back to normal. PT/OT, ambulating out of bed as needed. Covarrubias catheter for urine retention. Continue on Proscar. MTDD
[2021-05-11] MEDS: DOXYCYCLINE HYCLATE 100MG TABLET PO SCH ×2 (12:46→21:36)
[2021-05-11 14:00] VITALS: BP 121/64
[2021-05-11 15:02] LABS: HEMOGLOBIN 12.8 g/dl (13.5-17.5); MEAN CORPUSCULAR HGB CONC 32.8 g/dl (32.0-36.5); MEAN CORPUSCULAR VOLUME 94.4 fl (80.0-96.0); PLATELET COUNT, AUTOMATED 188 10^3/uL (150-450); RED BLOOD COUNT 4.13 10^6/uL (4.30-6.10); WHITE BLOOD COUNT 8.1 10^3/uL (4.0-10.0)
[2021-05-11 15:25] LABS: BLOOD UREA NITROGEN 18 MG/DL (7-18); CALCIUM LEVEL 8.1 MG/DL (8.8-10.2); CARBON DIOXIDE LEVEL 27 MEQ/L (21-32); CHLORIDE LEVEL 106 MEQ/L (98-107); CREATININE FOR GFR 0.92 MG/DL (0.70-1.30); GLOMERULAR FILTRATION RATE > 60.0 (>35); GLUCOSE, FASTING 153 MG/DL (70-100); POTASSIUM SERUM 3.6 MEQ/L (3.5-5.1); SODIUM LEVEL 142 MEQ/L (136-145)
[2021-05-11 22:00] VITALS: BP 151/80
[2021-05-12 06:00] VITALS: BP 159/84
[2021-05-12] MEDS ORDERED: BACI1CAP PO (07:21)
[2021-05-12] MEDS ORDERED: DOXY100T PO (07:21)
[2021-05-12 07:39] LABS: HEMATOCRIT 39.4 % (42.0-52.0); HEMOGLOBIN 13.1 g/dl (13.5-17.5); MEAN CORPUSCULAR HEMOGLOBIN 30.8 pg (27.0-33.0); MEAN CORPUSCULAR HGB CONC 33.2 g/dl (32.0-36.5); MEAN CORPUSCULAR VOLUME 92.5 fl (80.0-96.0); PLATELET COUNT, AUTOMATED 184 10^3/uL (150-450); RED BLOOD COUNT 4.26 10^6/uL (4.30-6.10); WHITE BLOOD COUNT 7.3 10^3/uL (4.0-10.0)
[2021-05-12 07:57] LABS: BLOOD UREA NITROGEN 16 MG/DL (7-18); CALCIUM LEVEL 7.7 MG/DL (8.8-10.2); CARBON DIOXIDE LEVEL 28 MEQ/L (21-32); CHLORIDE LEVEL 103 MEQ/L (98-107); CREATININE FOR GFR 0.77 MG/DL (0.70-1.30); GLOMERULAR FILTRATION RATE > 60.0 (>35); GLUCOSE, FASTING 130 MG/DL (70-100); POTASSIUM SERUM 3.6 MEQ/L (3.5-5.1); SODIUM LEVEL 138 MEQ/L (136-145)
[2021-05-12] MEDS: HumaLOG INSULIN (NovoLOG) PER UNIT SC SCH ×4 (08:47→20:34)
[2021-05-12] MEDS ORDERED: DOCUSATE SODIUM 100MG CAPSULE PO SCH (09:00)
[2021-05-12] MEDS ORDERED: amLODIPine 5 MG TAB PO ONE (11:00)
[2021-05-12] MEDS: DOCUSATE SODIUM 100MG CAPSULE PO SCH ×2 (12:25→20:34)
[2021-05-12] MEDS: ASPIRIN 325 MG TAB PO SCH (12:25)
[2021-05-12] MEDS: FOLIC ACID 1 MG TAB PO SCH (12:25)
[2021-05-12] MEDS: ENOXAPARIN 40MG/0.4ML SYRINGE (J1650 PER 10MG) SC SCH (12:26)
[2021-05-12] MEDS: DOXYCYCLINE HYCLATE 100MG TABLET PO SCH ×2 (12:26→20:34)
[2021-05-12] MEDS: FINASTERIDE 5 MG TAB PO SCH (12:26)
[2021-05-12 16:00] VITALS: BP 146/87
[2021-05-12] MEDS: metFORMIN (GLUCOPHAGE) 500MG TAB PO SCH (18:16)
[2021-05-12 22:00] VITALS: BP 147/79
[2021-05-13 06:00] VITALS: BP 160/90
[2021-05-13 06:08] LABS: HEMATOCRIT 41.2 % (42.0-52.0); HEMOGLOBIN 13.6 g/dl (13.5-17.5); MEAN CORPUSCULAR HEMOGLOBIN 30.5 pg (27.0-33.0); MEAN CORPUSCULAR VOLUME 92.4 fl (80.0-96.0); PLATELET COUNT, AUTOMATED 198 10^3/uL (150-450); RED BLOOD COUNT 4.46 10^6/uL (4.30-6.10); WHITE BLOOD COUNT 6.8 10^3/uL (4.0-10.0)
[2021-05-13 06:26] LABS: BLOOD UREA NITROGEN 20 MG/DL (7-18); CALCIUM LEVEL 8.6 MG/DL (8.8-10.2); CARBON DIOXIDE LEVEL 27 MEQ/L (21-32); CHLORIDE LEVEL 107 MEQ/L (98-107); CREATININE FOR GFR 0.69 MG/DL (0.70-1.30); GLOMERULAR FILTRATION RATE > 60.0 (>35); GLUCOSE, FASTING 144 MG/DL (70-100); POTASSIUM SERUM 3.7 MEQ/L (3.5-5.1); SODIUM LEVEL 140 MEQ/L (136-145)
[2021-05-13] MEDS ORDERED: metFORMIN (GLUCOPHAGE) 500MG TAB PO SCH (08:00)
[2021-05-13] MEDS: FOLIC ACID 1 MG TAB PO SCH (08:17)
[2021-05-13] MEDS: DOCUSATE SODIUM 100MG CAPSULE PO SCH ×2 (08:17→20:22)
[2021-05-13] MEDS: FINASTERIDE 5 MG TAB PO SCH (08:17)
[2021-05-13] MEDS: DOXYCYCLINE HYCLATE 100MG TABLET PO SCH (08:17)
[2021-05-13] MEDS: HumaLOG INSULIN (NovoLOG) PER UNIT SC SCH ×4 (08:17→21:00)
[2021-05-13] MEDS: ENOXAPARIN 40MG/0.4ML SYRINGE (J1650 PER 10MG) SC SCH (08:18)
[2021-05-13] MEDS: ASPIRIN 325 MG TAB PO SCH (08:18)
[2021-05-13] MEDS ORDERED: amLODIPine 5 MG TAB PO SCH (09:00)
--- NOTE | 2021-05-13 10:57 | IPN ---
PROGRESS NOTE DATE: 05/12/2021 SUBJECTIVE: Patient is disoriented and is not able to state his name or where he is. He has no new complaints, but had significant urine retention yesterday requiring Covarrubias catheter placement. No fever or chills, no shortness of breath this morning. Patient is unable to care for himself at home and lives alone and will need placement. RN has noted coughing when he eats currently awaiting swallow evaluation today to rule out aspiration. OBJECTIVE: Vital signs: Temperature 98.4, pulse 94, respiratory rate 18, blood pressure 159/84, 93% on room air. General: Patient is disoriented to his name, place and time with advanced dementia, limited answers to review of systems. Patient is in no distress sleeping supine. HEENT: Dry mucous membranes with chapped lips. Patient has no pallor, cyanosis, icterus or jaundice. Neck: No JVD, no thyromegaly. No carotid bruit. Lungs: No stridor. Lungs are clear to auscultation, no wheezes or rales. Heart: S1 and S2 sinus rhythm. Abdomen: Soft, nontender, nondistended, Covarrubias catheter in place with yellow urine in the bag. Extremities: No cyanosis or clubbing, no pitting edema. LABORATORY DATA: White count 7.3, hemoglobin 13, hematocrit 39, platelet count 184. Sodium 138, potassium 3.6, chloride 103, bicarb 28, BUN 16, creatinine 0.77, glucose 130. Microbiology: Enterococcus faecalis sensitive to ampicillin, ciprofloxacin, Levaquin and Zyvox. ASSESSMENT: This is an 86-year-old male who lives alone with advanced dementia progressively worsening now unable to state his name or where he is, history of prostate cancer, diabetes, hypertension admitted due to acute encephalopathy, found to have E. faecalis urinary tract infection sensitive to CIPRO, but patient is allergic, currently on Augmentin. IMPRESSIONS/PLANS: 1. Acute encephalopathy secondary to urinary tract infection in the setting of chronic dementia: Patient is unable to care for self, unable to do activities of daily living. He is currently being evaluated by PT and OT, but will most likely need placement unless his son can take him and can provide 24/7 care. He is currently requiring a Covarrubias catheter secondary to urinary retention that was noted during this hospital stay. 2. Enterococcus faecalis urinary tract infection present on hospital admission with subsequent acute encephalopathy which has improved, but has chronic dementia which is limiting his ability to take care of himself and perform ADLs: At this time patient is currently on Augmentin due to allergy to CIPROFLOXACIN. He is status post cefepime on admission, is afebrile, no white count. 3. Chronic urinary retention, BPH, history of cystoscopy: Now requiring Covarrubias catheter. We have attempted to self cath him, but he did not give permission due to increasing discomfort therefore Covarrubias catheter was placed yesterday now with improved discomfort, not complaining of suprapubic fullness anymore. Patient is unable to perform ADLs and unlikely to be able to manage his Covarrubias catheter by himself at home. He has significant worsening advanced dementia with acute encephalopathy and not safe for discharge home alone. Patient's son had indicated that they do not want detention placement therefore family will need to be aware that he will most likely need 24/7 care secondary to need to empty out his Covarrubias catheter. 4. Chronic dementia currently worsening: Defer to the family to discuss options of detention placement or home with 24/7 care. 5. 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 6. History of cervical spine fusion: Chronic, not complaining of any acute issues. 7. Diabetes: Stable. 8. Hypertension, uncontrolled: Currently on no medications. We may give low dose Norvasc. 9. Dysphagia: Awaiting swallow evaluation to rule out aspiration. MTDD
[2021-05-13] MEDS ORDERED: AMLO1TAB24 PO (11:03)
--- NOTE | 2021-05-13 13:10 | REPVR ---
PROCEDURE INFORMATION: Exam: CT Head Without Contrast Exam date and time: 05/13/2021 12:33 PM Age: 86 years old Clinical indication: Other: AMS, difficulty speaking TECHNIQUE: Imaging protocol: Computed tomography of the head without contrast. Radiation optimization: All CT scans at this facility use at least one of these dose optimization techniques: automated exposure control; mA and/or kV adjustment per patient size (includes targeted exams where dose is matched to clinical indication); or iterative reconstruction. COMPARISON: CT Head without contrast 05/09/2021 8:20 PM FINDINGS: Brain: There is no acute intracranial hemorrhage, cerebral edema, or midline shift. Chronic microvascular ischemic changes are seen in the periventricular white matter. There are chronic lacunar infarcts noted within the bilateral basal ganglia. Age-related cerebral and cerebellar volume loss is present. Cerebral ventricles: Moderate ex vacuo dilation of the ventricles is noted. Paranasal sinuses: There is no acute sinusitis. Mastoid air cells: The mastoid air cells are clear. Orbital cavity: The included orbital structures are unremarkable. Vasculature: Atherosclerotic calcifications are seen involving the cavernous carotid arteries. Bones/joints: No acute fracture. Soft tissues: Unremarkable. IMPRESSION: 1. No acute intracranial abnormality. 2. Atrophy and chronic deep white matter ischemic changes. 3. [place] Stroke Program Early CT Score (ASPECTS) = 10 Electronically signed by: Christos Bay On 05/13/2021 13:09:44 PM
[2021-05-13 14:11] VITALS: BP 76/50
[2021-05-13 14:20] VITALS: BP 110/78
[2021-05-13] MEDS: AMPICILLIN SOD 2 GM in D5W MINI-BAG PLUS 100 ML IV SCH ×2 (14:54→20:11)
[2021-05-13] MEDS: metFORMIN (GLUCOPHAGE) 500MG TAB PO SCH (18:00)
--- NOTE | 2021-05-13 19:51 | IPNPDOC ---
Subjective Date Seen The patient was seen on 05/13/21. Subjective Chief Complaint/HPI Mr. Recio is an 86 year old male with NIDDM2, hypertension, and prostate cancer who is here for metabolic encephalopathy 2/2 Enterococcus UTI. This morning, he was very hard of hearing and did not understand what I was saying. He had trouble following commands. I spoke with the nurse and we went to see the patient together. We communicated by writing on paper. Patient was not able to say his name or vocally say anything which was new. Ordered for CT head which was negative. Ordered for MRI brain. Objective Physical Examination General Exam: Positive: Alert, Cooperative Eye Exam: Negative: Sclera icteric Chest Exam: Positive: Clear to auscultation Heart Exam: Positive: Rate Normal, Regular Rhythm Abdomen Exam: Positive: Normal bowel sounds, Soft; Negative: Tenderness Extremity Exam: Negative: Edema Neuro Exam: Negative: Normal Speech Assessment /Plan Assessment Mr. Recio is an 86 year old male with NIDDM2, hypertension, and prostate cancer who is here for metabolic encephalopathy 2/2 Enterococcus UTI. This morning, he was cognitively worse. CT head was negative. Ordered for MRI to look for CVA. Otherwise, will switch antibiotics since he was on improving on doxycycline. Enterococcus was penicillin sensitive, starting patient on ampicillin. Plan/VTE VTE Prophylaxis Ordered?: Yes Plan 1. Metabolic encephalopathy 2/2 enterococcus UTI -This morning, he had an acute change and was not speaking -CT head negative -MRI to rule out stroke -Place patient on tele, he had a vasovagal event this afternoon -Switch antibiotic from doxycycline to ampicillin since enterococcus was penicillin sensitive 2. Vasovagal event -Around 2PM on 05/13/21 patient's blood pressure dropped to 76/50 while sitting. -Patient laid in bed and quickly recovered -Placed on telemetry 3. Enterococcus UTI -Switched from doxycycline to ampicillin as it is penicillin sensitive 4. Chronic urinary retention 2/2 BPH -Covarrubias catheter -Patient will need to follow up outpatient with urology 5. Worsening dementia -Patient will either need 24/7 care or placement 6. History of acoustic neuroma s/p gamma knife procedure -Patient is hard of hearing 7. Diabetes mellitus -On Metformin 8. Hypertension -Continue amlodipine 9. Dysphagia -ST consulted, recommendations appreciated 10. DVT ppx -Lovenox Disposition: Pending clinical improvement and MRI results VS, I&O, 24H, Anne Vital Signs/I&O Vital Signs Date Time Temp Pulse Resp B/P (MAP) Pulse Ox O2 Delivery O2 Flow Rate FiO2 05/13/21 14:20 76 110/78 (89) 05/13/21 14:11 94 Room Air 05/13/21 14:00 97.9 15 I&O- Last 24 Hours up to 6 AM 05/13/21 06:00 Intake Total 460 ml Output Total 1450 ml Balance -990 ml Laboratory Data 24H LABS Laboratory Tests 2 05/12/21 20:05: Bedside Glucose (Misc Panel) 302H 05/13/21 05:29: Nucleated Red Blood Cells % (auto) 0.0, Anion Gap 6L, Glomerular Filtration Rate > 60.0, Calcium Level 8.6L 05/13/21 13:01: Bedside Glucose (Misc Panel) 228H 05/13/21 14:07: Bedside Glucose (Misc Panel) 221H 05/13/21 16:51: Bedside Glucose (Misc Panel) 192H CBC/BMP Laboratory Tests 05/13/21 05:29 Microbiology Microbiology 05/09/21 Urine Culture - Final, Complete Enterococcus Faecalis DAVID MCKEE DO May 13, 2021 19:51
[2021-05-13 22:00] VITALS: BP 166/91
--- NOTE | 2021-05-13 22:46 | REPVR ---
PROCEDURE INFORMATION: Exam: MR Head Without Contrast Exam date and time: 05/13/2021 9:33 PM Age: 86 years old Clinical indication: Altered mental status/memory loss; Confusion or disorientation; Additional info: AMS, difficulty speaking/following commands TECHNIQUE: Imaging protocol: MR of the head without contrast. COMPARISON: 1. CT Head without contrast 2021-05-13 12:[address] Head without contrast 2021-05-09 20:20 FINDINGS: Brain: 11 mm acute infarct in the anteromedial left thalamus. 0.8 cm acute right precentral gyrus subcortical and deep white matter lacunar infarct. Small subacute left putaminal/skelton radiata lacunar infarct. Moderate diffuse cerebral volume loss and mild chronic FLAIR hyperintense cerebral white matter disease. FLAIR signal corresponding to the recent infarcts. Chronic left thalamic lacunar infarct. No midline shift, mass, fluid collection, or evidence of acute hemorrhage. Cerebral ventricles: Ventricles are mildly enlarged diffusely, likely from central volume loss, communicating hydrocephalus not excluded. Bones/joints: Unremarkable. Paranasal sinuses: Normal as visualized. No acute sinusitis. Mastoid air cells: Normal as visualized. No mastoid effusion. Orbital cavity: Unremarkable. Soft tissues: Unremarkable. IMPRESSION: 1. 11 mm acute infarct in the anteromedial left thalamus. 0.8 cm acute right precentral gyrus subcortical and deep white matter lacunar infarct. Small subacute left putaminal/skelton radiata lacunar infarct. 2. Ventricles are mildly enlarged diffusely, likely from central volume loss, communicating hydrocephalus not excluded. Electronically signed by: Dhruv Ram On 05/13/2021 22:45:39 PM
--- NOTE | 2021-05-14 00:38 | IPNPDOC ---
Text Note Date of Service The patient was seen on 05/14/21. NOTE I was informed by RN Barb that the patient's brain CT scan results were up loaded this evening. #CVAs affecting multiple territories Per 's notes the patient suddenly developed hearing loss earlier on yesterday; I am not sure what time the symptoms started Per Chart review the patient has had a drop in his BP as low as 76/50 during the day. The most recent SBPs is in the 110s Plan: bc drop in BP can cause watershed injury will start IVF/ ask RNs to check vitals Q4H/ Neurochecks Q4H / start statin / f/u lipid panel A1C, carotid US, Echo & hypercoag work-up / f/u repeat CT to r/o hemorrhagic conversion / will ask to consider consulting Neurology VS,Anne, I+O VS, Anne, I+O Laboratory Tests 05/13/21 05:29 Vital Signs Date Time Temp Pulse Resp B/P (MAP) Pulse Ox O2 Delivery O2 Flow Rate FiO2 05/13/21 14:20 76 110/78 (89) 05/13/21 14:11 94 Room Air 05/13/21 14:00 97.9 15 I&O- Last 24 Hours up to 6 AM 05/14/21 06:00 Intake Total 240 ml Output Total 350 ml Balance -110 ml BERNADETTE FROST MD May 14, 2021 00:38
[2021-05-14] MEDS: NS 1,000 ML IV SCH ×3 (00:46→16:59)
[2021-05-14] MEDS: AMPICILLIN SOD 2 GM in D5W MINI-BAG PLUS 100 ML IV SCH ×4 (02:56→21:08)
--- NOTE | 2021-05-14 04:55 | REPVR ---
PROCEDURE INFORMATION: Exam: US Duplex Bilateral Extracranial Arteries Exam date and time: 05/14/2021 2:54 AM Age: 86 years old Clinical indication: Alteration of consciousness; Other: CVA TECHNIQUE: Imaging protocol: Real-time Duplex ultrasound scan of the bilateral carotid and vertebral arteries combining snyder scale, color Doppler and spectral waveform analysis. Bilateral exam. COMPARISON: CT Head without contrast 05/13/2021 12:32 PM FINDINGS: Right common carotid artery: Mild scattered mural calcifications seen in the right CCA with peak systolic velocities of 53.1 cm/s, 79.2 cm/s and 66.8 cm/s in the proximal, mid and distal CCA is respectively. Right internal carotid artery: Mural irregularity and partially calcified plaque seen in the right carotid bulb. Peak systolic velocities in the right ICA measures 43.3 cm/s, 34.7 cm/s and 43.3 cm/s in the proximal, mid and distal ICAs respectively. Right ICA/CCA ratio: The right ICA to CCA ratio measures 0.55 Right external carotid artery: Calcified plaque seen at the origin of the right ECA with peak systolic velocities of 61.7 cm/s. Right vertebral artery: Antegrade flow seen in the right vertebral artery with peak systolic velocity of 43.7 cm/s. Left common carotid artery: Mild scattered mural calcifications seen in left CCA with peak systolic velocities of 121.2 cm/s, 97.6 cm/s and 86.7 cm/s in the proximal, mid and distal CCA is respectively. Left internal carotid artery: The left carotid bulb is patent with peak systolic velocity of 79.9 cm/s. Few small calcified plaque seen in the left ICA with Peak systolic velocities in the left ICA measures 59.1, 53.0 and 61.7 cm/s in the proximal, mid and distal ICAs respectively. Left ICA/CCA ratio: The left ICA to CCA ratio measures 0.51 Left external carotid artery: Calcified plaque seen at the proximal left ECA with peak systolic velocities of 64.3 cm/s. Left vertebral artery: Antegrade flow seen in the left vertebral artery with peak systolic velocity of 61.4 cm/s. IMPRESSION: 1. No hemodynamically significant stenosis in the right or left ICAs. 2. Small scattered calcified plaques most pronounced in the right carotid bulb extending to the proximal right ECA and in the proximal left ECA resulting in less than 50% stenosis. 3. Increased velocities in the left CCA as compared to the right particularly at the origin could be secondary to stenosis at the origin/ostium of the left CCA. If clinically warranted, CT angiogram or MR angiogram may be considered. REFERENCES: SRU CRITERIA. The degree of internal carotid artery stenosis is based on criteria defined by the Society of Radiologists in Ultrasound (SRU). Normal is no stenosis. Mild is less than 50% stenosis. Moderate is 50-69% stenosis. Severe is greater than 69% stenosis to near occlusion. Near occlusion is a markedly narrowed lumen. Total occlusion is no detectable patent lumen. Electronically signed by: Dionisio Harrington On 05/14/2021 04:54:56 AM
[2021-05-14 06:00] VITALS: BP 166/88
[2021-05-14 06:02] LABS: HEMATOCRIT 39.2 % (42.0-52.0); HEMOGLOBIN 13.2 g/dl (13.5-17.5); MEAN CORPUSCULAR HEMOGLOBIN 30.9 pg (27.0-33.0); MEAN CORPUSCULAR HGB CONC 33.7 g/dl (32.0-36.5); MEAN CORPUSCULAR VOLUME 91.8 fl (80.0-96.0); PLATELET COUNT, AUTOMATED 201 10^3/uL (150-450); RED BLOOD COUNT 4.27 10^6/uL (4.30-6.10); WHITE BLOOD COUNT 6.8 10^3/uL (4.0-10.0)
[2021-05-14 06:21] LABS: HEMOGLOBIN A1c 7.1 %
[2021-05-14 06:29] LABS: BLOOD UREA NITROGEN 17 MG/DL (7-18); C REACTIVE PROTEIN QUANTITATIV 9.34 MG/DL (0.00-0.30); CALCIUM LEVEL 8.5 MG/DL (8.8-10.2); CARBON DIOXIDE LEVEL 31 MEQ/L (21-32); CHLORIDE LEVEL 104 MEQ/L (98-107); CHOLESTEROL LEVEL 209 MG/DL (<200); CREATININE FOR GFR 0.67 MG/DL (0.70-1.30); GLOMERULAR FILTRATION RATE > 60.0 (>35); GLUCOSE, FASTING 153 MG/DL (70-100); HDL CHOLESTEROL 43 MG/DL (>40); LDL CHOLESTEROL 147 MG/DL (<100); NON-HDL-C 166 MG/DL; POTASSIUM SERUM 3.5 MEQ/L (3.5-5.1); SODIUM LEVEL 138 MEQ/L (136-145); TRIGLYCERIDES LEVEL 97 MG/DL (<150)
[2021-05-14 06:44] LABS: ERYTHROCYTE SEDIMENTATION RATE 54 mm/hr (0-20)
[2021-05-14] MEDS: HumaLOG INSULIN (NovoLOG) PER UNIT SC SCH ×4 (09:58→21:00)
[2021-05-14] MEDS: FOLIC ACID 1 MG TAB PO SCH (09:59)
[2021-05-14] MEDS: ATORVASTATIN 20 MG TAB PO SCH (09:59)
[2021-05-14] MEDS: FINASTERIDE 5 MG TAB PO SCH (09:59)
[2021-05-14] MEDS: ENOXAPARIN 40MG/0.4ML SYRINGE (J1650 PER 10MG) SC SCH (09:59)
[2021-05-14] MEDS: ASPIRIN 325 MG TAB PO SCH (09:59)
[2021-05-14] MEDS: DOCUSATE SODIUM 100MG CAPSULE PO SCH ×2 (10:00→21:00)
--- NOTE | 2021-05-14 10:10 | REPVR ---
PROCEDURE INFORMATION: Exam: CT Head Without Contrast Exam date and time: 05/14/2021 9:33 AM Age: 86 years old Clinical indication: Pain; Headache; Additional info: Subacute cvas R/O hemorrhagic converstion TECHNIQUE: Imaging protocol: Computed tomography of the head without contrast. Radiation optimization: All CT scans at this facility use at least one of these dose optimization techniques: automated exposure control; mA and/or kV adjustment per patient size (includes targeted exams where dose is matched to clinical indication); or iterative reconstruction. COMPARISON: CT Head without contrast 05/13/2021 12:32 PM FINDINGS: Brain: There is no acute intracranial hemorrhage or mass effect. Moderate diffuse volume loss is within the range of normal for patient age. There are small vessel ischemic changes within the periventricular and subcortical white matter, but the normal snyder-white matter delineation is maintained. Chronic lacunar infarcts involve the basal ganglia and left thalamus. Cerebral ventricles: Prominence of the ventricular system is commensurate with volume loss. Paranasal sinuses: Visualized sinuses are unremarkable. No fluid levels. Mastoid air cells: Visualized mastoid air cells are well aerated. Bones/joints: Unremarkable. No acute fracture. Soft tissues: Unremarkable. IMPRESSION: No acute intracranial hemorrhage or edema. Electronically signed by: Tiffanie Little On 05/14/2021 10:09:44 AM
--- NOTE | 2021-05-14 13:28 | REPVR ---
PROCEDURE INFORMATION: Exam: MRA Neck Without Contrast Exam date and time: 05/14/2021 7:21 AM Age: 86 years old Clinical indication: Abnormal findings; Abnormal mri of head; Additional info: CVA TECHNIQUE: Imaging protocol: Magnetic resonance angiography of the neck without contrast. COMPARISON: US Duplex,carotid (complete) 05/14/2021 1:44 AM FINDINGS: Right common carotid artery: No stenosis. No dissection or occlusion. Right internal carotid artery: No stenosis of the extracranial segment. No dissection or occlusion. Right external carotid artery: No stenosis. No dissection or occlusion of the origin. Right vertebral artery: No stenosis. No dissection or occlusion. Left common carotid artery: No stenosis. No dissection or occlusion. Left internal carotid artery: No stenosis of the extracranial segment. No dissection or occlusion. Left external carotid artery: No stenosis. No dissection or occlusion of the origin. Left vertebral artery: No stenosis. No dissection or occlusion. IMPRESSION: No stenosis or occlusion. REFERENCES: NASCET CRITERIA. The degree of internal carotid artery stenosis is based on NASCET criteria. Normal is no stenosis. Mild is less than 50% stenosis. Moderate is 50-69% stenosis. Severe is 70% to 99% stenosis. Total occlusion is no detectable patent lumen. Electronically signed by: April Henry On 05/14/2021 13:28:27 PM
--- NOTE | 2021-05-14 13:35 | REPVR ---
PROCEDURE INFORMATION: Exam: MRA Head Without Contrast; Arteriography Exam date and time: 05/14/2021 7:21 AM Age: 86 years old Clinical indication: Abnormal findings; Abnormal mri of head; Additional info: CVA TECHNIQUE: Imaging protocol: Magnetic resonance angiography head without contrast. Exam focused on the arteries. COMPARISON: MRI-Brain without Contrast 05/13/2021 9:33 PM FINDINGS: Limitations: The study is mildly limited due to patient motion artifact. ANTERIOR CIRCULATION: Right internal carotid artery: Intracranial segment is patent with no significant stenosis. No aneurysm. Right middle cerebral artery: No occlusion or significant stenosis. No aneurysm. Right anterior cerebral artery: No occlusion or significant stenosis. No aneurysm. Left internal carotid artery: Intracranial segment is patent with no significant stenosis. No aneurysm. Left middle cerebral artery: No occlusion or significant stenosis. No aneurysm. Left anterior cerebral artery: No occlusion or significant stenosis. No aneurysm. POSTERIOR CIRCULATION: Right vertebral artery: No occlusion or significant stenosis. No aneurysm. Left vertebral artery: No occlusion or significant stenosis. No aneurysm. Basilar artery: No occlusion or significant stenosis. No aneurysm. Right posterior cerebral artery: The proximal right posterior cerebral artery is patent. The P3 segment is poorly visualized and may be severely stenotic. Left posterior cerebral artery: The proximal left posterior cerebral artery is widely patent. The P3 segment is poorly visualized and may be severely stenotic. IMPRESSION: 1. Limited exam due to motion artifact 2. 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 Electronically signed by: Christos Bay On 05/14/2021 13:35:17 PM
[2021-05-14 14:00] VITALS: BP 160/76
--- NOTE | 2021-05-14 15:00 | IPNPDOC ---
Subjective Date Seen The patient was seen on 05/14/21. Subjective Chief Complaint/HPI Mr. Recio is an 86 year old male with NIDDM2, hypertension, and prostate cancer who is here for metabolic encephalopathy 2/2 Enterococcus UTI and found to have an acute stroke. Yesterday, he was not speaking and he could not hear us at all. We tried communicating with paper. At one point he was able to whisper a response. Overnight, MRI resulted demonstrating acute CVA at anteromedial left thalamus, right precentral gyrus, and deep white matter lacunar infarct. MRA ordered today demonstrated probable severe stenosis involving the bilateral posterior cerebral arteries. When I saw him in the morning, he was still hard of hearing and was not speaking to us. This afternoon, nurses reported that he was moving limbs and speaking stronger, although he was coughing when eating when speech therapy was working with patient. I reached out to neurology, Dr. Quintero who will see the patient. Objective Physical Examination General Exam: Positive: Cooperative Eye Exam: Negative: Sclera icteric Chest Exam: Positive: Clear to auscultation Heart Exam: Positive: Rate Normal, Regular Rhythm Abdomen Exam: Positive: Normal bowel sounds, Soft; Negative: Tenderness Extremity Exam: Negative: Edema Neuro Exam: Negative: Normal Speech Assessment /Plan Assessment Mr. Recio is an 86 year old male with NIDDM2, hypertension, and prostate cancer who is here for metabolic encephalopathy 2/2 Enterococcus UTI. Enterococcus was penicillin sensitive, starting patient on ampicillin. Otherwise, patient was found to have an acute CVA at anteromedial left thalamus, right precentral gyrus, and deep white matter lacunar infarct. He had subacute infarcts in the left putaminal/skelton radiata lacunar infarct. He was also found to have probable severe stenosis involving the bilateral posterior cerebral arteries. Neurology was consulted, recommendations appreciated. Patient will be allowed permissive hypertension between 140 to 180. Full dose aspirin will be switched to DAPT. Patient will be started on atorvastatin. Echocardiogram results pending. No arrhythmia seen on telemetry at this time. Plan/VTE VTE Prophylaxis Ordered?: Yes Plan 1. Metabolic encephalopathy 2/2 Enterococcus UTI -Being treated with ampicillin day 2. 2. 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 He also has subacute infarcts in the left putaminal/skelton radiata. -LDL 147, HbA1c 7.1 -Pending echocardiogram results -No arrhythmia seen on telemetry -Neurology consulted, recommendations appreciated -Switch full dose aspirin to baby aspirin plus clopidogrel -Start atorvastatin -Allow for 48hours of permissive hypertension 3. Chronic urinary retention 2/2 BPH -Covarrubias catheter -Patient will need to follow up outpatient with urology 4. Worsening dementia -Patient will either need 24/7 care or placement 5. History of acoustic neuroma s/p gamma knife procedure -Patient is hard of hearing 6. Diabetes mellitus -On sliding scale insulin 8. Hypertension -Hold amlodipine to allow for permissive hypertension 9. Dysphagia -ST consulted, recommendations appreciated 10. DVT ppx -Lovenox Disposition: Patient requires 48 hours of permissive hypertension. Anticipate ARU afterwards. VS, I&O, 24H, Fishbone Vital Signs/I&O Vital Signs Date Time Temp Pulse Resp B/P (MAP) Pulse Ox O2 Delivery O2 Flow Rate FiO2 05/14/21 14:00 97.7 70 20 160/76 (104) 96 Room Air I&O- Last 24 Hours up to 6 AM 05/14/21 06:00 Intake Total 1190 ml Output Total 600 ml Balance 590 ml Laboratory Data 24H LABS Laboratory Tests 2 05/13/21 16:51: Bedside Glucose (Misc Panel) 192H 05/13/21 20:38: Bedside Glucose (Misc Panel) 231H 05/14/21 05:37: Nucleated Red Blood Cells % (auto) 0.0, Erythrocyte Sedimentation Rate 54H, Anion Gap 3L, Glomerular Filtration Rate > 60.0, Estimated Mean Plasma Glucose 157H, Hemoglobin A1c 7.1, Calcium Level 8.5L, C-Reactive Protein, Quantitative 9.34H, Triglycerides Level 97, Total Cholesterol 209H, LDL Cholesterol 147H, Non-HDL Cholesterol (LDL + VLDL) 166, Total HDL Cholesterol 43, Cholesterol/HDL Ratio 4.860 05/14/21 11:25: Bedside Glucose (Misc Panel) 162H CBC/BMP Laboratory Tests 05/14/21 05:37 Microbiology Microbiology 05/09/21 Urine Culture - Final, Complete Enterococcus Faecalis DAVID MCKEE DO May 14, 2021 15:00
[2021-05-14] MEDS: CLOPIDOGREL 75 MG TAB PO SCH (21:08)
[2021-05-14 22:00] VITALS: BP 150/80
[2021-05-15] MEDS: AMPICILLIN SOD 2 GM in D5W MINI-BAG PLUS 100 ML IV SCH ×4 (02:57→20:35)
[2021-05-15] MEDS: NS 1,000 ML IV SCH ×3 (02:59→23:29)
--- NOTE | 2021-05-15 03:34 | REPVR ---
PROCEDURE INFORMATION: Exam: CT Head without Contrast Exam date and time: 05/14/21 (11:49pm) Age: 86 years old Clinical indication: Re-evaluation. Assess for hemorrhage. TECHNIQUE: Imaging protocol: Computed tomography of the head without contrast. Radiation optimization: All CT scans at this facility use at least one of these dose optimization techniques: automated exposure control; mA and/or kV adjustment per patient size (includes targeted exams where dose is matched to clinical indication); or iterative reconstruction. COMPARISON: CT Head without contrast 05/14/21 (9:31am) FINDINGS: Brain: No acute hemorrhage. No cerebral edema. No mass effect. Age-related atrophic changes are noted. Periventricular and subcortical areas of low attenuation, compatible with chronic small vessel microischemic changes. Cerebral ventricles: Probable compensatory dilatation of the ventricles, secondary to central atrophy. Paranasal sinuses: Visualized sinuses are unremarkable. No fluid levels. Mastoid air cells: Visualized mastoid air cells are well aerated. Bones/joints: Unremarkable. No acute fracture. Soft tissues: Unremarkable. IMPRESSION: No acute intracranial pathology. Chronic atrophic and microischemic changes. The brain had a similar appearance 14 hours ago. Electronically signed by: Rubi Monahan On 05/15/2021 03:33:46 AM
[2021-05-15 05:52] LABS: HEMATOCRIT 38.3 % (42.0-52.0); HEMOGLOBIN 12.4 g/dl (13.5-17.5); MEAN CORPUSCULAR HEMOGLOBIN 30.2 pg (27.0-33.0); MEAN CORPUSCULAR HGB CONC 32.4 g/dl (32.0-36.5); MEAN CORPUSCULAR VOLUME 93.4 fl (80.0-96.0); PLATELET COUNT, AUTOMATED 222 10^3/uL (150-450); WHITE BLOOD COUNT 6.6 10^3/uL (4.0-10.0)
[2021-05-15 06:00] VITALS: BP 152/90
[2021-05-15 06:17] LABS: BLOOD UREA NITROGEN 13 MG/DL (7-18); CALCIUM LEVEL 7.9 MG/DL (8.8-10.2); CARBON DIOXIDE LEVEL 30 MEQ/L (21-32); CHLORIDE LEVEL 105 MEQ/L (98-107); CREATININE FOR GFR 0.63 MG/DL (0.70-1.30); GLOMERULAR FILTRATION RATE > 60.0 (>35); GLUCOSE, FASTING 143 MG/DL (70-100); POTASSIUM SERUM 3.7 MEQ/L (3.5-5.1); SODIUM LEVEL 138 MEQ/L (136-145)
[2021-05-15] MEDS: HumaLOG INSULIN (NovoLOG) PER UNIT SC SCH ×4 (08:48→20:36)
[2021-05-15] MEDS: FOLIC ACID 1 MG TAB PO SCH (08:49)
[2021-05-15] MEDS: ENOXAPARIN 40MG/0.4ML SYRINGE (J1650 PER 10MG) SC SCH (08:49)
[2021-05-15] MEDS: ASPIRIN 81MG ENTERIC TABLET PO SCH (08:49)
[2021-05-15] MEDS: DOCUSATE SODIUM 100MG CAPSULE PO SCH ×2 (08:50→20:35)
[2021-05-15] MEDS: CLOPIDOGREL 75 MG TAB PO SCH (08:50)
[2021-05-15] MEDS: ATORVASTATIN 20 MG TAB PO SCH (08:50)
[2021-05-15] MEDS: FINASTERIDE 5 MG TAB PO SCH (08:51)
[2021-05-15] MEDS ORDERED: CLOPIDOGREL 75 MG TAB PO SCH (09:00)
--- NOTE | 2021-05-15 12:30 | ECHO ---
ECHOCARDIOGRAM DATE OF PROCEDURE: 05/14/2021 Age: 86 REFERRING PROVIDER: Hanna Burnett MD. PATIENT LOCATION: Room 4204. INDICATIONS: 2D MEASUREMENTS: None done because of very poor acoustic window. DOPPLER MEASUREMENT Not done. 2D COMMENTS: 1. Technically very limited study due to poor acoustic window. 2. The left atrium appeared to be mildly enlarged. 3. The right heart chambers appeared to be normal in size on limited views. 4. The endocardium was not well visualized, left ventricular systolic function is undetermined. 5. Bubble study was not completed due to very poor acoustic window. 6. If needed, I would strongly recommend a transesophageal echocardiogram. IMPRESSION: As above. MTDD
[2021-05-15 14:00] VITALS: BP 158/84
--- NOTE | 2021-05-15 18:41 | IPNPDOC ---
Subjective Date Seen The patient was seen on 05/15/21. Subjective Chief Complaint/HPI Mr. Recio is an 86 year old male with NIDDM2, hypertension, and prostate cancer who is here for metabolic encephalopathy 2/2 Enterococcus UTI and found to have an acute stroke. This morning, he could not hear me, but he could vocally speak much stronger. He read my written questions and answered vocally. Denied chest pain or dyspnea. Objective Physical Examination General Exam: Positive: Cooperative Eye Exam: Negative: Sclera icteric Chest Exam: Positive: Clear to auscultation Heart Exam: Positive: Rate Normal, Regular Rhythm Abdomen Exam: Positive: Normal bowel sounds, Soft; Negative: Tenderness Extremity Exam: Negative: Edema Neuro Exam: Negative: Normal Speech Assessment /Plan Assessment Mr. Recio is an 86 year old male with NIDDM2, hypertension, and prostate cancer who is here for metabolic encephalopathy 2/2 Enterococcus UTI. Enterococcus was penicillin sensitive, starting patient on ampicillin. Otherwise, patient was found to have an acute CVA at anteromedial left thalamus, right precentral gyrus, and deep white matter lacunar infarct. He had subacute infarcts in the left putaminal/skelton radiata lacunar infarct. He was also found to have probable severe stenosis involving the bilateral posterior cerebral arteries. Neurology was consulted, recommendations appreciated. Patient will be allowed permissive hypertension between 140 to 180. Full dose aspirin will be switched to DAPT. Patient will be started on atorvastatin. Echocardiogram results pending. No arrhythmia seen on telemetry at this time. Plan/VTE VTE Prophylaxis Ordered?: Yes Plan 1. Metabolic encephalopathy 2/2 Enterococcus UTI -Being treated with ampicillin day 3 2. 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 He also has subacute infarcts in the left putaminal/skelton radiata. -LDL 147, HbA1c 7.1 -Initial echocardiogram was a poor acoustic window. Will order again -No arrhythmia seen on telemetry -Neurology consulted, recommendations appreciated -Switch full dose aspirin to baby aspirin plus clopidogrel -Start atorvastatin -Allow for 48hours of permissive hypertension 3. Chronic urinary retention 2/2 BPH -Covarrubias catheter -Patient will need to follow up outpatient with urology 4. Worsening dementia -Patient will either need 24/7 care or placement 5. History of acoustic neuroma s/p gamma knife procedure -Patient is hard of hearing 6. Diabetes mellitus -On sliding scale insulin 8. Hypertension -Hold amlodipine to allow for permissive hypertension 9. Dysphagia -ST consulted, recommendations appreciated 10. DVT ppx -Lovenox Disposition: Patient requires 48 hours of permissive hypertension. Anticipate ARU afterwards. VS, I&O, 24H, Fishbone Vital Signs/I&O Vital Signs Date Time Temp Pulse Resp B/P (MAP) Pulse Ox O2 Delivery O2 Flow Rate FiO2 05/15/21 14:00 97.4 91 16 158/84 (108) 95 Room Air I&O- Last 24 Hours up to 6 AM 05/15/21 06:00 Intake Total 1000 ml Output Total 1500 ml Balance -500 ml Laboratory Data 24H LABS Laboratory Tests 2 05/14/21 21:00: Bedside Glucose (Misc Panel) 205H 05/15/21 05:38: Nucleated Red Blood Cells % (auto) 0.0, Anion Gap 3L, Glomerular Filtration Rate > 60.0, Calcium Level 7.9L 05/15/21 11:50: Bedside Glucose (Misc Panel) 227H 05/15/21 16:34: Bedside Glucose (Misc Panel) 119H CBC/BMP Laboratory Tests 05/15/21 05:38 Microbiology Microbiology 05/09/21 Urine Culture - Final, Complete Enterococcus Faecalis DAVID MCKEE DO May 15, 2021 18:40
[2021-05-15 22:00] VITALS: BP 136/81
[2021-05-16] MEDS: AMPICILLIN SOD 2 GM in D5W MINI-BAG PLUS 100 ML IV SCH ×4 (01:27→19:36)
[2021-05-16 05:57] LABS: HEMATOCRIT 38.4 % (42.0-52.0); HEMOGLOBIN 12.6 g/dl (13.5-17.5); MEAN CORPUSCULAR HEMOGLOBIN 30.4 pg (27.0-33.0); MEAN CORPUSCULAR HGB CONC 32.8 g/dl (32.0-36.5); MEAN CORPUSCULAR VOLUME 92.8 fl (80.0-96.0); PLATELET COUNT, AUTOMATED 226 10^3/uL (150-450); RED BLOOD COUNT 4.14 10^6/uL (4.30-6.10); WHITE BLOOD COUNT 6.3 10^3/uL (4.0-10.0)
[2021-05-16 06:00] VITALS: BP 196/90
[2021-05-16 06:19] LABS: BLOOD UREA NITROGEN 14 MG/DL (7-18); CALCIUM LEVEL 8.2 MG/DL (8.8-10.2); CARBON DIOXIDE LEVEL 29 MEQ/L (21-32); CHLORIDE LEVEL 107 MEQ/L (98-107); CREATININE FOR GFR 0.62 MG/DL (0.70-1.30); GLOMERULAR FILTRATION RATE > 60.0 (>35); GLUCOSE, FASTING 133 MG/DL (70-100); POTASSIUM SERUM 3.8 MEQ/L (3.5-5.1); SODIUM LEVEL 140 MEQ/L (136-145)
[2021-05-16 06:47] VITALS: BP 157/95
[2021-05-16] MEDS: HumaLOG INSULIN (NovoLOG) PER UNIT SC SCH ×4 (07:30→21:00)
[2021-05-16] MEDS: ATORVASTATIN 20 MG TAB PO SCH (08:35)
[2021-05-16] MEDS: FINASTERIDE 5 MG TAB PO SCH (08:35)
[2021-05-16] MEDS: DOCUSATE SODIUM 100MG CAPSULE PO SCH ×2 (08:36→19:36)
[2021-05-16] MEDS: ASPIRIN 81MG ENTERIC TABLET PO SCH (08:36)
[2021-05-16] MEDS: CLOPIDOGREL 75 MG TAB PO SCH (08:36)
[2021-05-16] MEDS: NS 1,000 ML IV SCH ×2 (08:36→19:36)
[2021-05-16] MEDS: FOLIC ACID 1 MG TAB PO SCH (08:36)
[2021-05-16] MEDS: ENOXAPARIN 40MG/0.4ML SYRINGE (J1650 PER 10MG) SC SCH (08:36)
--- NOTE | 2021-05-16 10:02 | REPVR ---
PROCEDURE INFORMATION: Exam: CT Head Without Contrast Exam date and time: 05/16/2021 7:45 AM Age: 86 years old Clinical indication: Other: Waxing and waning mentation TECHNIQUE: Imaging protocol: Computed tomography of the head without contrast. Radiation optimization: All CT scans at this facility use at least one of these dose optimization techniques: automated exposure control; mA and/or kV adjustment per patient size (includes targeted exams where dose is matched to clinical indication); or iterative reconstruction. COMPARISON: CT Head without contrast 05/14/2021 11:48 PM FINDINGS: Brain: There is no acute intracranial abnormality.Moderate small vessel ischemic changes are seen. There is no mass, midline shift, or mass effect. Quinones-white matter differentiation is preserved. There is no evidence of hemorrhage. There is no extra-axial fluid collection. Basal cisterns are patent. Old lacunar infarcts in bilateral basal ganglia, and left thalamus. Cerebral ventricles: Moderate prominence of ventricles and sulci representing volume loss. Paranasal sinuses: Visualized sinuses are unremarkable. No fluid levels. Mastoid air cells: Visualized mastoid air cells are well aerated. Bones/joints: Unremarkable. No acute fracture. Soft tissues: Unremarkable. IMPRESSION: 1. Moderate volume loss and small vessel ischemic changes.Old lacunar infarcts in bilateral basal ganglia, and left thalamus. 2. No acute intracranial abnormality. Electronically signed by: April Henry On 05/16/2021 10:02:08 AM
--- NOTE | 2021-05-16 13:08 | IPNPDOC ---
Subjective Date Seen The patient was seen on 05/16/21. Subjective Chief Complaint/HPI Mr. Recio is an 86 year old male with NIDDM2, hypertension, and prostate cancer who is here for metabolic encephalopathy 2/2 Enterococcus UTI and found to have an acute stroke. We communicated this morning using writing. Denies chest pain, denies dyspnea. Telemetry negative for atrial fibrillation and no history of atrial fibrillation. Spoke with animal technician, another TTE would not be helpful. Spoke with Dr. Lake for ALBINA. NPO now and possible procedure later today or Wednesday. I discussed with and son and both are in agreement. I de scribed the procedure in writing to the patient. He is okay with the procedure as well. Objective Physical Examination General Exam: Positive: Cooperative Eye Exam: Negative: Sclera icteric Chest Exam: Positive: Clear to auscultation Heart Exam: Positive: Rate Normal, Regular Rhythm Abdomen Exam: Positive: Normal bowel sounds, Soft; Negative: Tenderness Extremity Exam: Negative: Edema Neuro Exam: Negative: Normal Speech Assessment /Plan Assessment Mr. Recio is an 86 year old male with NIDDM2, hypertension, and prostate cancer who is here for metabolic encephalopathy 2/2 Enterococcus UTI. Enterococcus was penicillin sensitive, starting patient on ampicillin. Otherwise, patient was found to have an acute CVA at anteromedial left thalamus, right precentral gyrus, and deep white matter lacunar infarct. He had subacute infarcts in the left putaminal/skelton radiata lacunar infarct. He was also found to have probable severe stenosis involving the bilateral posterior cerebral arteries. Neurology was consulted, recommendations appreciated. Patient will be allowed permissive hypertension between 140 to 180. Full dose aspirin will be switched to DAPT. Patient will be started on atorvastatin. Transthoracic echocardiogram had poor acoustic window. Unable to see anything. Patient will need ALBINA with bubble study. No arrhythmia seen on telemetry at this time. Plan/VTE VTE Prophylaxis Ordered?: Yes Plan 1. Metabolic encephalopathy 2/2 Enterococcus UTI -Being treated with ampicillin day 4 -Possible vegetation? Pending ALBINA 2. 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 He also has subacute infarcts in the left putaminal/skelton radiata. -LDL 147, HbA1c 7.1 -Initial echocardiogram was a poor acoustic window -No arrhythmia seen on telemetry -Neurology consulted, recommendations appreciated -Switch full dose aspirin to baby aspirin plus clopidogrel -Start atorvastatin -Allow for 48hours of permissive hypertension -Dr. Lake to perform ALBINA either today or Wednesday 3. Chronic urinary retention 2/2 BPH -Covarrubias catheter -Patient will need to follow up outpatient with urology 4. Worsening dementia -Patient will either need 24/ care or placement 5. History of acoustic neuroma s/p gamma knife procedure -Patient is hard of hearing 6. Diabetes mellitus -On sliding scale insulin 8. Hypertension -Hold amlodipine to allow for permissive hypertension 9. Dysphagia -ST consulted, recommendations appreciated 10. DVT ppx -Lovenox Disposition: Pending ALBINA results. Patient will need ARU afterwards. VS, I&O, 24H, Fishbone Vital Signs/I&O Vital Signs Date Time Temp Pulse Resp B/P (MAP) Pulse Ox O2 Delivery O2 Flow Rate FiO2 05/16/21 06:47 157/95 (115) 05/16/21 06:00 97.2 89 18 93 Room Air I&O- Last 24 Hours up to 6 AM 05/16/21 06:00 Intake Total 1200 ml Output Total 1120 ml Balance 80 ml Laboratory Data 24H LABS Laboratory Tests 2 05/15/21 16:34: Bedside Glucose (Misc Panel) 119H 05/15/21 20:28: Bedside Glucose (Misc Panel) 279H 05/16/21 05:18: Nucleated Red Blood Cells % (auto) 0.0, Anion Gap 4L, Glomerular Filtration Rate > 60.0, Calcium Level 8.2L 05/16/21 11:41: Bedside Glucose (Misc Panel) 249H CBC/BMP Laboratory Tests 05/16/21 05:18 Microbiology Microbiology 05/09/21 Urine Culture - Final, Complete Enterococcus Faecalis DAVID MCKEE DO May 16, 2021 13:08
[2021-05-16 13:14] LABS: ANTI THROMBIN 3 FUNCT ACTIVITY 101 % (75-135); ANTINUCLEAR ANTIBODIES DIRECT Negative (Negative); FACTOR V 133 % (70-150); PROTEIN C ANTIGEN 111 % (60-150); PROTEIN S ANTIGEN FREE 90 % (57-157); PROTEIN S ANTIGEN TOTAL 94 % (60-150)
[2021-05-16 14:00] VITALS: BP 116/76
[2021-05-16 22:00] VITALS: BP 169/72
[2021-05-17] MEDS: AMPICILLIN SOD 2 GM in D5W MINI-BAG PLUS 100 ML IV SCH ×4 (01:51→19:36)
[2021-05-17 06:00] VITALS: BP 179/88
[2021-05-17] MEDS: NS 1,000 ML IV SCH ×3 (06:11→20:55)
[2021-05-17 06:52] LABS: HEMATOCRIT 41.1 % (42.0-52.0); HEMOGLOBIN 13.5 g/dl (13.5-17.5); MEAN CORPUSCULAR HEMOGLOBIN 30.8 pg (27.0-33.0); MEAN CORPUSCULAR HGB CONC 32.8 g/dl (32.0-36.5); MEAN CORPUSCULAR VOLUME 93.6 fl (80.0-96.0); PLATELET COUNT, AUTOMATED 279 10^3/uL (150-450); RED BLOOD COUNT 4.39 10^6/uL (4.30-6.10); WHITE BLOOD COUNT 8.1 10^3/uL (4.0-10.0)
[2021-05-17 07:13] LABS: BLOOD UREA NITROGEN 10 MG/DL (7-18); CALCIUM LEVEL 8.1 MG/DL (8.8-10.2); CARBON DIOXIDE LEVEL 30 MEQ/L (21-32); CHLORIDE LEVEL 106 MEQ/L (98-107); CREATININE FOR GFR 0.63 MG/DL (0.70-1.30); GLOMERULAR FILTRATION RATE > 60.0 (>35); GLUCOSE, FASTING 148 MG/DL (70-100); POTASSIUM SERUM 3.8 MEQ/L (3.5-5.1); SODIUM LEVEL 140 MEQ/L (136-145)
[2021-05-17] MEDS: ENOXAPARIN 40MG/0.4ML SYRINGE (J1650 PER 10MG) SC SCH (08:16)
[2021-05-17] MEDS: HumaLOG INSULIN (NovoLOG) PER UNIT SC SCH ×4 (08:16→19:36)
[2021-05-17] MEDS: CLOPIDOGREL 75 MG TAB PO SCH (08:17)
[2021-05-17] MEDS: DOCUSATE SODIUM 100MG CAPSULE PO SCH ×2 (08:17→19:36)
[2021-05-17] MEDS: ASPIRIN 81MG ENTERIC TABLET PO SCH (08:17)
[2021-05-17] MEDS: FOLIC ACID 1 MG TAB PO SCH (08:17)
[2021-05-17] MEDS: ATORVASTATIN 20 MG TAB PO SCH (08:17)
[2021-05-17] MEDS: FINASTERIDE 5 MG TAB PO SCH (08:17)
[2021-05-17] MEDS: amLODIPine 5 MG TAB PO SCH (09:00)
--- NOTE | 2021-05-17 10:45 | IPNPDOC ---
Subjective Date Seen The patient was seen on 05/17/21. Subjective Chief Complaint/HPI Mr. Recio is an 86 year old male with NIDDM2, hypertension, and prostate cancer who is here for metabolic encephalopathy 2/2 Enterococcus UTI and found to have an acute stroke. Yesterday, unable to do ALBINA. Will need to aim for Wednesday. Otherwise, this morning, he was able to hear me with hearing aid and we communicated well. He denies any chest pain or dyspnea. Objective Physical Examination General Exam: Positive: Alert, Cooperative Eye Exam: Negative: Sclera icteric Chest Exam: Positive: Clear to auscultation Heart Exam: Positive: Rate Normal, Regular Rhythm Abdomen Exam: Positive: Normal bowel sounds, Soft; Negative: Tenderness Extremity Exam: Negative: Edema Neuro Exam: Positive: Normal Speech Assessment /Plan Assessment Mr. Recio is an 86 year old male with NIDDM2, hypertension, and prostate cancer who is here for metabolic encephalopathy 2/2 Enterococcus UTI. Enterococcus was penicillin sensitive, starting patient on ampicillin. Otherwise, patient was found to have an acute CVA at anteromedial left thalamus, right precentral gyrus, and deep white matter lacunar infarct. He had subacute infarcts in the left putaminal/skelton radiata lacunar infarct. He was also found to have probable severe stenosis involving the bilateral posterior cerebral arteries. Neurology was consulted, recommendations appreciated. Patient will be allowed permissive hypertension between 140 to 180. Full dose aspirin will be switched to DAPT. Patient will be started on atorvastatin. Transthoracic echocardiogram had poor acoustic window. Unable to see anything. Patient will need ALBINA with bubble study. No arrhythmia seen on telemetry at this time. Plan/VTE VTE Prophylaxis Ordered?: Yes Plan 1. Metabolic encephalopathy 2/2 Enterococcus UTI -Being treated with ampicillin day 5 -Possible vegetation? Pending ALBINA 2. 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 He also has subacute infarcts in the left putaminal/skelton radiata. -LDL 147, HbA1c 7.1 -Initial echocardiogram was a poor acoustic window -No arrhythmia seen on telemetry -Neurology consulted, recommendations appreciated -Switch full dose aspirin to baby aspirin plus clopidogrel -Start atorvastatin -Allow for 48hours of permissive hypertension -Dr. Lake to perform ALBINA. Aiming for Wednesday 3. Chronic urinary retention 2/2 BPH -Covarrubias catheter -Patient will need to follow up outpatient with urology 4. Worsening dementia -Patient will either need / care or placement 5. History of acoustic neuroma s/p gamma knife procedure -Patient is hard of hearing 6. Diabetes mellitus -On sliding scale insulin 8. Hypertension -Hold amlodipine to allow for permissive hypertension 9. Dysphagia -ST consulted, recommendations appreciated 10. DVT ppx -Lovenox Disposition: Pending ALBINA anticipated on Wednesday. Patient will need ARU afterwards. VS, I&O, 24H, Fishbone Vital Signs/I&O Vital Signs Date Time Temp Pulse Resp B/P (MAP) Pulse Ox O2 Delivery O2 Flow Rate FiO2 05/17/21 06:00 98.0 104 17 179/88 (118) 95 Room Air 05/16/21 14:00 0.0 I&O- Last 24 Hours up to 6 AM 05/17/21 05:59 Intake Total 2140 ml Output Total 3320 ml Balance -1180 ml Laboratory Data 24H LABS Laboratory Tests 2 05/16/21 11:41: Bedside Glucose (Misc Panel) 249H 05/16/21 16:50: Bedside Glucose (Misc Panel) 97 05/16/21 20:57: Bedside Glucose (Misc Panel) 169H 05/17/21 06:29: Nucleated Red Blood Cells % (auto) 0.0, Anion Gap 4L, Glomerular Filtration Rate > 60.0, Calcium Level 8.1L CBC/BMP Laboratory Tests 05/17/21 06:29 Microbiology Microbiology 05/09/21 Urine Culture - Final, Complete Enterococcus Faecalis DAVID MCKEE DO May 17, 2021 10:45
[2021-05-17 13:00] VITALS: BP 110/66
[2021-05-17 14:00] VITALS: BP 109/66
[2021-05-17 22:00] VITALS: BP 160/82
[2021-05-18] MEDS: AMPICILLIN SOD 2 GM in D5W MINI-BAG PLUS 100 ML IV SCH ×4 (01:26→20:02)
[2021-05-18 06:00] VITALS: BP 142/80
[2021-05-18 07:08] LABS: HEMATOCRIT 35.9 % (42.0-52.0); HEMOGLOBIN 11.9 g/dl (13.5-17.5); MEAN CORPUSCULAR HEMOGLOBIN 30.7 pg (27.0-33.0); MEAN CORPUSCULAR HGB CONC 33.1 g/dl (32.0-36.5); MEAN CORPUSCULAR VOLUME 92.8 fl (80.0-96.0); PLATELET COUNT, AUTOMATED 284 10^3/uL (150-450); RED BLOOD COUNT 3.87 10^6/uL (4.30-6.10); WHITE BLOOD COUNT 8.4 10^3/uL (4.0-10.0)
[2021-05-18 07:41] LABS: BLOOD UREA NITROGEN 13 MG/DL (7-18); CARBON DIOXIDE LEVEL 29 MEQ/L (21-32); CHLORIDE LEVEL 106 MEQ/L (98-107); GLOMERULAR FILTRATION RATE > 60.0 (>35); GLUCOSE, FASTING 147 MG/DL (70-100); POTASSIUM SERUM 3.7 MEQ/L (3.5-5.1); SODIUM LEVEL 139 MEQ/L (136-145)
[2021-05-18] MEDS: FOLIC ACID 1 MG TAB PO SCH (09:29)
[2021-05-18] MEDS: ATORVASTATIN 20 MG TAB PO SCH (09:29)
[2021-05-18] MEDS: ASPIRIN 81MG ENTERIC TABLET PO SCH (09:29)
[2021-05-18] MEDS: CLOPIDOGREL 75 MG TAB PO SCH (09:29)
[2021-05-18] MEDS: DOCUSATE SODIUM 100MG CAPSULE PO SCH ×2 (09:29→20:02)
[2021-05-18] MEDS: FINASTERIDE 5 MG TAB PO SCH (09:29)
[2021-05-18] MEDS: HumaLOG INSULIN (NovoLOG) PER UNIT SC SCH ×4 (09:30→21:00)
[2021-05-18] MEDS: ENOXAPARIN 40MG/0.4ML SYRINGE (J1650 PER 10MG) SC SCH (09:30)
[2021-05-18] MEDS: NS 1,000 ML IV SCH ×2 (09:35→17:11)
[2021-05-18] MEDS: amLODIPine 5 MG TAB PO SCH (09:39)
--- NOTE | 2021-05-18 14:31 | IPNPDOC ---
Subjective Date Seen The patient was seen on 05/18/21. Subjective Chief Complaint/HPI Mr. Recio is an 86 year old male with NIDDM2, hypertension, and prostate cancer who is here for metabolic encephalopathy 2/2 Enterococcus UTI and found to have an acute stroke. This morning he was able to hear me and verbally respond. Denies chest pain or dyspnea. I spoke with Dr. Lake. He will be able to do the ALBINA on Wednesday afternoon. Recommended contacting the EKG department in the morning to schedule an appointment and to make patient NPO after breakfast. Objective Physical Examination General Exam: Positive: Alert, Cooperative Eye Exam: Negative: Sclera icteric Chest Exam: Positive: Clear to auscultation Heart Exam: Positive: Rate Normal, Regular Rhythm Abdomen Exam: Positive: Normal bowel sounds, Soft; Negative: Tenderness Extremity Exam: Negative: Edema Neuro Exam: Positive: Normal Speech Assessment /Plan Assessment Mr. Recio is an 86 year old male with NIDDM2, hypertension, and prostate cancer who is here for metabolic encephalopathy 2/2 Enterococcus UTI. Enterococcus was penicillin sensitive, starting patient on ampicillin. Otherwise, patient was found to have an acute CVA at anteromedial left thalamus, right precentral gyrus, and deep white matter lacunar infarct. He had subacute infarcts in the left putaminal/skelton radiata lacunar infarct. He was also found to have probable severe stenosis involving the bilateral posterior cerebral arteries. Neurology was consulted, recommendations appreciated. Patient will be allowed permissive hypertension between 140 to 180. Full dose aspirin will be switched to DAPT. Patient will be started on atorvastatin. Transthoracic echocardiogram had poor acoustic window. Unable to see anything. Patient will need ALBINA with bubble study. No arrhythmia seen on telemetry at this time. Plan/VTE VTE Prophylaxis Ordered?: Yes Plan 1. Metabolic encephalopathy 2/2 Enterococcus UTI -Being treated with ampicillin day 6 -Possible vegetation? Pending ALBINA 2. 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 He also has subacute infarcts in the left putaminal/skelton radiata. -LDL 147, HbA1c 7.1 -Initial echocardiogram was a poor acoustic window -No arrhythmia seen on telemetry -Neurology consulted, recommendations appreciated -Switch full dose aspirin to baby aspirin plus clopidogrel -Start atorvastatin -Allow for 48hours of permissive hypertension -Dr. Lake to perform ALBINA. Aiming for Wednesday 3. Chronic urinary retention 2/2 BPH -Covarrubias catheter -Patient will need to follow up outpatient with urology 4. Worsening dementia -Patient will either need 24/ care or placement 5. History of acoustic neuroma s/p gamma knife procedure -Patient is hard of hearing 6. Diabetes mellitus -On sliding scale insulin 8. Hypertension -Hold amlodipine to allow for permissive hypertension 9. Dysphagia -ST consulted, recommendations appreciated 10. DVT ppx -Lovenox Disposition: Pending ALBINA anticipated on Wednesday. Patient will need ARU afterwards. VS, I&O, 24H, Fishbone Vital Signs/I&O Vital Signs Date Time Temp Pulse Resp B/P (MAP) Pulse Ox O2 Delivery O2 Flow Rate FiO2 05/18/21 09:39 74 130/88 05/18/21 06:00 98.0 18 97 Room Air 05/16/21 14:00 0.0 I&O- Last 24 Hours up to 6 AM 05/18/21 06:00 Intake Total 1330 ml Output Total 1850 ml Balance -520 ml Laboratory Data 24H LABS Laboratory Tests 2 05/17/21 16:46: Bedside Glucose (Misc Panel) 149H 05/17/21 19:35: Bedside Glucose (Misc Panel) 221H 05/18/21 06:46: Anion Gap 4L, Glomerular Filtration Rate > 60.0, Calcium Level 8.0L 05/18/21 06:47: Nucleated Red Blood Cells % (auto) 0.0 05/18/21 11:40: Bedside Glucose (Misc Panel) 196H CBC/BMP Laboratory Tests 05/18/21 06:46 05/18/21 06:47 Microbiology Microbiology 05/09/21 Urine Culture - Final, Complete Enterococcus Faecalis DAVID MCKEE DO May 18, 2021 14:31
[2021-05-18 22:00] VITALS: BP 164/92
[2021-05-19] VITALS (8 sets, daily range): BP systolic 114–176; BP diastolic 62–98
[2021-05-19] MEDS: AMPICILLIN SOD 2 GM in D5W MINI-BAG PLUS 100 ML IV SCH ×4 (02:52→21:41)
[2021-05-19] MEDS: NS 1,000 ML IV SCH ×2 (02:53→21:46)
[2021-05-19 06:28] LABS: HEMATOCRIT 38.6 % (42.0-52.0); HEMOGLOBIN 12.8 g/dl (13.5-17.5); MEAN CORPUSCULAR HEMOGLOBIN 30.8 pg (27.0-33.0); MEAN CORPUSCULAR HGB CONC 33.2 g/dl (32.0-36.5); MEAN CORPUSCULAR VOLUME 92.8 fl (80.0-96.0); PLATELET COUNT, AUTOMATED 312 10^3/uL (150-450); RED BLOOD COUNT 4.16 10^6/uL (4.30-6.10); WHITE BLOOD COUNT 6.3 10^3/uL (4.0-10.0)
[2021-05-19 06:47] LABS: BLOOD UREA NITROGEN 10 MG/DL (7-18); CALCIUM LEVEL 8.4 MG/DL (8.8-10.2); CARBON DIOXIDE LEVEL 29 MEQ/L (21-32); CHLORIDE LEVEL 107 MEQ/L (98-107); CREATININE FOR GFR 0.66 MG/DL (0.70-1.30); GLOMERULAR FILTRATION RATE > 60.0 (>35); GLUCOSE, FASTING 132 MG/DL (70-100); POTASSIUM SERUM 3.8 MEQ/L (3.5-5.1); SODIUM LEVEL 141 MEQ/L (136-145)
[2021-05-19] MEDS: HumaLOG INSULIN (NovoLOG) PER UNIT SC SCH ×4 (07:30→21:00)
[2021-05-19] MEDS: DOCUSATE SODIUM 100MG CAPSULE PO SCH ×2 (08:16→21:41)
[2021-05-19] MEDS: FINASTERIDE 5 MG TAB PO SCH (08:16)
[2021-05-19] MEDS: ATORVASTATIN 20 MG TAB PO SCH (08:16)
[2021-05-19] MEDS: amLODIPine 5 MG TAB PO SCH (08:16)
[2021-05-19] MEDS: CLOPIDOGREL 75 MG TAB PO SCH (08:16)
[2021-05-19] MEDS: ASPIRIN 81MG ENTERIC TABLET PO SCH (08:16)
[2021-05-19] MEDS: FOLIC ACID 1 MG TAB PO SCH (08:16)
[2021-05-19] MEDS: ENOXAPARIN 40MG/0.4ML SYRINGE (J1650 PER 10MG) SC SCH (08:17)
--- NOTE | 2021-05-19 12:17 | IPNPDOC ---
Subjective Date Seen The patient was seen on 05/19/21. Subjective Chief Complaint/HPI Mr. Recio is an 86 year old male with NIDDM2, hypertension, and prostate cancer who is here for metabolic encephalopathy 2/2 Enterococcus UTI and found to have an acute stroke. This morning, he was able to hear me and respond appropriately. Denies chest pain or dyspnea. Plan for ALBINA by Dr. Lake at 3:30PM. Objective Physical Examination General Exam: Positive: Alert, Cooperative Eye Exam: Negative: Sclera icteric Chest Exam: Positive: Clear to auscultation Heart Exam: Positive: Rate Normal, Regular Rhythm Abdomen Exam: Positive: Normal bowel sounds, Soft; Negative: Tenderness Extremity Exam: Negative: Edema Neuro Exam: Positive: Normal Speech Assessment /Plan Assessment Mr. Recio is an 86 year old male with NIDDM2, hypertension, and prostate cancer who is here for metabolic encephalopathy 2/2 Enterococcus UTI. Enterococcus was penicillin sensitive, starting patient on ampicillin. Otherwise, patient was found to have an acute CVA at anteromedial left thalamus, right precentral gyrus, and deep white matter lacunar infarct. He had subacute infarcts in the left putaminal/skelton radiata lacunar infarct. He was also found to have probable severe stenosis involving the bilateral posterior cerebral arteries. Neurology was consulted, recommendations appreciated. Patient will be allowed permissive hypertension between 140 to 180 (completed). Full dose aspirin will be switched to DAPT. Patient will be started on atorvastatin. Transthoracic echocardiogram had poor acoustic window and unable to see anything. Patient will need ALBINA with bubble study which will be done today by Dr. Lake at 3:30PM. No arrhythmia seen on telemetry at this time. Plan/VTE VTE Prophylaxis Ordered?: Yes Plan 1. Metabolic encephalopathy 2/2 Enterococcus UTI -Being treated with ampicillin day 7 -Possible vegetation? Pending ALBINA 2. 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 He also has subacute infarcts in the left putaminal/skelton radiata. -LDL 147, HbA1c 7.1 -Initial echocardiogram was a poor acoustic window -No arrhythmia seen on telemetry -Neurology consulted, recommendations appreciated -Switch full dose aspirin to baby aspirin plus clopidogrel -Start atorvastatin -Completed 48 hours of permissive hypertension -Dr. Antecol to perform ALBINA on 05/19/21 at 3:30PM 3. Chronic urinary retention 2/2 BPH -Covarrubisa catheter -Patient will need to follow up outpatient with urology 4. Worsening dementia -Patient will either need 24/ care or placement 5. History of acoustic neuroma s/p gamma knife procedure -Patient is hard of hearing 6. Diabetes mellitus -On sliding scale insulin 8. Hypertension -Hold amlodipine to allow for permissive hypertension 9. Dysphagia -ST consulted, recommendations appreciated 10. DVT ppx -Lovenox Disposition: Pending ALBINA today. Anticipate ARU tomorrow. VS, I&O, 24H, Fishbone Vital Signs/I&O Vital Signs Date Time Temp Pulse Resp B/P (MAP) Pulse Ox O2 Delivery O2 Flow Rate FiO2 05/19/21 11:08 148/82 (104) 05/19/21 08:16 92 05/19/21 06:00 97.8 18 92 Room Air 05/16/21 14:00 0.0 I&O- Last 24 Hours up to 6 AM 05/19/21 06:00 Intake Total 1530 ml Output Total 3850 ml Balance -2320 ml Laboratory Data 24H LABS Laboratory Tests 2 05/18/21 16:40: Bedside Glucose (Misc Panel) 98 05/18/21 19:40: Bedside Glucose (Misc Panel) 201H 05/19/21 05:50: Nucleated Red Blood Cells % (auto) 0.0, Anion Gap 5L, Glomerular Filtration Rate > 60.0, Calcium Level 8.4L 05/19/21 11:28: 05/19/21 11:44: Bedside Glucose (Misc Panel) 187H CBC/BMP Laboratory Tests 05/19/21 05:50 Microbiology Microbiology 05/09/21 Urine Culture - Final, Complete Enterococcus Faecalis DAVID MCKEE DO May 19, 2021 12:17
[2021-05-19] MEDS ORDERED: propofoL 200 MG/20 ML VIAL As Ordered ONE ×2 (15:27→15:28)
[2021-05-19] MEDS ORDERED: LIDOCAINE 2% 100MG/5ML SDV (FOR ANES.) As Ordered ONE (15:28)
[2021-05-19] MEDS ORDERED: fentaNYL 100 MCG/2 ML INJECTION (J3010) As Ordered ONE (15:29)
[2021-05-19] MEDS ORDERED: CETACAINE SPRAY 5GM As Ordered ONE (16:53)
[2021-05-19] MEDS ORDERED: LR 1,000 ML IV SCH (17:35)
[2021-05-19] MEDS ORDERED: ONDANSETRON 4MG/2ML VIAL IV PRN (17:35)
[2021-05-20] MEDS: AMPICILLIN SOD 2 GM in D5W MINI-BAG PLUS 100 ML IV SCH ×2 (02:55→08:24)
[2021-05-20 06:00] VITALS: BP 130/74
[2021-05-20 06:47] LABS: HEMATOCRIT 38.6 % (42.0-52.0); HEMOGLOBIN 12.6 g/dl (13.5-17.5); MEAN CORPUSCULAR HEMOGLOBIN 30.4 pg (27.0-33.0); MEAN CORPUSCULAR HGB CONC 32.6 g/dl (32.0-36.5); MEAN CORPUSCULAR VOLUME 93.2 fl (80.0-96.0); PLATELET COUNT, AUTOMATED 320 10^3/uL (150-450); RED BLOOD COUNT 4.14 10^6/uL (4.30-6.10); WHITE BLOOD COUNT 6.2 10^3/uL (4.0-10.0)
[2021-05-20 07:14] LABS: ERYTHROCYTE SEDIMENTATION RATE 67 mm/hr (0-20)
[2021-05-20 07:39] LABS: BLOOD UREA NITROGEN 11 MG/DL (7-18); CARBON DIOXIDE LEVEL 28 MEQ/L (21-32); CHLORIDE LEVEL 105 MEQ/L (98-107); CREATININE FOR GFR 0.67 MG/DL (0.70-1.30); GLOMERULAR FILTRATION RATE > 60.0 (>35); GLUCOSE, FASTING 135 MG/DL (70-100); POTASSIUM SERUM 3.9 MEQ/L (3.5-5.1); SODIUM LEVEL 139 MEQ/L (136-145)
[2021-05-20 07:55] VITALS: BP 160/82
[2021-05-20] MEDS: HumaLOG INSULIN (NovoLOG) PER UNIT SC SCH ×3 (08:21→18:31)
[2021-05-20] MEDS: ENOXAPARIN 40MG/0.4ML SYRINGE (J1650 PER 10MG) SC SCH (08:22)
[2021-05-20] MEDS: DOCUSATE SODIUM 100MG CAPSULE PO SCH ×2 (08:22→20:30)
[2021-05-20] MEDS: ATORVASTATIN 20 MG TAB PO SCH (08:22)
[2021-05-20] MEDS: CLOPIDOGREL 75 MG TAB PO SCH (08:22)
[2021-05-20] MEDS: ASPIRIN 81MG ENTERIC TABLET PO SCH (08:22)
[2021-05-20] MEDS: FINASTERIDE 5 MG TAB PO SCH (08:22)
[2021-05-20] MEDS: amLODIPine 5 MG TAB PO SCH (08:23)
[2021-05-20] MEDS: FOLIC ACID 1 MG TAB PO SCH (08:23)
[2021-05-20] MEDS: NS 1,000 ML IV SCH (08:24)
[2021-05-20 10:00] VITALS: BP 146/70
[2021-05-20] MEDS ORDERED: VARIBAR PUDDING 40% w/v 230ML TUBE As Ordered ONE (11:42)
[2021-05-20] MEDS ORDERED: BARIUM SULFATE 700 MG TABLET (E-Z-DISK) As Ordered ONE (11:43)
[2021-05-20] MEDS ORDERED: E-Z-PAQUE 96% w/w SUSP 176GM BTL As Ordered ONE (11:43)
[2021-05-20] MEDS ORDERED: VARIBAR NECTAR 40% w/v 240ML SUSP BTL As Ordered ONE (11:43)
[2021-05-20] MEDS ORDERED: AMLO1TAB24 PO (12:03)
[2021-05-20] MEDS ORDERED: ATOR1TAB21 PO (12:03)
[2021-05-20] MEDS ORDERED: CLOP75TA2 PO (12:03)
[2021-05-20] MEDS ORDERED: ASPI81CH33 PO (12:03)
[2021-05-20] MEDS ORDERED: XARE20TA PO (12:15)
[2021-05-20] MEDS ORDERED: ASPI-551 PO (12:18)
[2021-05-20] MEDS ORDERED: LIDOCAINE 1% MDV 20ML VIAL As Ordered ONE (14:14)
[2021-05-20 15:30] VITALS: BP 142/86
--- NOTE | 2021-05-20 16:21 | REP ---
PROCEDURE NAME: PICC LINE INSERTION W/SITERITE CLINICAL INFORMATION: tpn. COMPARISON: None. PROCEDURE DESCRIPTION: The procedure was performed by ELAINE Voss, under the direct supervision of Dr. Quinones. The risks and benefits of the procedure were explained to the patient and an informed consent was obtained both verbally and written. Directly prior to the start of the procedure a formal time-out was completed in the procedure room. The right basilic vein was localized using ultrasound guidance. The skin was prepped and draped in sterile fashion. One mL of 1% lidocaine 10 mg/mL was used as a local anesthetic. Using ultrasound guidance the right basilic vein was cannulated, and a 0.018 guidewire was inserted and advanced to the level of SVC using fluoroscopic guidance. The needle was removed and a 5.5 Bhutanese dilator and peel-away sheath was inserted over the guidewire. A 5.5 Bhutanese dual lumen catheter was cut to a length of 40 cm. The dilator was removed and the catheter was inserted over the guidewire with the tip ending at the level of the SVC. The peel-away sheath was removed and the catheter was flushed with heparinized saline as per hospital protocol. The catheter was affixed to the skin and a sterile dressing was applied. The patient tolerated the procedure well and there were no immediate complications. CONCLUSION: PICC line insertion into the right basilic vein. 0.2 minutes of fluoroscopy time was utilized for this procedure. Some fluoroscopic images are performed with last image hold technology. These images require no additional radiation. <Electronically signed by Kaylee Restrepo > 05/20/21 1557 <Electronically signed by Eric Quinones > 05/20/21 1614
--- NOTE | 2021-05-20 16:21 | REP ---
INDICATION: assess swallowing. COMPARISON: None. TECHNIQUE: The procedure was performed by Kaylee Restrepo [facility], under the direct supervision of Dr. Quinones. The procedure was performed with Danielle Perez from speech pathology present. 5 ml aliquots of pudding and honey thick consistency barium was administered. FINDINGS: Aspiration was visualized during the exam. The detailed report of this examination will be provided by speech pathology. IMPRESSION: Aspiration was visualized, a detailed report will be provided by speech pathology. 2.1 minutes of fluoroscopy time was utilized for this procedure. Some fluoroscopic images are performed with last image hold technology. These images require no additional radiation <Electronically signed by Kaylee Restrepo > 05/20/21 1556 <Electronically signed by Eric Quinones > 05/20/21 [id number]
[2021-05-20] MEDS ORDERED: FAT EMULSION IV 20% 500 ML IV SCH (18:00)
[2021-05-20] MEDS ORDERED: AMINO AC/ELECTROLYTE/DEX/CALC 2,000 ML IV SCH (18:00)
--- NOTE | 2021-05-20 18:03 | IPNPDOC ---
Text Note Date of Service The patient was seen on 05/20/21. NOTE Subjective: Patient was able to communicate with me in the morning, he answered my questions. Objective: GENERAL APPEARANCE: Somnolent male HEENT: no scleral icterus, no JVD, EOMI CARDIOVASCULAR: S1S2 LUNGS: CTA ABDOMEN: soft & not tender w palpitation MUSCULOSKELETAL: no cyanosis, no swelling INTEGUMENT: no generalized pallor NEUROLOGICAL: follows commands, speech slow but not dysarthric Assessment and plan Patient is an 86 year old male with NIDDM2, hypertension, and prostate cancer was admitted to the hospital with metabolic encephalopathy. Patient was found to have acute CVA at anteromedial left thalamus, right precentral gyrus, and deep white matter lacunar infarct. He had subacute infarcts in the left putaminal/skelton radiata lacunar infarct. He was also found to have probable severe stenosis involving the bilateral posterior cerebral arteries. Metabolic encephalopathy Most likely secondary to acute stroke and possible UTI Patient was able to communicate with me today. There is some improvement Multiple acute and subacute CVA/severe oropharyngeal dysfunction Most likely cardioembolic etiology. 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 He also has subacute infarcts in the left putaminal/skelton radiata PT/OT patient was found to have severe oropharyngeal dysfunction. Patient currently nothing by mouth. TPN started Await neurologist consult Aspirin per rectum Chronic urinary retention 2/2 BPH/UTI -Covarrubias catheter -Patient will need to follow up outpatient with urology Patient completed course of antibiotics dementia -Patient will either need 24/ care or placement History of acoustic neuroma s/p gamma knife procedure Patient is hard of hearing Diabetes mellitus On sliding scale insulin Hypertension Blood pressure under control Hypokalemia Replaced VS,Fishbone, I+O VS, Fishbone, I+O Laboratory Tests 05/20/21 05:30 Vital Signs Date Time Temp Pulse Resp B/P (MAP) Pulse Ox O2 Delivery O2 Flow Rate FiO2 05/20/21 15:30 98.0 83 16 142/86 (104) 95 Room Air 05/19/21 17:20 100 05/16/21 14:00 0.0 I&O- Last 24 Hours up to 6 AM 05/20/21 06:00 Intake Total 775 ml Output Total 2802 ml Balance -2026 ml ANY PUGA DO May 20, 2021 18:02
[2021-05-20 22:00] VITALS: BP 157/84
[2021-05-21] MEDS: HumaLOG INSULIN (NovoLOG) PER UNIT SC SCH ×7 (00:33→23:58)
[2021-05-21 06:00] VITALS: BP 154/90
[2021-05-21 06:34] LABS: HEMATOCRIT 39.7 % (42.0-52.0); HEMOGLOBIN 12.9 g/dl (13.5-17.5); MEAN CORPUSCULAR HEMOGLOBIN 30.5 pg (27.0-33.0); MEAN CORPUSCULAR HGB CONC 32.5 g/dl (32.0-36.5); MEAN CORPUSCULAR VOLUME 93.9 fl (80.0-96.0); PLATELET COUNT, AUTOMATED 362 10^3/uL (150-450); RED BLOOD COUNT 4.23 10^6/uL (4.30-6.10); WHITE BLOOD COUNT 7.8 10^3/uL (4.0-10.0)
[2021-05-21 06:55] LABS: BLOOD UREA NITROGEN 12 MG/DL (7-18); CALCIUM LEVEL 8.9 MG/DL (8.8-10.2); CARBON DIOXIDE LEVEL 31 MEQ/L (21-32); CHLORIDE LEVEL 103 MEQ/L (98-107); CREATININE FOR GFR 0.68 MG/DL (0.70-1.30); GLOMERULAR FILTRATION RATE > 60.0 (>35); GLUCOSE, FASTING 148 MG/DL (70-100); POTASSIUM SERUM 3.6 MEQ/L (3.5-5.1); SODIUM LEVEL 138 MEQ/L (136-145)
[2021-05-21] MEDS: FINASTERIDE 5 MG TAB PO SCH (09:00)
[2021-05-21] MEDS: amLODIPine 5 MG TAB PO SCH (09:00)
[2021-05-21] MEDS: ATORVASTATIN 20 MG TAB PO SCH (09:00)
[2021-05-21] MEDS: DOCUSATE SODIUM 100MG CAPSULE PO SCH (09:00)
[2021-05-21] MEDS: CLOPIDOGREL 75 MG TAB PO SCH (09:00)
[2021-05-21] MEDS: FOLIC ACID 1 MG TAB PO SCH (09:00)
[2021-05-21] MEDS: ENOXAPARIN 40MG/0.4ML SYRINGE (J1650 PER 10MG) SC SCH (09:25)
[2021-05-21] MEDS: ASPIRIN 300 MG SUPP PR SCH (09:25)
--- NOTE | 2021-05-21 10:30 | T-ECHO ---
TRANSESOPHAGEAL ECHO DATE: 05/19/2021 REFERRING PHYSICIAN: Dr. Brian Dillon. PREPROCEDURE DIAGNOSIS: Bilateral unexplained cerebral strokes. POSTPROCEDURE DIAGNOSIS: Bilateral unexplained cerebral strokes. FINDINGS: Bilateral unexplained cerebral strokes. PROCEDURE PERFORMED: Failed attempt at transesophageal echocardiogram. PROCEDURE PERFORMED BY: Dhruv Lake MD. BEAM PRESS OPERATOR: None. INTRAVENOUS (IV) SEDATION: Cetacaine spray to the back of the pharynx. Propofol IV per SERVICE COUNSELOR. ESTIMATED BLOOD LOSS: Less than 1 mL. No blood products replaced. DRAINS: No drains. COMPLICATIONS: No complications. PROCEDURE DESCRIPTION: Patient received Cetacaine spray to the back of the pharynx. After receiving adequate sedation with Propofol per SERVICE COUNSELOR, multiple attempts were made to get the 3D transesophageal echocardiogram probe into the esophagus by Dr. Lake, but these were unsuccessful. I was able to feel a prominent forward protruding C-spine at the back of the pharynx which was making the space into the esophagus from the back of the pharynx very difficult. After multiple failed attempts at getting esophageal probe into the esophagus, I abandoned the procedure. ALBINA, therefore, could not be completed.
[2021-05-21 14:00] VITALS: BP 152/88
--- NOTE | 2021-05-21 14:17 | IPNPDOC ---
Text Note Date of Service The patient was seen on 05/21/21. NOTE Subjective: Patient is doing much better today. He is alert, oriented and awake. He responded my questions appropriately Objective: GENERAL APPEARANCE: NAD HEENT: no scleral icterus, no JVD, EOMI CARDIOVASCULAR: S1S2 LUNGS: CTA ABDOMEN: soft & not tender w palpitation MUSCULOSKELETAL: no cyanosis, no swelling INTEGUMENT: no generalized pallor NEUROLOGICAL: follows commands, speech slow but not dysarthric, left mouth droop Assessment and plan Patient is an 86 year old male with NIDDM2, hypertension, and prostate cancer was admitted to the hospital with metabolic encephalopathy. Patient was found to have acute CVA at anteromedial left thalamus, right precentral gyrus, and deep white matter lacunar infarct. He had subacute infarcts in the left putaminal/skelton radiata lacunar infarct. He was also found to have probable severe stenosis involving the bilateral posterior cerebral arteries. Metabolic encephalopathy Most likely secondary to acute stroke and possible UTI Resolved today Multiple acute and subacute CVA/severe oropharyngeal dysfunction Most likely cardioembolic etiology. 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 He also has subacute infarcts in the left putaminal/skelton radiata Continue PT/OT patient was found to have severe oropharyngeal dysfunction. Patient currently nothing by mouth. TPN started Await neurologist consult Aspirin per rectum Chronic urinary retention 2/2 BPH/UTI -Covarrubias catheter -Patient will need to follow up outpatient with urology. Patient completed course of antibiotics dementia -Patient will either need 24/7 care or placement. Family can't provide 24/7, most likely patient will need subacute rehabilitation History of acoustic neuroma s/p gamma knife procedure Patient is hard of hearing Diabetes mellitus On sliding scale insulin Hypertension Blood pressure under control Hypokalemia Replaced VS,Fishbone, I+O VS, Fishbone, I+O Laboratory Tests 05/21/21 05:11 Vital Signs Date Time Temp Pulse Resp B/P (MAP) Pulse Ox O2 Delivery O2 Flow Rate FiO2 05/21/21 06:00 98.0 84 18 154/90 (111) 96 05/20/21 15:30 Room Air 05/19/21 17:20 100 6/18/21 14:00 0.0 I&O- Last 24 Hours up to 6 AM 05/21/21 06:00 Intake Total 120 ml Output Total 2000 ml Balance -1880 ml ANY PUGA DO May 21, 2021 14:17
[2021-05-21] MEDS ORDERED: FAT EMULSION IV 20% 500 ML IV SCH (18:00)
[2021-05-21] MEDS ORDERED: MULTIVITAMIN -ADULT INJECTION 10 ML, CR/CU/SE/MN/ZN INJ 1 ML in AMINO AC/ELECTROLYTE/DE... IV SCH (18:00)
[2021-05-21] MEDS ORDERED: SODIUM CHLORIDE 0.9% INJ 10 ML SYR IV PRN (21:40)
[2021-05-21 22:00] VITALS: BP 151/83
[2021-05-22 06:00] VITALS: BP 146/88
[2021-05-22] MEDS: HumaLOG INSULIN (NovoLOG) PER UNIT SC SCH ×4 (06:00→18:15)
[2021-05-22 06:11] LABS: HEMATOCRIT 39.9 % (42.0-52.0); HEMOGLOBIN 13.1 g/dl (13.5-17.5); MEAN CORPUSCULAR HEMOGLOBIN 30.5 pg (27.0-33.0); MEAN CORPUSCULAR HGB CONC 32.8 g/dl (32.0-36.5); PLATELET COUNT, AUTOMATED 362 10^3/uL (150-450); RED BLOOD COUNT 4.29 10^6/uL (4.30-6.10); WHITE BLOOD COUNT 8.4 10^3/uL (4.0-10.0)
[2021-05-22] MEDS: SODIUM CHLORIDE 0.9% INJ 10 ML SYR IV SCH ×2 (06:27→18:15)
[2021-05-22 06:47] LABS: BLOOD UREA NITROGEN 19 MG/DL (7-18); CALCIUM LEVEL 8.4 MG/DL (8.8-10.2); CARBON DIOXIDE LEVEL 29 MEQ/L (21-32); CHLORIDE LEVEL 104 MEQ/L (98-107); CREATININE FOR GFR 0.72 MG/DL (0.70-1.30); GLOMERULAR FILTRATION RATE > 60.0 (>35); GLUCOSE, FASTING 184 MG/DL (70-100); POTASSIUM SERUM 3.6 MEQ/L (3.5-5.1); SODIUM LEVEL 137 MEQ/L (136-145)
[2021-05-22] MEDS: ASPIRIN 300 MG SUPP PR SCH (08:22)
[2021-05-22] MEDS: ENOXAPARIN 40MG/0.4ML SYRINGE (J1650 PER 10MG) SC SCH (08:22)
--- NOTE | 2021-05-22 12:52 | REP ---
INDICATION: PNA. COMPARISON: 05/09/2021. TECHNIQUE: Single portable AP view of the chest was performed. FINDINGS: Elevation of the left hemidiaphragm is unchanged. There are bibasilar interstitial opacities which are stable. Heart mediastinum are unchanged. A right arm PICC line is seen with tip in the superior vena cava. IMPRESSION: The lungs are unchanged in appearance. <Electronically signed by Eric Quinones > 05/22/21 [id number]
[2021-05-22 13:08] LABS: ALBUMIN 2.8 GM/DL (3.2-5.2); BILIRUBIN,DIRECT 0.1 MG/DL (0.0-0.2); BILIRUBIN,TOTAL 0.2 MG/DL (0.2-1.0); TOTAL PROTEIN 6.2 GM/DL (6.4-8.2)
--- NOTE | 2021-05-22 13:58 | REP ---
INDICATION: AMS, recent CVA. COMPARISON: Comparison CT studies are from May 16, 2021 and May 14, 2021. A May 13, 2021 MRI study is reviewed.. TECHNIQUE: Helical scanning is acquired. 5 mm axial images were reformatted. Coronal MPR images were generated. FINDINGS: Bone window settings demonstrate intact bony calvarium. The visualized paranasal sinuses are clear. Digital stretching machine tender frame view is unremarkable. There is mild vascular calcification in the distal internal carotid and vertebral arteries as before. On soft tissue window settings there is generalized volume loss. Old lacunar infarcts are seen in the left thalamus and right lentiform nucleus. The recent lacunar infarct identified in the medial aspect of the left basal ganglia is less conspicuous today compared to the May 14 and May 16, 2020 studies. No evidence of intracranial hemorrhage here or elsewhere. No new infarct is appreciated. There is small vessel changes in the periventricular white matter as on prior studies. IMPRESSION: Vascular calcification, generalized volume loss, small vessel atherosclerotic changes, and old bilateral basal ganglia infarcts. The recent basal ganglia infarct on the left is less conspicuous today but no chucho hemorrhage is seen. No new infarct is appreciated.. <Electronically signed by Iraj Lara > 05/22/21 [id number]
[2021-05-22 14:00] VITALS: BP 160/88
--- NOTE | 2021-05-22 14:37 | IPNPDOC ---
Text Note Date of Service The patient was seen on 05/22/21. NOTE Subjective: Patient was more lethargic today in the morning, somnolent, barely follows command. Subsequently around 3 PM patient became more alert, awake and responsive to questions Objective: GENERAL APPEARANCE: NAD HEENT: no scleral icterus, no JVD, EOMI CARDIOVASCULAR: S1S2 LUNGS: Rhonchi bilaterally over tracheal area ABDOMEN: soft & not tender w palpitation MUSCULOSKELETAL: no cyanosis, no swelling INTEGUMENT: no generalized pallor NEUROLOGICAL: Left mouth droop, moves 4 limbs, no nuchal rigidity, follows command Assessment and plan Patient is an 86 year old male with NIDDM2, hypertension, and prostate cancer was admitted to the hospital with metabolic encephalopathy. Patient was found to have acute CVA at anteromedial left thalamus, right precentral gyrus, and deep white matter lacunar infarct. He had subacute infarcts in the left putaminal/skelton radiata lacunar infarct. He was also found to have probable severe stenosis involving the bilateral posterior cerebral arteries. Metabolic encephalopathy/delirium Most likely secondary to acute stroke and possible UTI Patient became somnolent today. Later today patient became more alert and awake. There is possibility for delirium given fluctuating mental status Multiple acute and subacute CVA/severe oropharyngeal dysfunction/deconditioning Most likely cardioembolic etiology. 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 He also has subacute infarcts in the left putaminal/skelton radiata Continue PT/OT Continue speech evaluation daily I talked to his son, family requested to start anticoagulation. patient was found to have severe oropharyngeal dysfunction. Patient currently nothing by mouth. Continue TPN Await neurologist consult Aspirin per rectum CT head on 05/22/21 negative for bleed. Talked to Dr. De León , he does not rec MRI of brain for now LFT and ammonia level unremarkable Repeated x-ray showed Elevation of the left hemidiaphragm is unchanged. There are bibasilar interstitial opacities which are stable Chronic urinary retention 2/2 BPH/UTI -Covarrubias catheter -Patient will need to follow up outpatient with urology Patient completed course of antibiotics dementia/delirium -Patient will either need 24/7 care or placement. Family can't provide 24/7, most likely patient will need subacute rehabilitation Frequent re orientation History of acoustic neuroma s/p gamma knife procedure Patient is hard of hearing Diabetes mellitus On sliding scale insulin Hypertension Blood pressure under control Hypokalemia Replaced VS,Fishbone, I+O VS, Fishbone, I+O Laboratory Tests 05/22/21 05:34 Vital Signs Date Time Temp Pulse Resp B/P (MAP) Pulse Ox O2 Delivery O2 Flow Rate FiO2 05/22/21 14:00 98.6 83 22 160/88 (112) 95 Room Air 05/19/21 17:20 100 05/16/21 14:00 0.0 I&O- Last 24 Hours up to 6 AM 05/22/21 06:00 Intake Total 900 ml Output Total 1625 ml Balance -725 ml ANY PUGA DO May 22, 2021 14:37
[2021-05-22 15:00] VITALS: BP 166/92
[2021-05-22] MEDS ORDERED: FUROSEMIDE 40MG/4ML VIAL (J1940) IV ONE (15:00)
[2021-05-22] MEDS ORDERED: hydrALAZINE 20MG/ML 1ML VIAL (J0360 PER 20MG) IV PRN (15:00)
[2021-05-22 16:00] VITALS: BP 140/80
[2021-05-22] MEDS ORDERED: ENOXAPARIN 80MG/0.8ML SYRINGE (J1650 PER 10MG) SC SCH (17:00)
[2021-05-22] MEDS ORDERED: AMINO AC/ELECTROLYTE/DEX/CALC 2,000 ML IV SCH (18:00)
[2021-05-22] MEDS ORDERED: FAT EMULSION IV 20% 500 ML IV SCH (18:00)
[2021-05-22] MEDS: ENOXAPARIN 80MG/0.8ML SYRINGE (J1650 PER 10MG) SC SCH (18:14)
[2021-05-22 20:00] VITALS: BP 125/79
[2021-05-22] MEDS ORDERED: RAMELTEON 8 MG TAB (ROZEREM) PO SCH (21:00)
[2021-05-23] VITALS: BP 151/83
[2021-05-23] MEDS: HumaLOG INSULIN (NovoLOG) PER UNIT SC SCH ×4 (00:09→18:27)
[2021-05-23 04:00] VITALS: BP 126/74
[2021-05-23 05:30] LABS: HEMATOCRIT 40.3 % (42.0-52.0); HEMOGLOBIN 13.2 g/dl (13.5-17.5); MEAN CORPUSCULAR HEMOGLOBIN 30.5 pg (27.0-33.0); MEAN CORPUSCULAR HGB CONC 32.8 g/dl (32.0-36.5); MEAN CORPUSCULAR VOLUME 93.1 fl (80.0-96.0); PLATELET COUNT, AUTOMATED 360 10^3/uL (150-450); RED BLOOD COUNT 4.33 10^6/uL (4.30-6.10); WHITE BLOOD COUNT 8.3 10^3/uL (4.0-10.0)
[2021-05-23 05:58] LABS: BLOOD UREA NITROGEN 24 MG/DL (7-18); CALCIUM LEVEL 8.7 MG/DL (8.8-10.2); CARBON DIOXIDE LEVEL 33 MEQ/L (21-32); CHLORIDE LEVEL 102 MEQ/L (98-107); GLOMERULAR FILTRATION RATE > 60.0 (>35); GLUCOSE, FASTING 146 MG/DL (70-100); POTASSIUM SERUM 3.4 MEQ/L (3.5-5.1); SODIUM LEVEL 136 MEQ/L (136-145)
[2021-05-23] MEDS: SODIUM CHLORIDE 0.9% INJ 10 ML SYR IV SCH ×2 (06:04→11:03)
[2021-05-23 08:00] VITALS: BP 132/76
[2021-05-23] MEDS ORDERED: KCL 10MEQ/100ML SWI (KRUN) 10 MEQ in IV 1 EA IV ONE (08:15)
[2021-05-23] MEDS: ASPIRIN 300 MG SUPP PR SCH (09:33)
[2021-05-23] MEDS: ENOXAPARIN 80MG/0.8ML SYRINGE (J1650 PER 10MG) SC SCH ×2 (09:33→20:37)
[2021-05-23 12:00] VITALS: BP 135/73
--- NOTE | 2021-05-23 14:54 | IPNPDOC ---
Text Note Date of Service The patient was seen on 05/23/21. NOTE Subjective: Patient somnolent in the morning. No fever or chills Objective: GENERAL APPEARANCE: NAD HEENT: no scleral icterus, no JVD, EOMI CARDIOVASCULAR: S1S2 LUNGS: Rhonchi bilaterally over tracheal area ABDOMEN: soft & not tender w palpitation MUSCULOSKELETAL: no cyanosis, no swelling INTEGUMENT: no generalized pallor NEUROLOGICAL: Left mouth droop, moves 4 limbs, no nuchal rigidity, follows command Assessment and plan Patient is an 86 year old male with NIDDM2, hypertension, and prostate cancer was admitted to the hospital with metabolic encephalopathy. Patient was found to have acute CVA at anteromedial left thalamus, right precentral gyrus, and deep white matter lacunar infarct. He had subacute infarcts in the left putaminal/skelton radiata lacunar infarct. He was also found to have probable severe stenosis involving the bilateral posterior cerebral arteries. Metabolic encephalopathy/delirium Most likely secondary to acute stroke and possible UTI resolved Multiple acute and subacute CVA/severe oropharyngeal dysfunction/deconditioning Most likely cardioembolic etiology. 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 He also has subacute infarcts in the left putaminal/skelton radiata Continue PT/OT Continue speech evaluation daily I talked to his son, family requested to start anticoagulation. patient was found to have severe oropharyngeal dysfunction. Patient currently nothing by mouth. Continue TPN Await neurologist consult Aspirin per rectum CT head on 05/22/21 negative for bleed. Talked to Dr. De León , he does not rec MRI of brain for now LFT and ammonia level unremarkable Repeated x-ray showed Elevation of the left hemidiaphragm is unchanged. There are bibasilar interstitial opacities which are stable Chronic urinary retention 2/2 BPH/UTI -Covarrubias catheter -Patient will need to follow up outpatient with urology Patient completed course of antibiotics dementia/delirium -Patient will either need 24/7 care or placement. Family can't provide 24/7, most likely patient will need subacute rehabilitation Frequent re orientation History of acoustic neuroma s/p gamma knife procedure Patient is hard of hearing Diabetes mellitus On sliding scale insulin Hypertension Blood pressure under control Hypokalemia Replaced VS,Fishbone, I+O VS, Fishbone, I+O Laboratory Tests 05/23/21 04:59 Vital Signs Date Time Temp Pulse Resp B/P (MAP) Pulse Ox O2 Delivery O2 Flow Rate FiO2 05/23/21 12:00 93 18 95 05/23/21 12:00 97.1 135/73 (93) Room Air 05/19/21 17:20 100 l I&O- Last 24 Hours up to 6 AM 05/23/21 06:00 Intake Total 825 ml Output Total 1950 ml Balance -1125 ml ANY PUGA DO May 23, 2021 14:54
[2021-05-23 16:00] VITALS: BP 125/59
[2021-05-23] MEDS ORDERED: AMINO AC/ELECTROLYTE/DEX/CALC 2,000 ML IV SCH (18:00)
[2021-05-23] MEDS ORDERED: FAT EMULSION IV 20% 500 ML IV SCH (18:00)
[2021-05-23 20:00] VITALS: BP 122/62
[2021-05-24] VITALS: BP 121/67
[2021-05-24] MEDS: HumaLOG INSULIN (NovoLOG) PER UNIT SC SCH ×4 (00:51→17:59)
[2021-05-24 04:00] VITALS: BP 124/63
[2021-05-24] MEDS: SODIUM CHLORIDE 0.9% INJ 10 ML SYR IV SCH ×2 (06:38→17:59)
[2021-05-24 07:58] VITALS: BP 115/75
[2021-05-24 08:30] LABS: BASO # 0.1 10^3/uL (0.0-0.2); BASO % 0.7 % (0.0-1.0); EOS # 0.4 10^3/uL (0.0-0.5); EOS % 4.6 % (0.0-3.0); HEMATOCRIT 41.5 % (42.0-52.0); HEMOGLOBIN 13.6 g/dl (13.5-17.5); LYMPH # 1.4 10^3/uL (1.5-5.0); LYMPH % 16.6 % (24.0-44.0); MEAN CORPUSCULAR HEMOGLOBIN 30.6 pg (27.0-33.0); MEAN CORPUSCULAR HGB CONC 32.8 g/dl (32.0-36.5); MEAN CORPUSCULAR VOLUME 93.3 fl (80.0-96.0); MONO # 0.5 10^3/uL (0.0-0.8); MONO % 5.6 % (2.0-8.0); NEUTROPHILS # 5.9 10^3/uL (1.5-8.5); NEUTROPHILS % 71.8 % (36.0-66.0); PLATELET COUNT, AUTOMATED 328 10^3/uL (150-450); RED BLOOD COUNT 4.45 10^6/uL (4.30-6.10); WHITE BLOOD COUNT 8.3 10^3/uL (4.0-10.0)
[2021-05-24 09:00] LABS: ALBUMIN 2.6 GM/DL (3.2-5.2); ALT/SGPT 8 U/L (12-78); BILIRUBIN,TOTAL 0.2 MG/DL (0.2-1.0); BLOOD UREA NITROGEN 25 MG/DL (7-18); CALCIUM LEVEL 8.4 MG/DL (8.8-10.2); CARBON DIOXIDE LEVEL 30 MEQ/L (21-32); CHLORIDE LEVEL 103 MEQ/L (98-107); CREATININE FOR GFR 0.71 MG/DL (0.70-1.30); GLOMERULAR FILTRATION RATE > 60.0 (>35); GLUCOSE, FASTING 153 MG/DL (70-100); MAGNESIUM LEVEL 2.2 MG/DL (1.8-2.4); POTASSIUM SERUM 3.8 MEQ/L (3.5-5.1); SODIUM LEVEL 138 MEQ/L (136-145); TOTAL PROTEIN 6.1 GM/DL (6.4-8.2)
[2021-05-24] MEDS: ASPIRIN 300 MG SUPP PR SCH (09:05)
[2021-05-24] MEDS: ENOXAPARIN 80MG/0.8ML SYRINGE (J1650 PER 10MG) SC SCH ×2 (09:06→21:36)
--- NOTE | 2021-05-24 10:52 | IPNPDOC ---
Text Note Date of Service The patient was seen on 05/24/21. NOTE Subjective: Patient somnolent in the morning, but was able to respond me. No fever overnight Objective: GENERAL APPEARANCE: NAD HEENT: no scleral icterus, no JVD, EOMI CARDIOVASCULAR: S1S2 LUNGS: Rhonchi bilaterally over tracheal area ABDOMEN: soft & not tender w palpitation MUSCULOSKELETAL: no cyanosis, no swelling INTEGUMENT: no generalized pallor NEUROLOGICAL: Left mouth droop, moves 4 limbs, no nuchal rigidity, follows command Assessment and plan Patient is an 86 year old male with NIDDM2, hypertension, and prostate cancer was admitted to the hospital with metabolic encephalopathy. Patient was found to have acute CVA at anteromedial left thalamus, right precentral gyrus, and deep white matter lacunar infarct. He had subacute infarcts in the left putaminal/c smitha radiata lacunar infarct. He was also found to have probable severe stenosis involving the bilateral posterior cerebral arteries. Metabolic encephalopathy/delirium Most likely secondary to acute stroke and possible UTI resolved Multiple acute and subacute CVA/severe oropharyngeal dysfunction/deconditioning Most likely cardioembolic etiology. 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 He also has subacute infarcts in the left putaminal/skelton radiata Continue PT/OT Continue speech evaluation daily I talked to his son, family requested to start anticoagulation. Patient is on the therapeutic dose of Lovenox patient was found to have severe oropharyngeal dysfunction. Patient currently nothing by mouth. Continue TPN Await neurologist consult Aspirin per rectum CT head on 05/22/21 negative for bleed. LFT and ammonia level unremarkable Repeated x-ray on 05/22/21 showed Elevation of the left hemidiaphragm is unchanged. There are bibasilar interstitial opacities which are stable Chronic urinary retention 2/2 BPH/UTI -Covarrubias catheter -Patient will need to follow up outpatient with urology Patient completed course of antibiotics dementia/delirium -Patient will either need 24/7 care or placement. Family can't provide 24/7, most likely patient will need subacute rehabilitation Frequent re orientation History of acoustic neuroma s/p gamma knife procedure Patient is hard of hearing Diabetes mellitus On sliding scale insulin Hypertension Blood pressure under control Hypokalemia Replaced Patient transferred to [facility] VS,Anne, I+O VSAnne, I+O Laboratory Tests 05/24/21 08:14 Vital Signs Date Time Temp Pulse Resp B/P (MAP) Pulse Ox O2 Delivery O2 Flow Rate FiO2 05/24/21 07:58 98.3 92 18 115/75 (88) 95 Room Air 05/19/21 17:20 100 I&O- Last 24 Hours up to 6 AM 05/24/21 06:00 Intake Total 1000 ml Output Total 1350 ml Balance -350 ml ANY PUGA DO May 24, 2021 10:52
[2021-05-24] MEDS ORDERED: FAT EMULSION IV 20% 500 ML IV SCH (18:00)
[2021-05-24] MEDS ORDERED: AMINO AC/ELECTROLYTE/DEX/CALC 2,000 ML IV SCH (18:00)
[2021-05-24] MEDS ORDERED: HumaLOG INSULIN (NovoLOG) PER UNIT SC SCH (18:00)
[2021-05-24 19:00] VITALS: BP 133/82
[2021-05-25] MEDS: HumaLOG INSULIN (NovoLOG) PER UNIT SC SCH ×5 (00:14→23:46)
[2021-05-25] MEDS: SODIUM CHLORIDE 0.9% INJ 10 ML SYR IV SCH ×2 (05:50→18:38)
[2021-05-25 06:00] VITALS: BP 136/76
[2021-05-25 06:55] LABS: BASO # 0.1 10^3/uL (0.0-0.2); BASO % 0.8 % (0.0-1.0); EOS # 0.3 10^3/uL (0.0-0.5); EOS % 3.6 % (0.0-3.0); HEMOGLOBIN 13.6 g/dl (13.5-17.5); LYMPH # 1.3 10^3/uL (1.5-5.0); LYMPH % 17.7 % (24.0-44.0); MEAN CORPUSCULAR HEMOGLOBIN 30.6 pg (27.0-33.0); MEAN CORPUSCULAR HGB CONC 32.4 g/dl (32.0-36.5); MEAN CORPUSCULAR VOLUME 94.6 fl (80.0-96.0); MONO # 0.4 10^3/uL (0.0-0.8); NEUTROPHILS # 5.1 10^3/uL (1.5-8.5); NEUTROPHILS % 71.1 % (36.0-66.0); PLATELET COUNT, AUTOMATED 321 10^3/uL (150-450); RED BLOOD COUNT 4.44 10^6/uL (4.30-6.10); WHITE BLOOD COUNT 7.2 10^3/uL (4.0-10.0)
[2021-05-25 07:15] LABS: ALBUMIN 2.8 GM/DL (3.2-5.2); ALT/SGPT 9 U/L (12-78); BILIRUBIN,TOTAL 0.3 MG/DL (0.2-1.0); BLOOD UREA NITROGEN 25 MG/DL (7-18); CALCIUM LEVEL 8.2 MG/DL (8.8-10.2); CARBON DIOXIDE LEVEL 31 MEQ/L (21-32); CHLORIDE LEVEL 100 MEQ/L (98-107); CREATININE FOR GFR 0.78 MG/DL (0.70-1.30); GLOMERULAR FILTRATION RATE > 60.0 (>35); GLUCOSE, FASTING 169 MG/DL (70-100); MAGNESIUM LEVEL 2.2 MG/DL (1.8-2.4); POTASSIUM SERUM 3.9 MEQ/L (3.5-5.1); SODIUM LEVEL 136 MEQ/L (136-145); TOTAL PROTEIN 6.3 GM/DL (6.4-8.2)
[2021-05-25] MEDS: ASPIRIN 300 MG SUPP PR SCH (09:24)
[2021-05-25] MEDS: ENOXAPARIN 80MG/0.8ML SYRINGE (J1650 PER 10MG) SC SCH ×2 (09:24→20:41)
[2021-05-25 10:30] VITALS: BP_SYST 102; BP_SYST 134; BP_DIAS 66; BP_DIAS 80
[2021-05-25] MEDS ORDERED: NS 1,000 ML IV ONE (10:45)
[2021-05-25] MEDS ORDERED: AMINO AC/ELECTROLYTE/DEX/CALC 2,000 ML IV SCH (18:00)
[2021-05-25] MEDS ORDERED: FAT EMULSION IV 20% 500 ML IV SCH (18:00)
[2021-05-26] MEDS: HumaLOG INSULIN (NovoLOG) PER UNIT SC SCH ×7 (05:15→18:28)
[2021-05-26] MEDS: SODIUM CHLORIDE 0.9% INJ 10 ML SYR IV SCH ×2 (05:15→18:22)
[2021-05-26 06:00] VITALS: BP 140/83
[2021-05-26 06:40] LABS: BASO # 0.1 10^3/uL (0.0-0.2); EOS # 0.3 10^3/uL (0.0-0.5); EOS % 4.7 % (0.0-3.0); HEMATOCRIT 40.2 % (42.0-52.0); HEMOGLOBIN 12.9 g/dl (13.5-17.5); LYMPH # 1.3 10^3/uL (1.5-5.0); LYMPH % 20.6 % (24.0-44.0); MEAN CORPUSCULAR HEMOGLOBIN 30.2 pg (27.0-33.0); MEAN CORPUSCULAR HGB CONC 32.1 g/dl (32.0-36.5); MEAN CORPUSCULAR VOLUME 94.1 fl (80.0-96.0); MONO # 0.4 10^3/uL (0.0-0.8); MONO % 6.1 % (2.0-8.0); NEUTROPHILS # 4.2 10^3/uL (1.5-8.5); NEUTROPHILS % 67.1 % (36.0-66.0); PLATELET COUNT, AUTOMATED 311 10^3/uL (150-450); RED BLOOD COUNT 4.27 10^6/uL (4.30-6.10); WHITE BLOOD COUNT 6.2 10^3/uL (4.0-10.0)
[2021-05-26 07:05] LABS: ALBUMIN 2.7 GM/DL (3.2-5.2); ALT/SGPT 9 U/L (12-78); BILIRUBIN,TOTAL 0.2 MG/DL (0.2-1.0); BLOOD UREA NITROGEN 20 MG/DL (7-18); CALCIUM LEVEL 8.2 MG/DL (8.8-10.2); CARBON DIOXIDE LEVEL 29 MEQ/L (21-32); CHLORIDE LEVEL 106 MEQ/L (98-107); CREATININE FOR GFR 0.67 MG/DL (0.70-1.30); GLOMERULAR FILTRATION RATE > 60.0 (>35); GLUCOSE, FASTING 153 MG/DL (70-100); MAGNESIUM LEVEL 2.2 MG/DL (1.8-2.4); SODIUM LEVEL 139 MEQ/L (136-145)
[2021-05-26] MEDS: ENOXAPARIN 80MG/0.8ML SYRINGE (J1650 PER 10MG) SC SCH ×2 (09:56→21:38)
[2021-05-26] MEDS: ASPIRIN 300 MG SUPP PR SCH (09:56)
[2021-05-26 10:22] VITALS: BP 135/81
--- NOTE | 2021-05-26 12:14 | REP ---
INDICATION: chnage in mentation COMPARISON: 05/22/2021 TECHNIQUE: Axial noncontrast images from the skull base to the thoracic inlet with coronal reformations. This CT examination was performed using the following dose reduction techniques: Automated exposure control, adjustment of mA and/or kv according to the patient's size, and use of iterative reconstruction technique. FINDINGS: Atrophy with periventricular leukomalacia and microvascular ischemic changes are appreciated. The ventricles and sulci are symmetric. Quinones-white differentiation is maintained. There is no evidence for acute intracranial hemorrhage, mass/mass effect, pathology or infarction. No extra-axial fluid collection. Calvarium is intact. Paranasal sinuses and mastoid air cells are clear. IMPRESSION: Atrophy and microvascular ischemic changes. No acute intracranial hemorrhage, infarction, or mass/mass effect. <Electronically signed by Alan Lee > 05/26/21 [id number]
[2021-05-26 12:53] LABS: ABG BASE EXCESS 2.4 (-2.0-2.0); ABG HCO3 27.9 MEQ/L (22.0-26.0); ABG O2 SATURATION 94.2 % (95.0-99.0); ABG PARTIAL PRESSURE CO2 46.6 mmHg (35.0-45.0); ABG PARTIAL PRESSURE O2 70.3 mmHg (75.0-100.0); ABG STANDARD HCO3 26.5 MEQ/L (22.0-26.0); ABG TOTAL CO2 29.3 MEQ/L (23.0-31.0); ABG pH (ARTERIAL) 7.395 UNITS (7.350-7.450)
[2021-05-26] MEDS ORDERED: AMINO AC/ELECTROLYTE/DEX/CALC 2,000 ML IV SCH (18:00)
[2021-05-26] MEDS ORDERED: FAT EMULSION IV 20% 500 ML IV SCH (18:00)
[2021-05-27] MEDS: HumaLOG INSULIN (NovoLOG) PER UNIT SC SCH ×4 (00:23→18:32)
[2021-05-27 05:20] VITALS: BP 167/97
[2021-05-27] MEDS: SODIUM CHLORIDE 0.9% INJ 10 ML SYR IV SCH ×2 (06:13→18:32)
[2021-05-27 06:54] LABS: BASO # 0.1 10^3/uL (0.0-0.2); BASO % 1.1 % (0.0-1.0); EOS # 0.3 10^3/uL (0.0-0.5); EOS % 4.7 % (0.0-3.0); HEMATOCRIT 38.9 % (42.0-52.0); HEMOGLOBIN 12.6 g/dl (13.5-17.5); LYMPH # 1.2 10^3/uL (1.5-5.0); LYMPH % 22.3 % (24.0-44.0); MEAN CORPUSCULAR HEMOGLOBIN 30.4 pg (27.0-33.0); MEAN CORPUSCULAR HGB CONC 32.4 g/dl (32.0-36.5); MEAN CORPUSCULAR VOLUME 93.7 fl (80.0-96.0); MONO # 0.4 10^3/uL (0.0-0.8); MONO % 7.6 % (2.0-8.0); NEUTROPHILS # 3.6 10^3/uL (1.5-8.5); NEUTROPHILS % 63.8 % (36.0-66.0); PLATELET COUNT, AUTOMATED 276 10^3/uL (150-450); RED BLOOD COUNT 4.15 10^6/uL (4.30-6.10); WHITE BLOOD COUNT 5.6 10^3/uL (4.0-10.0)
[2021-05-27 07:27] LABS: ALBUMIN 2.7 GM/DL (3.2-5.2); ALT/SGPT 12 U/L (12-78); BILIRUBIN,TOTAL 0.2 MG/DL (0.2-1.0); BLOOD UREA NITROGEN 19 MG/DL (7-18); CALCIUM LEVEL 8.5 MG/DL (8.8-10.2); CARBON DIOXIDE LEVEL 30 MEQ/L (21-32); CHLORIDE LEVEL 105 MEQ/L (98-107); CREATININE FOR GFR 0.65 MG/DL (0.70-1.30); GLOMERULAR FILTRATION RATE > 60.0 (>35); GLUCOSE, FASTING 158 MG/DL (70-100); MAGNESIUM LEVEL 2.1 MG/DL (1.8-2.4); SODIUM LEVEL 140 MEQ/L (136-145); TOTAL PROTEIN 6.1 GM/DL (6.4-8.2)
[2021-05-27] MEDS: ENOXAPARIN 80MG/0.8ML SYRINGE (J1650 PER 10MG) SC SCH (10:16)
[2021-05-27] MEDS: ASPIRIN 300 MG SUPP PR SCH (10:17)
[2021-05-27] MEDS ORDERED: VARIBAR NECTAR 40% w/v 240ML SUSP BTL As Ordered ONE (14:51)
[2021-05-27] MEDS ORDERED: VARIBAR PUDDING 40% w/v 230ML TUBE As Ordered ONE (14:51)
[2021-05-27] MEDS ORDERED: E-Z-PAQUE 96% w/w SUSP 176GM BTL As Ordered ONE (14:51)
[2021-05-27] MEDS ORDERED: BARIUM SULFATE 700 MG TABLET (E-Z-DISK) As Ordered ONE (14:52)
--- NOTE | 2021-05-27 16:53 | REP ---
INDICATION: REEVAL SWALLOW ?PEG TUBE. COMPARISON: None. TECHNIQUE: The procedure was performed by Kaylee Restrepo [facility], under the direct supervision of Dr. Lara. The procedure was performed with Kayley Garibay and Samanta Cheatham from speech pathology present. 5 ml aliquots of honey and nectar thick consistency barium was administered. FINDINGS: Both aspiration and penetration were visualized during the exam. The detailed report of this examination will be provided by speech pathology. IMPRESSION: Aspiration was visualized, a detailed report will be provided by speech pathology. 0.9 minutes of fluoroscopy time was utilized for this procedure. Some fluoroscopic images are performed with last image hold technology. These images require no additional radiation <Electronically signed by Kaylee Restrepo > 05/27/21 1641 <Electronically signed by Iraj Lara > 05/27/21 1655
[2021-05-27] MEDS ORDERED: FAT EMULSION IV 20% 500 ML IV SCH (18:00)
[2021-05-27] MEDS ORDERED: HumaLOG INSULIN (NovoLOG) PER UNIT SC SCH (18:00)
[2021-05-27] MEDS ORDERED: AMINO AC/ELECTROLYTE/DEX/CALC 2,000 ML IV SCH (18:00)
[2021-05-28] MEDS: HumaLOG INSULIN (NovoLOG) PER UNIT SC SCH ×4 (00:32→18:00)
[2021-05-28 06:00] VITALS: BP 166/89
[2021-05-28 06:36] LABS: BASO # 0.1 10^3/uL (0.0-0.2); BASO % 1.2 % (0.0-1.0); EOS # 0.3 10^3/uL (0.0-0.5); EOS % 5.6 % (0.0-3.0); HEMATOCRIT 39.8 % (42.0-52.0); HEMOGLOBIN 12.7 g/dl (13.5-17.5); LYMPH # 1.2 10^3/uL (1.5-5.0); LYMPH % 24.1 % (24.0-44.0); MEAN CORPUSCULAR HEMOGLOBIN 29.7 pg (27.0-33.0); MEAN CORPUSCULAR HGB CONC 31.9 g/dl (32.0-36.5); MEAN CORPUSCULAR VOLUME 93.2 fl (80.0-96.0); MONO # 0.5 10^3/uL (0.0-0.8); MONO % 9.3 % (2.0-8.0); NEUTROPHILS % 59.4 % (36.0-66.0); PLATELET COUNT, AUTOMATED 256 10^3/uL (150-450); RED BLOOD COUNT 4.27 10^6/uL (4.30-6.10)
[2021-05-28] MEDS: SODIUM CHLORIDE 0.9% INJ 10 ML SYR IV SCH ×2 (06:38→18:49)
[2021-05-28 07:02] LABS: ALBUMIN 2.6 GM/DL (3.2-5.2); ALT/SGPT 18 U/L (12-78); BILIRUBIN,TOTAL 0.2 MG/DL (0.2-1.0); BLOOD UREA NITROGEN 20 MG/DL (7-18); CALCIUM LEVEL 8.3 MG/DL (8.8-10.2); CARBON DIOXIDE LEVEL 30 MEQ/L (21-32); CHLORIDE LEVEL 104 MEQ/L (98-107); CREATININE FOR GFR 0.64 MG/DL (0.70-1.30); GLOMERULAR FILTRATION RATE > 60.0 (>35); GLUCOSE, FASTING 160 MG/DL (70-100); MAGNESIUM LEVEL 2.1 MG/DL (1.8-2.4); SODIUM LEVEL 138 MEQ/L (136-145); TOTAL PROTEIN 6.1 GM/DL (6.4-8.2)
[2021-05-28] MEDS: DOCUSATE SODIUM 100MG CAPSULE PO SCH ×3 (09:00→21:41)
[2021-05-28] MEDS: FOLIC ACID 1 MG TAB PO SCH (09:00)
[2021-05-28] MEDS: FINASTERIDE 5 MG TAB PO SCH (09:00)
[2021-05-28] MEDS: amLODIPine 5 MG TAB PO SCH (09:00)
[2021-05-28] MEDS: ATORVASTATIN 20 MG TAB PO SCH (09:00)
[2021-05-28] MEDS: CLOPIDOGREL 75 MG TAB PO SCH (09:00)
[2021-05-28] MEDS ORDERED: BISACODYL 10 MG SUPP PR ONE (14:20)
--- NOTE | 2021-05-28 14:35 | IRMSE ---
[facility] IR Moderate Sedation Eval. Date and Time Date: May 28, 2021 Time: 14:35 ASA Classification ASA Classification: III-Severe systemic dis. Mallampati Score: II NPO: Yes Obstructive Sleep Apnea: No Interval Plan: moderate sedation MELANI PEREZ MD May 28, 2021 14:35
[2021-05-28] MEDS ORDERED: ceFAZolin 2 GM/D5W 50 ML IV BAG (J0690 PER 500MG) As Ordered ONE (14:40)
[2021-05-28] MEDS ORDERED: diphenhydrAMINE 50MG/ML VIAL (J1200) As Ordered ONE (14:42)
[2021-05-28] MEDS ORDERED: fentaNYL 100 MCG/2 ML INJECTION (J3010) As Ordered ONE (14:42)
[2021-05-28] MEDS ORDERED: LIDOCAINE 2% JELLY 5ML TUBE As Ordered ONE (14:42)
[2021-05-28] MEDS ORDERED: GLUCAGON INJ 1MG VIAL As Ordered ONE (14:42)
[2021-05-28] MEDS ORDERED: MIDAZOLAM INJ 2MG/2ML VIAL (J2250 PER 1MG) As Ordered ONE (14:43)
[2021-05-28] MEDS ORDERED: ISOVUE-300 61% 50ML VIAL As Ordered ONE (14:43)
[2021-05-28] MEDS ORDERED: LIDOCAINE 1% MDV 20ML VIAL As Ordered ONE (14:43)
[2021-05-28 17:15] VITALS: BP 168/103
[2021-05-28] MEDS ORDERED: FAT EMULSION IV 20% 500 ML IV SCH (18:00)
[2021-05-28] MEDS ORDERED: MULTIVITAMIN -ADULT INJECTION 10 ML, CR/CU/SE/MN/ZN INJ 1 ML in AMINO AC/ELECTROLYTE/DE... IV SCH (18:00)
[2021-05-28 18:16] VITALS: BP 130/81
[2021-05-28] MEDS: ASPIRIN 300 MG SUPP PR SCH (18:49)
[2021-05-28 19:15] VITALS: BP 137/96
[2021-05-28 20:15] VITALS: BP 144/96
[2021-05-28 22:00] VITALS: BP 142/97
[2021-05-29] MEDS: HumaLOG INSULIN (NovoLOG) PER UNIT SC SCH ×4 (00:11→17:36)
[2021-05-29] MEDS ORDERED: ACETAMINOPHEN 325 MG/10.15 ML UDC PO PRN (01:00)
[2021-05-29 02:00] VITALS: BP 142/95
[2021-05-29] MEDS: SODIUM CHLORIDE 0.9% INJ 10 ML SYR IV SCH ×2 (05:20→18:19)
[2021-05-29 06:00] VITALS: BP 142/95
[2021-05-29 06:07] LABS: BASO # 0.1 10^3/uL (0.0-0.2); BASO % 0.9 % (0.0-1.0); EOS # 0.3 10^3/uL (0.0-0.5); HEMATOCRIT 39.8 % (42.0-52.0); HEMOGLOBIN 12.9 g/dl (13.5-17.5); LYMPH # 1.3 10^3/uL (1.5-5.0); LYMPH % 19.1 % (24.0-44.0); MEAN CORPUSCULAR HEMOGLOBIN 30.4 pg (27.0-33.0); MEAN CORPUSCULAR HGB CONC 32.4 g/dl (32.0-36.5); MEAN CORPUSCULAR VOLUME 93.6 fl (80.0-96.0); MONO # 0.4 10^3/uL (0.0-0.8); MONO % 6.3 % (2.0-8.0); NEUTROPHILS # 4.7 10^3/uL (1.5-8.5); NEUTROPHILS % 69.3 % (36.0-66.0); PLATELET COUNT, AUTOMATED 256 10^3/uL (150-450); RED BLOOD COUNT 4.25 10^6/uL (4.30-6.10); WHITE BLOOD COUNT 6.8 10^3/uL (4.0-10.0)
[2021-05-29 06:33] LABS: ALBUMIN 2.7 GM/DL (3.2-5.2); ALT/SGPT 23 U/L (12-78); BILIRUBIN,TOTAL 0.2 MG/DL (0.2-1.0); BLOOD UREA NITROGEN 23 MG/DL (7-18); CALCIUM LEVEL 8.8 MG/DL (8.8-10.2); CARBON DIOXIDE LEVEL 32 MEQ/L (21-32); CHLORIDE LEVEL 102 MEQ/L (98-107); CREATININE FOR GFR 0.74 MG/DL (0.70-1.30); GLOMERULAR FILTRATION RATE > 60.0 (>35); GLUCOSE, FASTING 156 MG/DL (70-100); MAGNESIUM LEVEL 2.1 MG/DL (1.8-2.4); SODIUM LEVEL 138 MEQ/L (136-145); TOTAL PROTEIN 6.8 GM/DL (6.4-8.2)
[2021-05-29] MEDS: DOCUSATE SODIUM 100MG CAPSULE PO SCH ×2 (07:59→22:37)
[2021-05-29] MEDS: FOLIC ACID 1 MG TAB PO SCH (07:59)
[2021-05-29] MEDS: amLODIPine 5 MG TAB PO SCH (08:00)
[2021-05-29] MEDS: CLOPIDOGREL 75 MG TAB PO SCH (08:00)
[2021-05-29] MEDS: ATORVASTATIN 20 MG TAB PO SCH (08:00)
[2021-05-29] MEDS: FINASTERIDE 5 MG TAB PO SCH (08:01)
[2021-05-29] MEDS: ASPIRIN 300 MG SUPP PR SCH (11:32)
[2021-05-29 15:00] VITALS: BP 120/80
[2021-05-30] MEDS: HumaLOG INSULIN (NovoLOG) PER UNIT SC SCH ×4 (00:29→18:59)
[2021-05-30] MEDS: ENOXAPARIN 80MG/0.8ML SYRINGE (J1650 PER 10MG) SC SCH ×3 (00:30→22:26)
[2021-05-30 06:00] VITALS: BP 131/84
[2021-05-30] MEDS: SODIUM CHLORIDE 0.9% INJ 10 ML SYR IV SCH ×2 (06:36→19:00)
[2021-05-30 06:54] LABS: BASO # 0.1 10^3/uL (0.0-0.2); BASO % 0.7 % (0.0-1.0); EOS # 0.1 10^3/uL (0.0-0.5); EOS % 0.9 % (0.0-3.0); HEMATOCRIT 42.8 % (42.0-52.0); LYMPH % 10.3 % (24.0-44.0); MEAN CORPUSCULAR HEMOGLOBIN 30.8 pg (27.0-33.0); MEAN CORPUSCULAR HGB CONC 32.7 g/dl (32.0-36.5); MEAN CORPUSCULAR VOLUME 94.1 fl (80.0-96.0); MONO # 0.6 10^3/uL (0.0-0.8); MONO % 6.5 % (2.0-8.0); NEUTROPHILS # 7.9 10^3/uL (1.5-8.5); PLATELET COUNT, AUTOMATED 259 10^3/uL (150-450); RED BLOOD COUNT 4.55 10^6/uL (4.30-6.10); WHITE BLOOD COUNT 9.7 10^3/uL (4.0-10.0)
[2021-05-30 07:21] LABS: ALT/SGPT 24 U/L (12-78); BILIRUBIN,TOTAL 0.3 MG/DL (0.2-1.0); BLOOD UREA NITROGEN 24 MG/DL (7-18); CALCIUM LEVEL 8.8 MG/DL (8.8-10.2); CARBON DIOXIDE LEVEL 33 MEQ/L (21-32); CHLORIDE LEVEL 101 MEQ/L (98-107); GLOMERULAR FILTRATION RATE > 60.0 (>35); GLUCOSE, FASTING 132 MG/DL (70-100); MAGNESIUM LEVEL 2.1 MG/DL (1.8-2.4); POTASSIUM SERUM 4.3 MEQ/L (3.5-5.1); SODIUM LEVEL 139 MEQ/L (136-145); TOTAL PROTEIN 6.6 GM/DL (6.4-8.2)
[2021-05-30] MEDS: amLODIPine 5 MG TAB GT SCH (09:00)
[2021-05-30] MEDS: ATORVASTATIN 20 MG TAB GT SCH (10:51)
[2021-05-30] MEDS: CLOPIDOGREL 75 MG TAB GT SCH (10:52)
[2021-05-30] MEDS: FOLIC ACID 1 MG TAB GT SCH (10:52)
[2021-05-30] MEDS ORDERED: NS 1,000 ML IV SCH (14:00)
[2021-05-31] MEDS: HumaLOG INSULIN (NovoLOG) PER UNIT SC SCH ×5 (00:20→23:42)
[2021-05-31 05:46] VITALS: BP 113/69
[2021-05-31] MEDS: SODIUM CHLORIDE 0.9% INJ 10 ML SYR IV SCH ×2 (06:05→18:08)
[2021-05-31 06:22] LABS: BASO # 0.1 10^3/uL (0.0-0.2); BASO % 0.9 % (0.0-1.0); EOS # 0.2 10^3/uL (0.0-0.5); EOS % 3.4 % (0.0-3.0); HEMATOCRIT 39.3 % (42.0-52.0); HEMOGLOBIN 12.7 g/dl (13.5-17.5); LYMPH # 1.4 10^3/uL (1.5-5.0); LYMPH % 22.1 % (24.0-44.0); MEAN CORPUSCULAR HEMOGLOBIN 30.4 pg (27.0-33.0); MEAN CORPUSCULAR HGB CONC 32.3 g/dl (32.0-36.5); MONO # 0.5 10^3/uL (0.0-0.8); NEUTROPHILS # 4.2 10^3/uL (1.5-8.5); NEUTROPHILS % 65.1 % (36.0-66.0); PLATELET COUNT, AUTOMATED 236 10^3/uL (150-450); RED BLOOD COUNT 4.18 10^6/uL (4.30-6.10); WHITE BLOOD COUNT 6.4 10^3/uL (4.0-10.0)
[2021-05-31 06:46] LABS: ALBUMIN 2.7 GM/DL (3.2-5.2); ALT/SGPT 15 U/L (12-78); BILIRUBIN,TOTAL 0.5 MG/DL (0.2-1.0); BLOOD UREA NITROGEN 22 MG/DL (7-18); CALCIUM LEVEL 7.9 MG/DL (8.8-10.2); CARBON DIOXIDE LEVEL 32 MEQ/L (21-32); CHLORIDE LEVEL 102 MEQ/L (98-107); CREATININE FOR GFR 0.65 MG/DL (0.70-1.30); GLOMERULAR FILTRATION RATE > 60.0 (>35); GLUCOSE, FASTING 125 MG/DL (70-100); MAGNESIUM LEVEL 2.2 MG/DL (1.8-2.4); POTASSIUM SERUM 4.1 MEQ/L (3.5-5.1); SODIUM LEVEL 136 MEQ/L (136-145); TOTAL PROTEIN 5.9 GM/DL (6.4-8.2)
[2021-05-31 08:21] VITALS: BP 111/85
[2021-05-31] MEDS: amLODIPine 5 MG TAB GT SCH (09:00)
[2021-05-31] MEDS: ATORVASTATIN 20 MG TAB GT SCH (11:07)
[2021-05-31] MEDS: CLOPIDOGREL 75 MG TAB GT SCH (11:09)
[2021-05-31] MEDS: ENOXAPARIN 80MG/0.8ML SYRINGE (J1650 PER 10MG) SC SCH ×2 (11:10→20:09)
[2021-05-31] MEDS: FOLIC ACID 1 MG TAB GT SCH (11:10)
--- NOTE | 2021-05-31 18:15 | IPNPDOC ---
Text Note Date of Service The patient was seen on 05/31/21. NOTE Subjective: Patient is an 86-year-old male with a PMHx of NIDDM2, HTN, Prostate CA, Acoustic neuroma s/p gamma knife procedure, who presented to the emergency room with his son reports that patient has not left his better 07/18 much in the last 1 week. Patient was pleasantly confused, oriented to person. Patient was admitted to hospital service for further evaluation and treatment. Patient was ultimately found to have an acute and subacute infarcts in multiple areas of his brain. She was suspecting of having cardioembolic phenomenon and was started on full into regulation with Lovenox. Patient was seen and examined at the bedside. Patient was drowsy this morning. Was unable to answer very many questions. Objective: Vitals (See below) General: Lying in bed, appears comfortable, drowsy, but awakes, oriented to pers on HEENT: NC, AT CVS: +S1S2 Lungs: Fair air entry b/l, dizziness, rhonchi Abdomen: Soft, ND, NT, + PEG tube Extremities: - Edema, - Calf tenderness Imaging: CXR 05/09: No acute findings. Head CT 05/09: 1. There is moderate age related parenchymal volume loss. White matter changes are demonstrated in the subcortical, centrum semiovale and periventricular white matter consistent with chronic age related small vessel ischemic changes. 2. The degree of ventricular dilatation is normal for age and/or degree of atrophy present. 3. No acute intracranial findings. Head CT 05/13: 1. No acute intracranial abnormality. 2. Atrophy and chronic deep white matter ischemic changes. 3. [place] Stroke Program Early CT Score (ASPECTS) = 10 Brain MRI 05/13: 1. 11 mm acute infarct in the anteromedial left thalamus. 0.8 cm acute right precentral gyrus subcortical and deep white matter lacunar infarct. Small subacute left putaminal/skelton radiata lacunar infarct. 2. Ventricles are mildly enlarged diffusely, likely from central volume loss, communicating hydrocephalus not excluded. Vascular US 05/14: 1. No hemodynamically significant stenosis in the right or left ICAs. 2. Small scattered calcified plaques most pronounced in the right carotid bulb extending to the proximal right ECA and in the proximal left ECA resulting in less than 50% stenosis. 3. Increased velocities in the left CCA as compared to the right particularly at the origin could be secondary to stenosis at the origin/ostium of the left CCA. If clinically warranted, CT angiogram or MR angiogram may be considered. Head CT 05/14: No acute intracranial hemorrhage or edema. Brain MRI 05/14: 1. Limited exam due to motion artifact 2. 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 Carotid artery MRI 05/14: No stenosis or occlusion. CT Head 05/14: No acute intracranial pathology. Chronic atrophic and microischemic changes. The brain had a similar appearance [address] head 05/16: 1. Moderate volume loss and small vessel ischemic changes.Old lacunar infarcts in bilateral basal ganglia, and left thalamus. 2. No acute intracranial abnormality. CXR 05/22: The lungs are unchanged in appearance. CT Head 05/22: Vascular calcification, generalized volume loss, small vessel atherosclerotic changes, and old bilateral basal ganglia infarcts. The recent basal ganglia infarct on the left is less conspicuous today but no chucho hemorrhage is seen. No new infarct is appreciated.. CT Head 05/26: Atrophy and microvascular ischemic changes. No acute intracranial hemorrhage, infarction, or mass/mass effect. 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 Mary Murphyonditioning - c/w PT and OT - Recommend rehabilitation Chronic urinary retention 2/2 BPH - c/w Covarrubias Catheter - Will need outpatient follow-up with urology UTI - s/p Treatment with antibiotics History of acoustic neuroma - s/p gamma knife procedure - Patient has difficulty hearing NIDDM23 - c/w ISS Hypertension - c/w Amlodipine with hold parameters DVT prophylaxis - c/w full anticoagulation with Lovenox Disposition: - c/w ALC status - Looking into long-term placement VS,Fishbone, I+O VS, Fishbone, I+O Laboratory Tests 05/31/21 06:01 Vital Signs Date Time Temp Pulse Resp B/P (MAP) Pulse Ox O2 Delivery O2 Flow Rate FiO2 05/31/21 09:00 68 111/85 05/31/21 08:21 97.9 18 94 Room Air 05/28/21 16:03 2.0 I&O- Last 24 Hours up to 6 AM 05/31/21 06:00 Intake Total 1140 ml Output Total 1300 ml Balance -160 ml ALVAREZ HERRERA MD May 31, 2021 18:15
[2021-06-01] MEDS: HumaLOG INSULIN (NovoLOG) PER UNIT SC SCH ×3 (05:49→18:10)
[2021-06-01] MEDS: SODIUM CHLORIDE 0.9% INJ 10 ML SYR IV SCH ×2 (05:50→18:11)
[2021-06-01 06:00] VITALS: BP 137/76
[2021-06-01 07:47] LABS: BASO # 0.1 10^3/uL (0.0-0.2); BASO % 1.2 % (0.0-1.0); EOS # 0.2 10^3/uL (0.0-0.5); EOS % 3.9 % (0.0-3.0); HEMATOCRIT 37.9 % (42.0-52.0); HEMOGLOBIN 11.9 g/dl (13.5-17.5); LYMPH # 1.2 10^3/uL (1.5-5.0); LYMPH % 20.8 % (24.0-44.0); MEAN CORPUSCULAR HEMOGLOBIN 29.6 pg (27.0-33.0); MEAN CORPUSCULAR HGB CONC 31.4 g/dl (32.0-36.5); MEAN CORPUSCULAR VOLUME 94.3 fl (80.0-96.0); MONO # 0.5 10^3/uL (0.0-0.8); MONO % 8.3 % (2.0-8.0); NEUTROPHILS # 3.9 10^3/uL (1.5-8.5); NEUTROPHILS % 65.1 % (36.0-66.0); PLATELET COUNT, AUTOMATED 219 10^3/uL (150-450); RED BLOOD COUNT 4.02 10^6/uL (4.30-6.10); WHITE BLOOD COUNT 5.9 10^3/uL (4.0-10.0)
[2021-06-01 08:01] LABS: BLOOD UREA NITROGEN 21 MG/DL (7-18); CARBON DIOXIDE LEVEL 31 MEQ/L (21-32); CHLORIDE LEVEL 102 MEQ/L (98-107); GLOMERULAR FILTRATION RATE > 60.0 (>35); GLUCOSE, FASTING 165 MG/DL (70-100); POTASSIUM SERUM 3.9 MEQ/L (3.5-5.1); SODIUM LEVEL 138 MEQ/L (136-145)
[2021-06-01] MEDS: CLOPIDOGREL 75 MG TAB GT SCH (10:09)
[2021-06-01] MEDS: ENOXAPARIN 80MG/0.8ML SYRINGE (J1650 PER 10MG) SC SCH ×2 (10:09→20:24)
[2021-06-01] MEDS: ATORVASTATIN 20 MG TAB GT SCH (10:09)
[2021-06-01] MEDS: FOLIC ACID 1 MG TAB GT SCH (10:09)
[2021-06-01] MEDS: amLODIPine 5 MG TAB GT SCH (10:10)
[2021-06-01] MEDS: PERCOCET 5MG/325MG TAB PO PRN (18:09)
[2021-06-01 20:49] VITALS: BP 142/80
[2021-06-02] MEDS: HumaLOG INSULIN (NovoLOG) PER UNIT SC SCH ×4 (00:11→17:02)
[2021-06-02 05:25] VITALS: BP 133/85
[2021-06-02] MEDS: SODIUM CHLORIDE 0.9% INJ 10 ML SYR IV SCH ×2 (05:33→17:03)
[2021-06-02 06:29] LABS: BASO % 0.2 % (0.0-1.0); EOS % 0.2 % (0.0-3.0); HEMATOCRIT 40.3 % (42.0-52.0); HEMOGLOBIN 13.2 g/dl (13.5-17.5); LYMPH # 0.7 10^3/uL (1.5-5.0); LYMPH % 6.1 % (24.0-44.0); MEAN CORPUSCULAR HEMOGLOBIN 30.6 pg (27.0-33.0); MEAN CORPUSCULAR HGB CONC 32.8 g/dl (32.0-36.5); MEAN CORPUSCULAR VOLUME 93.3 fl (80.0-96.0); MONO # 0.8 10^3/uL (0.0-0.8); MONO % 6.5 % (2.0-8.0); NEUTROPHILS # 10.4 10^3/uL (1.5-8.5); NEUTROPHILS % 86.3 % (36.0-66.0); PLATELET COUNT, AUTOMATED 212 10^3/uL (150-450); RED BLOOD COUNT 4.32 10^6/uL (4.30-6.10)
[2021-06-02 06:49] LABS: BLOOD UREA NITROGEN 17 MG/DL (7-18); CALCIUM LEVEL 7.9 MG/DL (8.8-10.2); CARBON DIOXIDE LEVEL 31 MEQ/L (21-32); CHLORIDE LEVEL 99 MEQ/L (98-107); GLOMERULAR FILTRATION RATE > 60.0 (>35); GLUCOSE, FASTING 250 MG/DL (70-100); MAGNESIUM LEVEL 1.9 MG/DL (1.8-2.4); POTASSIUM SERUM 4.6 MEQ/L (3.5-5.1); SODIUM LEVEL 132 MEQ/L (136-145)
--- NOTE | 2021-06-02 08:34 | REP ---
INDICATION: Leukocytosis COMPARISON: 05/22/2021 TECHNIQUE: Portable AP view of the chest FINDINGS: Right PICC line with tip in the SVC unchanged. Chronic elevation to the left hemidiaphragm unchanged. Visualized portions of the mediastinum and cardiac silhouette are stable and within normal limits. Chronic bibasilar changes are suggested. No acute focal consolidation, obvious effusion, or pneumothorax. Skeletal structures stable. IMPRESSION: Stable chronic appearing changes. No acute consolidation or effusion. <Electronically signed by Alan Lee > 06/02/21 [id number]
[2021-06-02] MEDS: PERCOCET 5MG/325MG TAB PO PRN (09:44)
[2021-06-02] MEDS: ATORVASTATIN 20 MG TAB GT SCH (09:45)
[2021-06-02] MEDS: CLOPIDOGREL 75 MG TAB GT SCH (09:45)
[2021-06-02] MEDS: FOLIC ACID 1 MG TAB GT SCH (09:45)
[2021-06-02] MEDS: amLODIPine 5 MG TAB GT SCH (09:45)
[2021-06-02] MEDS: ENOXAPARIN 80MG/0.8ML SYRINGE (J1650 PER 10MG) SC SCH ×2 (09:46→22:58)
[2021-06-02 14:00] VITALS: BP 136/80
[2021-06-02 22:00] VITALS: BP 138/80
[2021-06-03] MEDS: HumaLOG INSULIN (NovoLOG) PER UNIT SC SCH ×4 (00:01→18:03)
[2021-06-03 06:00] VITALS: BP 138/77
[2021-06-03 06:36] LABS: BASO # 0.1 10^3/uL (0.0-0.2); BASO % 0.4 % (0.0-1.0); EOS # 0.1 10^3/uL (0.0-0.5); EOS % 0.4 % (0.0-3.0); HEMATOCRIT 39.5 % (42.0-52.0); HEMOGLOBIN 12.6 g/dl (13.5-17.5); LYMPH # 1.3 10^3/uL (1.5-5.0); LYMPH % 10.7 % (24.0-44.0); MEAN CORPUSCULAR HEMOGLOBIN 29.6 pg (27.0-33.0); MEAN CORPUSCULAR HGB CONC 31.9 g/dl (32.0-36.5); MEAN CORPUSCULAR VOLUME 92.9 fl (80.0-96.0); MONO # 1.1 10^3/uL (0.0-0.8); MONO % 9.4 % (2.0-8.0); NEUTROPHILS # 9.4 10^3/uL (1.5-8.5); NEUTROPHILS % 78.6 % (36.0-66.0); PLATELET COUNT, AUTOMATED 221 10^3/uL (150-450); RED BLOOD COUNT 4.25 10^6/uL (4.30-6.10)
[2021-06-03 06:44] LABS: BLOOD UREA NITROGEN 21 MG/DL (7-18); CALCIUM LEVEL 8.5 MG/DL (8.8-10.2); CARBON DIOXIDE LEVEL 31 MEQ/L (21-32); CHLORIDE LEVEL 98 MEQ/L (98-107); CREATININE FOR GFR 0.85 MG/DL (0.70-1.30); GLOMERULAR FILTRATION RATE > 60.0 (>35); GLUCOSE, FASTING 173 MG/DL (70-100); POTASSIUM SERUM 4.3 MEQ/L (3.5-5.1); SODIUM LEVEL 134 MEQ/L (136-145)
[2021-06-03] MEDS: SODIUM CHLORIDE 0.9% INJ 10 ML SYR IV SCH ×2 (07:05→18:04)
--- NOTE | 2021-06-03 08:54 | IRPON ---
IR Postoperative Note Date Of Procedure: May 28, 2021 Time Of Procedure: 16:00 IR Postoperative Note IR Gastrostomy catheter placement with fluoroscopic guidance. IR Moderate sedation. Clinical Information:Stroke. Failed swallow test. Needs long-term feeding tube for nutrition. Physician: Dr. Hernandez. Procedure: The patient and his family were advised of the benefits, risks, and alternatives of the procedure and informed consent was obtained. A time out was performed with verification of the patient's name, MRN, site of procedure, and type of procedure to be performed. The patient was positioned in the supine position on the angiographic table. The site was prepped and draped in the usual sterile fashion. Moderate sedation was performed by the physician including the presence of an independent trained RN, who assisted in monitoring the patient's level of consciousness and physiological status. Following the administration of fentanyl and Versed the physician spent 45 minutes of continuous [id number] time with the patient. A headhunter radiograph reveals elevation of the left hemidiaphragm. A 5 Bulgarian glide cath in conjunction with a Glidewire, was inserted through the nostril, under fluoroscopy guidance, down the esophagus into the stomach. The wire was removed. One mg of glucagon was administered intravenously. The stomach was insufflated and distended with air through the nasogastric tube. The soft tissues overlying the anticipated puncture sites were anesthetized with lidocaine. A gastropexy needle was advanced into the stomach and positioning was confirmed with contrast injection. The gastropexy suture was deployed and secured in the usual fa shion. A total of 3 gastropexy sutures were deployed. An 18 gauge needle was advanced into the body of the stomach. Contrast was injected documenting intra- gastric position. An Amplatz wire was advanced into the stomach. After serial dilation, a peel-away sheath was advanced over the wire, under fluoroscopy guidance, into the stomach. An 18 F ZOYA Gastrostomy catheter was the n advanced over the wire, through the peel-away sheath into the stomach and the peel-away sheath was removed. The balloon was insufflated and the catheter retracted back to the the anterior stomach wall. The bumper on the catheter was positioned and secured to sandwich the anterior stomach wall. Contrast was injected to confirm catheter position. The catheter was then placed to gravity drainage. The NG tube was removed The patient tolerated the procedure well and was returned to the PRU in stable condition. EBL:Less than 5 mL. Complications:None. Conclusion: 1. Successful placement of an 18 Bulgarian ZOYA gastrostomy catheter. 2. The catheter should remain to gravity drainage for 24 hours after which feedings may begin and advanced as tolerated. The gastropexy sutures should dissolve within 6 weeks and the buttons will fall off. Thank you for this referral MELANI HERNANDEZ MD Jun 03, 2021 08:54
[2021-06-03] MEDS: FOLIC ACID 1 MG TAB GT SCH (10:56)
[2021-06-03] MEDS: amLODIPine 5 MG TAB GT SCH (10:56)
[2021-06-03] MEDS: ATORVASTATIN 20 MG TAB GT SCH (10:57)
[2021-06-03] MEDS: CLOPIDOGREL 75 MG TAB GT SCH (10:57)
[2021-06-03] MEDS: ENOXAPARIN 80MG/0.8ML SYRINGE (J1650 PER 10MG) SC SCH ×2 (10:58→22:19)
[2021-06-03 13:49] LABS: ABG BASE EXCESS 5.1 (-2.0-2.0); ABG HCO3 28.8 MEQ/L (22.0-26.0); ABG O2 SATURATION 92.6 % (95.0-99.0); ABG PARTIAL PRESSURE O2 59.2 mmHg (75.0-100.0); ABG pH (ARTERIAL) 7.486 UNITS (7.350-7.450)
--- NOTE | 2021-06-03 13:59 | REP ---
INDICATION: dyspnea. COMPARISON: 06/02/2021 as well as other prior exams. TECHNIQUE: Single portable AP view of the chest was performed. FINDINGS: There is stable elevation of the left hemidiaphragm. Bibasilar fibro atelectatic changes appear stable. Heart and mediastinum are unchanged. Right arm PICC line is unchanged in position. IMPRESSION: Stable chronic findings. No new infiltrate identified. <Electronically signed by Eric Quinones > 06/03/21 [id number]
[2021-06-03 14:00] VITALS: BP 123/82
[2021-06-03 14:20] LABS: BASO # 0.1 10^3/uL (0.0-0.2); BASO % 0.5 % (0.0-1.0); EOS % 0.3 % (0.0-3.0); HEMATOCRIT 39.1 % (42.0-52.0); HEMOGLOBIN 12.8 g/dl (13.5-17.5); LYMPH # 1.4 10^3/uL (1.5-5.0); LYMPH % 11.1 % (24.0-44.0); MEAN CORPUSCULAR HEMOGLOBIN 30.3 pg (27.0-33.0); MEAN CORPUSCULAR HGB CONC 32.7 g/dl (32.0-36.5); MEAN CORPUSCULAR VOLUME 92.4 fl (80.0-96.0); MONO % 8.2 % (2.0-8.0); NEUTROPHILS % 79.3 % (36.0-66.0); PLATELET COUNT, AUTOMATED 226 10^3/uL (150-450); RED BLOOD COUNT 4.23 10^6/uL (4.30-6.10); WHITE BLOOD COUNT 12.6 10^3/uL (4.0-10.0)
[2021-06-03 14:53] LABS: ALBUMIN 2.6 GM/DL (3.2-5.2); ALT/SGPT 13 U/L (12-78); BILIRUBIN,TOTAL 0.6 MG/DL (0.2-1.0); BLOOD UREA NITROGEN 24 MG/DL (7-18); CALCIUM LEVEL 8.1 MG/DL (8.8-10.2); CARBON DIOXIDE LEVEL 30 MEQ/L (21-32); CHLORIDE LEVEL 97 MEQ/L (98-107); CK-MB VALUE MASS < 1.0 NG/ML (<3.6); CPK CREATINE PHOSPHOKINASE 37 U/L (39-308); CREATININE FOR GFR 0.78 MG/DL (0.70-1.30); GLOMERULAR FILTRATION RATE > 60.0 (>35); GLUCOSE, FASTING 188 MG/DL (70-100); POTASSIUM SERUM 4.4 MEQ/L (3.5-5.1); SODIUM LEVEL 131 MEQ/L (136-145); TOTAL PROTEIN 6.2 GM/DL (6.4-8.2); TROPONIN I < 0.02 NG/ML (< 0.10)
[2021-06-03 16:59] LABS: OSMOLALITY SERUM 284 MOSM/KG (280-301)
[2021-06-03 20:08] VITALS: BP 120/80
[2021-06-04] MEDS: HumaLOG INSULIN (NovoLOG) PER UNIT SC SCH ×4 (00:50→18:10)
[2021-06-04 05:14] VITALS: BP 120/79
[2021-06-04] MEDS: SODIUM CHLORIDE 0.9% INJ 10 ML SYR IV SCH ×2 (06:03→18:10)
[2021-06-04 06:23] LABS: BASO % 0.4 % (0.0-1.0); EOS # 0.1 10^3/uL (0.0-0.5); EOS % 1.4 % (0.0-3.0); HEMATOCRIT 36.5 % (42.0-52.0); HEMOGLOBIN 11.5 g/dl (13.5-17.5); LYMPH # 1.2 10^3/uL (1.5-5.0); LYMPH % 11.9 % (24.0-44.0); MEAN CORPUSCULAR HEMOGLOBIN 29.6 pg (27.0-33.0); MEAN CORPUSCULAR HGB CONC 31.5 g/dl (32.0-36.5); MEAN CORPUSCULAR VOLUME 94.1 fl (80.0-96.0); MONO # 1.1 10^3/uL (0.0-0.8); MONO % 10.6 % (2.0-8.0); NEUTROPHILS # 7.8 10^3/uL (1.5-8.5); NEUTROPHILS % 75.1 % (36.0-66.0); PLATELET COUNT, AUTOMATED 207 10^3/uL (150-450); RED BLOOD COUNT 3.88 10^6/uL (4.30-6.10); WHITE BLOOD COUNT 10.3 10^3/uL (4.0-10.0)
[2021-06-04 06:50] LABS: BLOOD UREA NITROGEN 24 MG/DL (7-18); CALCIUM LEVEL 8.2 MG/DL (8.8-10.2); CARBON DIOXIDE LEVEL 32 MEQ/L (21-32); CHLORIDE LEVEL 97 MEQ/L (98-107); CREATININE FOR GFR 0.76 MG/DL (0.70-1.30); GLOMERULAR FILTRATION RATE > 60.0 (>35); GLUCOSE, FASTING 152 MG/DL (70-100); MAGNESIUM LEVEL 2.1 MG/DL (1.8-2.4); POTASSIUM SERUM 4.4 MEQ/L (3.5-5.1); SODIUM LEVEL 132 MEQ/L (136-145)
--- NOTE | 2021-06-04 08:22 | ECGEPIP ---
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
[2021-06-04] MEDS: ENOXAPARIN 80MG/0.8ML SYRINGE (J1650 PER 10MG) SC SCH ×2 (09:00→20:37)
[2021-06-04] MEDS: FOLIC ACID 1 MG TAB GT SCH (09:52)
[2021-06-04] MEDS: ATORVASTATIN 20 MG TAB GT SCH (09:52)
[2021-06-04] MEDS: amLODIPine 5 MG TAB GT SCH (09:53)
[2021-06-04] MEDS: CLOPIDOGREL 75 MG TAB GT SCH (09:53)
[2021-06-04 14:00] VITALS: BP 112/72
[2021-06-05] MEDS: HumaLOG INSULIN (NovoLOG) PER UNIT SC SCH ×3 (01:00→13:45)
[2021-06-05 05:57] VITALS: BP 124/64
[2021-06-05] MEDS: SODIUM CHLORIDE 0.9% INJ 10 ML SYR IV SCH (06:07)
[2021-06-05 07:19] LABS: HEMATOCRIT 34.8 % (42.0-52.0); HEMOGLOBIN 11.1 g/dl (13.5-17.5); MEAN CORPUSCULAR HGB CONC 31.9 g/dl (32.0-36.5); MEAN CORPUSCULAR VOLUME 94.1 fl (80.0-96.0); PLATELET COUNT, AUTOMATED 215 10^3/uL (150-450); WHITE BLOOD COUNT 7.8 10^3/uL (4.0-10.0)
[2021-06-05 07:40] LABS: BLOOD UREA NITROGEN 26 MG/DL (7-18); CALCIUM LEVEL 8.2 MG/DL (8.8-10.2); CARBON DIOXIDE LEVEL 31 MEQ/L (21-32); CHLORIDE LEVEL 96 MEQ/L (98-107); CREATININE FOR GFR 0.86 MG/DL (0.70-1.30); GLOMERULAR FILTRATION RATE > 60.0 (>35); GLUCOSE, FASTING 192 MG/DL (70-100); POTASSIUM SERUM 4.2 MEQ/L (3.5-5.1); SODIUM LEVEL 130 MEQ/L (136-145)
[2021-06-05 08:16] LABS: LYMPHOCYTES 11 % (16-44); MONOCYTES 3 % (0-5); NEUTROPHILS 84 % (28-66); PLATELET ESTIMATE NORMAL (NORMAL)
[2021-06-05] MEDS: FOLIC ACID 1 MG TAB GT SCH (08:19)
[2021-06-05] MEDS: ENOXAPARIN 80MG/0.8ML SYRINGE (J1650 PER 10MG) SC SCH (08:19)
[2021-06-05] MEDS: PERCOCET 5MG/325MG TAB PO PRN (08:20)
[2021-06-05] MEDS: ATORVASTATIN 20 MG TAB GT SCH (08:20)
[2021-06-05 08:21] VITALS: BP 124/64
[2021-06-05] MEDS: amLODIPine 5 MG TAB GT SCH (08:21)
[2021-06-05] MEDS: CLOPIDOGREL 75 MG TAB GT SCH (08:21)
[2021-06-05 14:00] VITALS: BP 80/47
[2021-06-05] MEDS ORDERED: NS 1,000 ML IV ONE (14:10)
[2021-06-05 14:26] VITALS: BP 110/77
[2021-06-05] MEDS ORDERED: SCOPOLAMINE 1MG TRANSDERMAL PATCH TOP PRN (14:50)
--- NOTE | 2021-06-05 15:19 | IPNPDOC ---
Text Note Date of Service The patient was seen on 06/05/21. NOTE Subjective: Patient seen and examined at bedside. Notified by nursing that patient was hypotensive and hypoxic. Patient non-responsive. Objective: General: elderly, frail, chronically ill appearing HEENT: NC, bitemporal wasting Lungs: diminished breath sounds b/l Heart; +S1S2, tachy Abd: soft, +BS Ext: no edema A/P: 86 yo male with a PMHx of NIDDM2, HTN, Prostate CA, Acoustic neuroma s/p gamma knife procedure, who presented to the emergency room with his son reports that patient has not left his better 07/18 much in the last 1 week. Patient was ultimately found to have an acute and subacute infarcts in multiple areas of his brain. Disposition: Extensive discussion with son/HCP. He has opted for [facility] [facility]. Hospice consultation placed. VS,Fishbone, I+O VS, Fishbone, I+O Laboratory Tests 06/05/21 06:55 Vital Signs Date Time Temp Pulse Resp B/P (MAP) Pulse Ox O2 Delivery O2 Flow Rate FiO2 06/05/21 14:26 124 18 110/77 (88) 96 Non-Rebreather 06/05/21 14:00 98.9 I&O- Last 24 Hours up to 6 AM 06/05/21 06:00 Intake Total 2340 ml Output Total 660 ml Balance 1680 ml ANGELA VÁSQUEZ MD Jun 05, 2021 15:19
[2021-06-05] MEDS ORDERED: MORPHINE 10MG/0.5ML ORAL CONCENTRATE SOLUTION U/D SL PRN (15:25)
[2021-06-05] MEDS: MORPHINE 2 MG/ML 1ML VIAL (J2270) IV PRN ×2 (16:10→21:53)
[2021-06-05] MEDS: LORazepam 2 MG/ML VIAL IV PRN (22:17)
[2021-06-06] MEDS: MORPHINE 2 MG/ML 1ML VIAL (J2270) IV PRN ×3 (01:42→06:13)
[2021-06-06] MEDS: LORazepam 2 MG/ML VIAL IV PRN (04:08)
--- NOTE | 2021-06-06 08:03 | DS.PDOC ---
Discharge Summary General Date of Admission May 09, 2021 at 23:33 Date of Discharge 06/06/2021 Discharge Summary PROCEDURES PERFORMED DURING STAY: [None]. 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 HISTORY OF PRESENT ILLNESS: 86 y/o male with a pmh of NIDDM2, htn, and prostate ca who reports to the ED with his son, who states that he has not left his bed or ate or drank much in the past week. Patient himself was pleasantly confused and oriented to person. Patient states that he does not feel sick and says he is simply tired. Son gives most of the history. Son states that his dad seemed very fatigued and according to patient's , has barely left the bed. They deny fevers, vomiting, diarrhea, recent falls. HOSPITAL COURSE: Patient was admitted for further evaluation and treatment. Hospital course initially, as indicated below for treatment of his acute and chronic issues. He was pending placement in a long-term care facility. However, his condition continued to deteriorate. On the day prior to his expiratory he was noted to be unresponsive, hypotensive and hypoxic. Intravenous fluids were administered as well as supplemental oxygen through a nonrebreather mask. His goals of care were discussed with his son who was his healthcare proxy and on further discussion with his family. He opted for comfort measures only. His request was honored. The patient shortly after. 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 Hernandez Deconditioning Chronic urinary retention 2/2 BPH UTI - s/p Treatment with antibiotics History of acoustic neuroma - s/p gamma knife procedure NIDDM23 - c/w ISS Hypertension DISCHARGE MEDICATIONS: Please see below. ALLERGIES: Please see below. PHYSICAL EXAMINATION ON DISCHARGE: Patient . TIME SPENT ON DISCHARGE: 35 minutes. Vital Signs/I&Os Vital Signs Date Time Temp Pulse Resp B/P (MAP) Pulse Ox O2 Delivery O2 Flow Rate FiO2 06/06/21 06:13 18 06/06/21 01:42 Nasal Cannula 06/05/21 14:26 124 110/77 (88) 96 06/05/21 14:00 98.9 I&O- Last 24 Hours up to 6 AM 06/06/21 06:00 Intake Total 0 ml Output Total 775 ml Balance -775 ml Microbiology Microbiology 06/02/21 Blood Culture - Preliminary, Resulted No Growth after 72 hours. All specime... 06/02/21 Blood Culture - Preliminary, Resulted No Growth after 72 hours. All specime... Discharge Medications Scheduled Amlodipine Besylate (Amlodipine Besylate) 5 Mg Tablet, 10 MG PO DAILY Aspirin (Aspirin EC) 81 Mg Tablet.dr, 81 MG PO DAILY Atorvastatin Calcium (Atorvastatin Calcium) 20 Mg Tablet, 40 MG PO DAILY Bacillus Coagulans (Bacid with Lactospore) 1 Each Capsule, 1 CAP PO [facility] Docusate Sodium (Docusate Sodium) 100 Mg Capsule, 100 MG PO BID, (Reported) Finasteride (Finasteride) 5 Mg Tab, 5 MG PO DAILY, (Reported) Folic Acid (Folic Acid) 1 Mg Tab, 1 MG PO DAILY, (Reported) Metformin HCl (Metformin HCl) 500 Mg Tablet, 500 MG PO QAM, (Reported) Metformin HCl (Metformin HCl) 500 Mg Tablet, 1,000 MG PO QPM, (Reported) Rivaroxaban (Xarelto) 20 Mg Tablet, 1 TAB PO DAILY with food Silodosin (Rapaflo) 8 Mg Capsule, 8 MG PO DAILY, (Reported) Miscellaneous Medications [med rec comment] , (Reported) used pt external med history for med rec. called to verify and she said she was going to bed. call back in the morning and hung up phone. Allergies Coded Allergies: Sulfa (Sulfonamide Antibiotics) (Verified Allergy, Severe, MOUTH SWELLING, 06/02/19) ciprofloxacin (Verified Allergy, Severe, JOINT PAIN/SWELLING, 06/02/19) ANGELA VÁSQUEZ MD Jun 06, 2021 08:03
== END 2021-06-06 07:20 | disposition expired | DRG 64 ==
LOC: M ED 19:22 → M ED INP 23:33 → ENRESERV 23:51 → M MSPAV 05-10 00:14 → M PCU 05-22 15:56 → M MS5PR 05-24 18:48
PROVIDERS: ADMIT Internal Medicine; ATTEND Internal Medicine
PROC: 02HV33Z Insertion of Infusion Device into Superior Vena Cava, Percutaneous Approach (ICD-10-PCS; 2021-05-20)
PROC: 0DH63UZ Insertion of Feeding Device into Stomach, Percutaneous Approach (ICD-10-PCS; principal; 2021-05-28 14:30)
DX: I63.533 Cerebral infarction due to unspecified occlusion or stenosis of bilateral posterior cerebral arteries (principal); G93.41 Metabolic encephalopathy; E43 Unspecified severe protein-calorie malnutrition; J96.01 Acute respiratory failure with hypoxia; N39.0 Urinary tract infection, site not specified; F03.91 Unspecified dementia, unspecified severity, with behavioral disturbance; E11.9 Type 2 diabetes mellitus without complications; I10 Essential (primary) hypertension; R13.10 Dysphagia, unspecified; E87.6 Hypokalemia; N40.1 Benign prostatic hyperplasia with lower urinary tract symptoms; Z79.82 Long term (current) use of aspirin; Z79.899 Other long term (current) drug therapy; Z88.2 Allergy status to sulfonamides; Z88.8 Allergy status to other drugs, medicaments and biological substances; N40.0 Benign prostatic hyperplasia without lower urinary tract symptoms; C61 Malignant neoplasm of prostate; Z51.5 Encounter for palliative care